=== PATIENT | male | born 1960 | race Caucasian/White ===

== ENCOUNTER 2017-09-11 19:46 | Observation (INO) | payer OTHER ==
[2017-09-11] MEDS ORDERED: GlucaGen 1 MG IV ONE (20:18)
[2017-09-11] MEDS ORDERED: Zofran 4 MG/2 ML VIAL IV ONE (20:18)
[2017-09-11] MEDS ORDERED: Zofran 4 MG/2 ML VIAL ONE (20:20)
[2017-09-11] MEDS: Sodium Chloride 0.9% 1000 ML 1,000 ML IV SCH (20:29)
--- NOTE | 2017-09-11 20:30 | ERPHSYRPT ---
- History of Present Illness Time Seen by Provider: 09/11/17 20:24 Source: patient Exam Limitations: no limitations Patient Subjective Stated Complaint: c/o pressure in epigastric for last few days, after trying to eat a piece of steak has been vomiting and feeling like has lump in upper chest Triage Nursing Assessment: lungs CTA bilat, having multiple episodes of phlegm and emesis blood tinged on assessment, c/o pain in upper chest Physician History: Pt has been c/o difficulty swallowing for 3 days, had stake at 18:00 PM tonight and unable to tolerate any liquids now, spitting up immediately, developed pain in the epigastric, lower retrosternal area. He denies large vomiting, fever, severe shortness of breath, but was spitting of blood streaks. Timing/Duration: hour(s) (2) Severity: moderate, severe Modifying Factors: Improves With: eating Associated Symptoms: chest pain Allergies/Adverse Reactions: No Known Drug Allergies Allergy (Unverified 11/08/15 11:06) Home Medications: Albuterol 2.5 mg/3 ml Neb [Proventil 2.5 mg/3 ml Neb] 1 neb IH QID PRN PRN 11/08/15 [History] Albuterol Sulfate [Ventolin Hfa] 2 puffs IH Q4HPRN PRN 11/08/15 [History] Fluticasone/Vilanterol [Breo Ellipta 100-25 Mcg INH] 1 puff IH DAILY 11/08/15 [ History] Hydrocodone/APAP 10/325 mg [[place] 10/325 MG Tablet] 1 tab PO .Q5HPRN 11/07 [History] Diclofenac Sodium [Voltaren] 100 gm TP QID 12/14/16 [History] Divalproex Sodium [Depakote ER] 500 mg PO BID 12/14/16 [History] Clonidine HCl 0.1 mg [Catapres 0.1 MG] 1 tab PO BID 09/11/17 [History] Hx Tetanus, Diphtheria Vaccination/Date Given: Yes Hx Influenza Vaccination/Date Given: No Hx Pneumococcal Vaccination/Date Given: No Immunizations Up to Date: Yes - Review of Systems Constitutional: No Symptoms Respiratory: Cough, Other (hemoptysis) Cardiac: Chest Pain Abdominal/Gastrointestinal: Abdominal Pain, Vomiting All Other Systems: Reviewed and Negative - Past Medical History Pertinent Past Medical History: Yes Neurological History: Migraines ENT History: No Pertinent History Cardiac History: Hypertension Respiratory History: COPD, Sleep Apnea Endocrine Medical History: Other Musculoskeletal History: Osteoarthritis GI Medical History: No Pertinent History History: No Pertinent History Psycho-Social History: Anxiety, Depression, Panic Disorder, Other Male Reproductive Disorders: No Pertinent History Other Medical History: degenerative OA, Pancreatitis, - Past Surgical History Past Surgical History: Yes Neuro Surgical History: No Pertinent History Cardiac: No Pertinent History Respiratory: No Pertinent History Gastrointestinal: No Pertinent History Genitourinary: No Pertinent History Musculoskeletal: Other Male Surgical History: No Pertinent History Other Surgical History: cyst to tailbone. rt shoulder 09/01/15 - Social History Smoking Status: Never smoker Exposure to second hand smoke: Yes Drug Use: marijuana Patient Lives Alone: Yes - Nursing Vital Signs Nursing Vital Signs: Initial Vital Signs Temperature 97.3 F 09/11/17 19:57 Pulse Rate 100 H 09/11/17 19:57 Respiratory Rate 20 09/11/17 19:57 Blood Pressure 152/96 09/11/17 19:57 O2 Sat by Pulse Oximetry 99 09/11/17 19:57 Pain Scale Pain Intensity 5 - Physical Exam General Appearance: no apparent distress Eye Exam: eyes nml inspection Ears, Nose, Throat Exam: normal ENT inspection, pharynx normal Neck Exam: normal inspection, non-tender, supple, No mass Respiratory Exam: normal breath sounds, lungs clear, airway intact, No chest tenderness Cardiovascular Exam: regular rate/rhythm, normal heart sounds, normal peripheral pulses, No murmur Gastrointestinal/Abdomen Exam: soft, normal bowel sounds, No tenderness, No distention Back Exam: normal inspection Extremity Exam: normal inspection, No calf tenderness Neurologic Exam: alert, oriented x 3 Skin Exam: normal color, warm, dry Lymphatic Exam: No adenopathy SpO2 Interpretation: normal SpO2: 99 Oxygen Delivery: Room Air - Course Nursing assessment & vital signs reviewed: Yes EKG Interpreted by Me: RATE, Sinus Rhythm, Right Fisher Deviation, NORMAL INTERVALS, Non-specific ST Changes - Radiology Exams Chest X-ray Interpretation: Interpreted by me, Negative Ordered Tests: Active Orders 24 hr Category Date Time Status Up Ad Christelle ROUTINE Activity 09/11/17 21:46 Ordered Admission/Status Order ROUTINE Care 09/11/17 21:45 Ordered Code Status Order ROUTINE Care 09/11/17 21:45 Ordered EKG-ER Only STAT Care 09/11/17 20:49 Active IV Care Q6H Care 09/11/17 21:45 Ordered IV Insertion STAT Care 09/11/17 20:31 Active Vital Signs Q6H Care 09/11/17 21:45 Ordered Consult Surgery ROUTINE Cons 09/11/17 21:45 Ordered NPO Diet 09/11/17 21:46 Ordered CHEST 2 VIEWS (PA AND LAT) Stat Exams 09/11/17 20:50 Taken CBC W DIFF Stat Lab 09/11/17 20:58 Completed CK-Creatinine Phosphokinase Stat Lab 09/11/17 20:58 Completed CMP Stat Lab 09/11/17 20:58 Completed LIPASE Stat Lab 09/11/17 20:58 Completed PROTIME WITH INR Stat Lab 09/11/17 20:49 Completed TROPONIN Q3H Lab 09/11/17 20:58 Completed TROPONIN Q3H Lab 09/12/17 00:00 Ordered TROPONIN Q3H Lab 09/12/17 03:00 Ordered TROPONIN Q3H Lab 09/12/17 06:00 Ordered TROPONIN Q3H Lab 09/12/17 09:00 Ordered Medication Summary Generic Name Dose Route Start Last Admin Trade Name Freq PRN Reason Stop Dose Admin Albuterol/Ipratropium 3 ml 09/11/17 21:45 Duoneb 0.5-3 Mg/3 Ml Neb IH 10/11/17 21:44 Q4HPRN PRN SHORTNESS OF BREATH/WHEEZING Famotidine 20 mg 09/12/17 10:00 09/11/17 21:35 Pepcid 20 Mg Vial IV 10/12/17 09:59 20 mg DAILY KASSIDY Administration Sodium Chloride 1,000 mls @ 100 mls/hr 09/11/17 20:30 09/11/17 20:29 Sodium Chloride 0.9% 1000 Ml IV 10/11/17 20:29 100 mls/hr .Q10H KASSIDY Administration Sodium Chloride 1,000 mls @ 100 mls/hr 09/11/17 21:45 Sodium Chloride 0.9% 1000 Ml IV 10/11/17 21:44 .Q10H KASSIDY Morphine Sulfate 2 mg 09/11/17 21:45 Morphine Sulfate 2 Mg Inj IV 09/16/17 21:44 Q4H PRN PRN PAIN Ondansetron HCl 4 mg 09/11/17 21:45 Zofran 4 Mg/2 Ml Vial IV 10/11/17 21:44 Q6H PRN PRN NAUSEA/VOMITING Discontinued Medications Generic Name Dose Route Start Last Admin Trade Name Freq PRN Reason Stop Dose Admin Al Hydrox/Mg Hydrox/Simethicone Confirm 09/11/17 21:31 Maalox Es 30 Ml Unit Dose Administered 09/11/17 21:32 Dose 30 ml .ROUTE .STK-MED ONE Famotidine Confirm 09/11/17 21:31 Pepcid 20 Mg Vial Administered 09/11/17 21:32 Dose 20 mg IV .STK-MED ONE Glucagon 1 mg 09/11/17 20:18 09/11/17 20:30 Glucagen 1 Mg IV 09/11/17 20:19 1 mg STAT ONE Administration Glucagon Confirm 09/11/17 20:31 Glucagen 1 Mg Administered 09/11/17 20:32 Dose 1 mg .ROUTE .STK-MED ONE Lidocaine HCl Confirm 09/11/17 21:31 Xylocaine Hcl Viscous * Administered 09/11/17 21:32 Dose 15 ml .ROUTE .STK-MED ONE Magnesium Hydroxide 45 ml 09/11/17 21:25 09/11/17 21:35 Gi Cocktail 45 Ml (Maalox/Lidocaine) PO 09/11/17 21:26 45 ml STAT ONE Administration Ondansetron HCl 4 mg 09/11/17 20:18 09/11/17 20:29 Zofran 4 Mg/2 Ml Vial IV 09/11/17 20:19 4 mg STAT ONE Administration Ondansetron HCl Confirm 09/11/17 20:20 Zofran 4 Mg/2 Ml Vial Administered 09/11/17 20:21 Dose 4 mg .ROUTE .STK-MED ONE Lab/Rad Data: Laboratory Result Diagrams 09/11/17 20:58 09/11/17 20:58 Laboratory Results 09/11/17 09/11/17 09/11/17 Range/Units 20:58 20:58 20:58 WBC 12.7 H (4.0-10.5) K/mm3 RBC 4.88 (4.1-5.6) M/mm3 Hgb 15.3 (12.5-18.0) gm/dl Hct 43.8 (42-50) % MCV 89.8 (78-100) fl MCH 31.4 (26-32) pg MCHC 34.9 (32-36) g/dl RDW 13.7 (11.5-14.0) % Plt Count 264 (150-450) K/mm3 MPV 10.2 H (6-9.5) fl Gran % 76.4 H (36.0-66.0) % Lymphocytes % 17.3 L (24.0-44.0) % Monocytes % 5.2 (0.0-12.0) % Eosinophils % 0.9 (0.00-5.0) % Basophils % 0.2 (0.0-0.4) % Basophils # 0.02 (0-0.4) INR (0.8-3.0) Sodium 140 (136-145) mEq/L Potassium 3.5 (3.5-5.1) mEq/L Chloride 101 (98-107) mEq/L Carbon Dioxide 27.6 (21-32) mEq/L Anion Gap 15.1 H (5-15) MEQ/L BUN 11 (9-20) mg/dL Creatinine 1.01 (0.55-1.30) mg/dl Estimated GFR > 60 ML/MIN Glucose 129 H (70-110) MG/DL Calcium 9.2 (8.5-10.1) mg/dL Total Bilirubin 0.40 (0.2-1.0) mg/dL AST 18 (15-37) U/L ALT 23 (12-78) U/L Alkaline Phosphatase 63 (46-116) U/L Creatine Kinase 71 (39-308) U/L Troponin I < 0.017 (0.000-0.056) ng/ml Serum Total Protein 8.5 H (6.4-8.2) gm/dL Albumin 4.5 (3.4-5.0) g/dL Lipase 92 (73-393) U/L 09/11/17 Range/Units 20:49 WBC (4.0-10.5) K/mm3 RBC (4.1-5.6) M/mm3 Hgb (12.5-18.0) gm/dl Hct (42-50) % MCV (78-100) fl MCH (26-32) pg MCHC (32-36) g/dl RDW (11.5-14.0) % Plt Count (150-450) K/mm3 MPV (6-9.5) fl Gran % (36.0-66.0) % Lymphocytes % (24.0-44.0) % Monocytes % (0.0-12.0) % Eosinophils % (0.00-5.0) % Basophils % (0.0-0.4) % Basophils # (0-0.4) INR 0.95 (0.8-3.0) Sodium (136-145) mEq/L Potassium (3.5-5.1) mEq/L Chloride (98-107) mEq/L Carbon Dioxide (21-32) mEq/L Anion Gap (5-15) MEQ/L BUN (9-20) mg/dL Creatinine (0.55-1.30) mg/dl Estimated GFR ML/MIN Glucose (70-110) MG/DL Calcium (8.5-10.1) mg/dL Total Bilirubin (0.2-1.0) mg/dL AST (15-37) U/L ALT (12-78) U/L Alkaline Phosphatase (46-116) U/L Creatine Kinase (39-308) U/L Troponin I (0.000-0.056) ng/ml Serum Total Protein (6.4-8.2) gm/dL Albumin (3.4-5.0) g/dL Lipase (73-393) U/L - Progress Progress: improved Progress Note: 09/11/17 21:48 Improved after 1 mg iv Glucagon, tolerates PO liquids, does not regurgitate, denies severe pain or SOB, no diaphoresis, or distress, stable. I called Dr Vimal Sarabia, discussed our findings and patient's current condition, he agreed to consult patient in the morning. I also called Dr Campbell, discussed this case in details, he agreed to admit patient for observation, pt and his family was informed, and they agreed. - Departure Time of Disposition: 21:50 Departure Disposition: Observation Clinical Impression: Epigastric pain Abdominal pain Qualifiers: Abdominal location: epigastric Qualified Code(s): R10.13 - Epigastric pain GERD (gastroesophageal reflux disease) Qualifiers: Esophagitis presence: esophagitis presence not specified Qualified Code(s): K21.9 - Gastro-esophageal reflux disease without esophagitis Condition: Stable Critical Care Time: No Referrals: GHAZAL CAMPBELL [Primary Care Provider] -
[2017-09-11] MEDS ORDERED: GlucaGen 1 MG ONE (20:31)
[2017-09-11 21:03] LABS: BASOPHIL % 0.2 % (0.0-0.4); Basophil (Absolute #) 0.02 (0-0.4); Eosinophil % 0.9 % (0.00-5.0); Eosinophil (Absolute #) 0.12 (0-0.5); Granulocyte Absolute (ANC) 9.69 (1.4-6.9); Granulocytes % 76.4 % (36.0-66.0); Hematocrit 43.8 % (42-50); Hemoglobin 15.3 gm/dl (12.5-18.0); Lymphocytes % 17.3 % (24.0-44.0); Mean Cell Volume 89.8 fl (78-100); Mean Corpuscular Hemoglobin 31.4 pg (26-32); Mean Corpuscular Hgb Concent. 34.9 g/dl (32-36); Mean Platelet Volume 10.2 fl (6-9.5); Monocyte (Absolute #) 0.66 (0.0-1.3); Monocytes % 5.2 % (0.0-12.0); Platelet Count 264 K/mm3 (150-450); Red Blood Count 4.88 M/mm3 (4.1-5.6); Red Cell Distribution Width 13.7 % (11.5-14.0); White Blood Count 12.7 K/mm3 (4.0-10.5)
[2017-09-11 21:24] LABS: INR 0.95 (0.8-3.0)
[2017-09-11] MEDS ORDERED: GI COCKTAIL 45 ML (Maalox/Lidocaine) PO ONE (21:25)
[2017-09-11] MEDS ORDERED: MAALOX ES 30 ML UNIT DOSE ONE (21:31)
[2017-09-11] MEDS ORDERED: XYLOCAINE HCl Viscous ONE (21:31)
[2017-09-11] MEDS ORDERED: Pepcid 20 MG VIAL IV ONE (21:31)
[2017-09-11 21:33] LABS: ALBUMIN 4.5 g/dL (3.4-5.0); ALKALINE PHOSPHATASE 63 U/L (46-116); ANION GAP 15.1 MEQ/L (5-15); BLOOD UREA NITROGEN 11 mg/dL (9-20); CHLORIDE 101 mEq/L (98-107); CK-Creatinine Phosphokinase 71 U/L (39-308); Calcium 9.2 mg/dL (8.5-10.1); Carbon Dioxide 27.6 mEq/L (21-32); Creatinine 1 1.01 mg/dl (0.55-1.30); EST GLOMERULAR FILTRATION RATE > 60 ML/MIN; Glucose 129 MG/DL (70-110); LIPASE 92 U/L (73-393); Potassium 3.5 mEq/L (3.5-5.1); SGOT/AST 18 U/L (15-37); SGPT/ALT 23 U/L (12-78); SODIUM 140 mEq/L (136-145); Total Protein 8.5 gm/dL (6.4-8.2)
[2017-09-11] MEDS: Pepcid 20 MG VIAL IV SCH (21:35)
[2017-09-11] MEDS ORDERED: MORPHINE SULFATE 2 MG INJ IV PRN (21:45)
[2017-09-11] MEDS ORDERED: Sodium Chloride 0.9% 1000 ML 1,000 ML IV SCH (21:45)
[2017-09-11] MEDS ORDERED: Zofran 4 MG/2 ML VIAL IV PRN (21:45)
[2017-09-11] MEDS ORDERED: DUONEB 0.5-3 MG/3 ml Neb IH PRN (21:45)
[2017-09-12] MEDS ORDERED: PROVENTIL COMMON CANISTER IH PRN (00:09)
[2017-09-12] MEDS: Sodium Chloride 0.9% 1000 ML 1,000 ML IV SCH (06:17)
[2017-09-12] MEDS ORDERED: Norco 10/325 MG Tablet PO PRN (07:00)
[2017-09-12] MEDS ORDERED: PROVENTIL 2.5 MG/3 ML NEB IH PRN (07:00)
[2017-09-12] MEDS ORDERED: Ventolin Hfa MDI IH PRN (07:00)
--- NOTE | 2017-09-12 08:04 | PCM.HP ---
History of Present Illness - Chief Complaint Chief Complaint: epigastric pain, GERD Date: 09/12/17 History of Present Illness: is a 56 year old male. started having increased heartburn and epigastric pain over the last few weeks and started getting a little trouble swallowing about 5 days ago and was vomiting after something got stuck but last night went out to eat and tried to eat a piece of steak and it felt like it got stuck had severe pain and was vomiting yellow foam and some blood tinged. He is still having some epigastric tenderness. The pain was relieved with glucagon and he did take his night time pill without difficulty. - Review of Systems Constitutional: No Fever, No Chills Eyes: No Symptoms Ears, Nose, & Throat: No Symptoms Respiratory: No Cough, No Short Of Breath Cardiac: No Chest Pain, No Edema, No Syncope Abdominal/Gastrointestinal: Abdominal Pain, Nausea, Vomiting, No Diarrhea Genitourinary Symptoms: No Dysuria Musculoskeletal: Back Pain, No Neck Pain Skin: No Rash Neurological: No Dizziness, No Focal Weakness, No Sensory Changes Psychological: No Symptoms Endocrine: No Symptoms Hematologic/Lymphatic: No Symptoms Immunological/Allergic: No Symptoms Medications & Allergies Home Medications: Home Medication List Albuterol 2.5 mg/3 ml Neb [Proventil 2.5 mg/3 ml Neb] 1 neb IH QID PRN PRN 11/08/15 [History Confirmed 09/11/17] Albuterol Sulfate [Ventolin Hfa] 2 puffs IH Q4HPRN PRN 11/08/15 [History Confirmed 09/11/17] Fluticasone/Vilanterol [Breo Ellipta 100-25 Mcg INH] 1 puff IH DAILY 11/08/15 [ History Confirmed 09/11/17] Hydrocodone/APAP 10/325 mg [[place] 10/325 MG Tablet] 1 tab PO .Q5HPRN 11/07 [History Confirmed 09/11/17] Amlodipine Besylate 5 mg [Norvasc 5 mg] 5 mg PO DAILY #0 tablet 11/11/15 [ Rx Confirmed 09/11/17] Diclofenac Sodium [Voltaren] 100 gm TP QID 12/14/16 [History Confirmed 09/11/17] Divalproex Sodium [Depakote ER] 500 mg PO DAILY 12/14/16 [History Confirmed ] Amitriptyline HCl 25 mg [Elavil 25 mg] 75 mg PO HS 09/11/17 [History Confirmed 09/11/17] Clonidine HCl 0.1 mg [Catapres 0.1 MG] 1 tab PO BID 09/11/17 [History Confirmed 09/11/17] Omeprazole 20 MG [Prilosec 20 mg] 20 mg PO DAILY 09/11/17 [History Confirmed ] Allergies/Adverse Reactions: Allergies Allergy/AdvReac Type Severity Reaction Status Date / Time No Known Drug Allergies Allergy Unverified 11/08/15 11:06 - Past Medical History Past Medical History: Yes Neurological History: Migraines ENT History: No Pertinent History Cardiac History: Hypertension Respiratory History: Asthma, COPD, Sleep Apnea Endocrine Medical History: Other Musculoskelatal History: Osteoarthritis GI Medical History: No Pertinent History History: No Pertinent History Pyscho-Social History: Anxiety, Depression, Panic Disorder, Other Male Reproductive Disorders: No Pertinent History Comment: degenerative OA, Pancreatitis - Past Surgical History Past Surgical History: Yes Neuro Surgical History: No Pertinent History Cardiac History: No Pertinent History Respiratory Surgery: No Pertinent History GI Surgical History: No Pertinent History Genitourinary Surgical Hx: No Pertinent History Musculskeletal Surgical Hx: Other Male Surgical History: No Pertinent History Other Surgical History: cyst to tailbone. rt shoulder 09/01/15 - Social History Smoking Status: Never smoker Exposure to second hand smoke: Yes Alcohol: Occasionally Drug Use: marijuana - Physical Exam Vital Signs: Vital Signs - 24 hr Temp Pulse Resp BP Pulse Ox 09/12/17 07:38 97.6 F 80 18 148/78 95 09/12/17 04:00 97.8 F 81 18 156/81 96 09/11/17 23:06 83 18 97 09/11/17 22:22 97.5 F 86 18 143/93 94 L 09/11/17 21:51 99 09/11/17 21:17 88 18 139/83 97 09/11/17 19:57 97.3 F 100 H 20 152/96 99 General Appearance: no apparent distress, alert, obese Neurologic Exam: alert, oriented x 3, cooperative, normal mood/affect, nml cerebellar function, nml station & gait, sensation nml, No motor deficits Eye Exam: PERRL/EOMI, eyes nml inspection Ears, Nose, Throat Exam: normal ENT inspection, TMs normal, pharynx normal, moist mucous membranes Neck Exam: normal inspection, non-tender, supple, full range of motion Respiratory Exam: normal breath sounds, lungs clear, No respiratory distress Cardiovascular Exam: regular rate/rhythm, normal heart sounds, normal peripheral pulses Gastrointestinal/Abdomen Exam: soft, normal bowel sounds, tenderness (epigastric ), other (Diastasis recti), No mass Back Exam: normal inspection, normal range of motion, No CVA tenderness, No vertebral tenderness Extremity Exam: normal inspection, normal range of motion, pelvis stable Skin Exam: normal color, warm, dry, No rash Lymphatic Exam: No adenopathy Results - Other Procedures and Tests Respiratory Therapy 09/12/17 00:09 Respiratory MDI PRN Respiratory Nebulizer PRN 09/12/17 00:12 Respiratory Therapy Consult ROUTINE 09/12/17 10:00 Respiratory MDI DAILY Assessment/Plan (1) Dysphagia Current Visit: Yes Status: Acute Assessment & Plan: likely food bolus improved with glucagon has EGD scheduled with Dr. Sarabia this afternoon discussed the procedure with the patient and he plans to proceed with this continue ppi iv in the meantime Code(s): R13.10 - DYSPHAGIA, UNSPECIFIED (2) Vomiting Current Visit: Yes Status: Acute Qualifiers: Vomiting type: unspecified Vomiting Intractability: non-intractable Nausea presence: with nausea Qualified Code(s): R11.2 - Nausea with vomiting, unspecified Code(s): R11.10 - VOMITING, UNSPECIFIED (3) GERD (gastroesophageal reflux disease) Current Visit: Yes Status: Chronic Qualifiers: Esophagitis presence: esophagitis presence not specified Qualified Code(s) : K21.9 - Gastro-esophageal reflux disease without esophagitis Code(s): K21.9 - GASTRO-ESOPHAGEAL REFLUX DISEASE WITHOUT ESOPHAGITIS (4) Essential hypertension Current Visit: Yes Status: Chronic Code(s): I10 - ESSENTIAL (PRIMARY) HYPERTENSION
--- NOTE | 2017-09-12 08:35 | XRAY ---
Indication: Choking sensation after eating steak. Pain and vomiting. Comparison: None PA/lateral chest demonstrates normal heart and lungs. Bony thorax intact. No radiopaque foreign body.
[2017-09-12] MEDS ORDERED: NON-FORMULARY ITEM (Omeprazole 20 Mg [Prilosec 20 Mg] 20 MG) PO SCH (10:00)
[2017-09-12] MEDS ORDERED: DIVALPROEX SODIUM 500 MG PO SCH (10:00)
[2017-09-12] MEDS ORDERED: Depakote EXTENDED RELEASE 250 MG PO SCH (10:00)
[2017-09-12] MEDS ORDERED: PROTONIX 40 MG IV IV SCH (10:00)
[2017-09-12] MEDS ORDERED: Catapres 0.1 MG PO SCH (10:00)
[2017-09-12] MEDS ORDERED: PATIENT OWN MEDICATION IH SCH (10:00)
[2017-09-12] MEDS ORDERED: NORVASC 5 MG PO SCH (10:00)
[2017-09-12] MEDS ORDERED: FLUCELVAX QUAD 2017-2018 SYR IM ONE (10:00)
[2017-09-12] MEDS ORDERED: Protonix 40MG Tablet PO SCH (10:00)
[2017-09-12] MEDS: Pepcid 20 MG VIAL IV SCH (10:47)
[2017-09-12 12:52] VITALS: O2SAT 96
[2017-09-12] MEDS ORDERED: Lactated Ringers 1,000 ML IV ONE (13:30)
[2017-09-12] MEDS ORDERED: Lactated Ringers 1,000 ML IV SCH (13:33)
[2017-09-12 16:12] VITALS: BP 158/80; PULSE 79
--- NOTE | 2017-09-12 18:18 | PCM.DCORD ---
- Discharge Discharge Date: 09/12/17 Disposition: Home, Self-Care Condition: Stable Prescriptions: New Pantoprazole Sodium [Protonix] 40 mg PO UD #42 tablet.dr Continue Hydrocodone/APAP 10/325 mg [[place] 10/325 MG Tablet] 1 tab PO .Q5HPRN Albuterol 2.5 mg/3 ml Neb [Proventil 2.5 mg/3 ml Neb] 1 neb IH QID PRN PRN PRN Reason: Shortness Of Breath/Wheezing Fluticasone/Vilanterol [Breo Ellipta 100-25 Mcg INH] 1 puff IH DAILY Amlodipine Besylate 5 mg [Norvasc 5 mg] 5 mg PO DAILY #0 tablet Divalproex Sodium [Depakote ER] 500 mg PO DAILY Clonidine HCl 0.1 mg [Catapres 0.1 MG] 1 tab PO BID Amitriptyline HCl 25 mg [Elavil 25 mg] 75 mg PO HS Albuterol Sulfate [Ventolin Hfa] 2 puffs IH Q4HPRN PRN #1 inh PRN Reason: Shortness Of Breath/Wheezing Discontinued Diclofenac Sodium [Voltaren] 100 gm TP QID Omeprazole 20 MG [Prilosec 20 mg] 20 mg PO DAILY Additional Instructions: take the protonix twice a day for 2 weeks then can decrease to daily It is ok to take Tylenol (acetaminophen) but no anti inflammatories like ibuprofen, aspirin or aleve Avoid tobacco, alcohol and caffeine. Follow up with: GHAZAL CAMPBELL [Primary Care Provider] - 09/19/17 1:45 pm
[2017-09-12] MEDS ORDERED: DIPRIVAN 200 MG/20 ML IV ONE (18:34)
[2017-09-12] MEDS ORDERED: Ketamine HCl 50 MG/ML IV ONE (18:34)
[2017-09-12] MEDS ORDERED: ELAVIL 25 MG PO SCH (22:00)
--- NOTE | 2017-09-13 09:12 | OP ---
SURGERY DATE/TIME: 09/12/2017 1455 PREOPERATIVE DIAGNOSIS: Dysphagia with possible foreign body. POSTOPERATIVE DIAGNOSIS: Grade III gastroesophageal reflux disease with a band of grade II irritation with three or four vertical streaks of grade III irritation into the esophagus, small hiatal hernia. There was no stricture. No active bleeding. PROCEDURE: EGD. SURGEON: iNk Sarabia M.D. ANESTHESIA: MAC. COMPLICATIONS: None. CONDITION: Stable. INDICATION: A patient requiring evaluation. DESCRIPTION OF PROCEDURE: Taken to the endoscopy suite. MAC sedation provided by anesthesia and was excellent. The scope was introduced. Pharyngoesophageal junction normal. Esophagus normal. Down to 6 cm below the gastroesophageal junction there were three or four streaks that were 4 cm long and then there was a band about 1 cm wide 360 but there was no stricture. The aperture was about size 54 - 56. There was a small hiatal hernia 1 inch. Fundus, body, antrum, pylorus, duodenal bulb, in the second portion of the duodenum there was superficial duodenal ulceration. Ampullary was normal. Scope withdrawn. The patient tolerated the procedure satisfactorily.
== END 2017-09-12 18:35 | disposition home or self-care (01) ==
LOC: ED 19:46 → MED SURG 22:10
PROVIDERS: ADMIT Family Medicine; ATTEND Family Medicine
PROC: 0DJ08ZZ Inspection of Upper Intestinal Tract, Via Natural or Artificial Opening Endoscopic (ICD-10-PCS; principal; 2017-09-12)
DX: K26.9 Duodenal ulcer, unspecified as acute or chronic, without hemorrhage or perforation (principal); K44.9 Diaphragmatic hernia without obstruction or gangrene; K21.9 Gastro-esophageal reflux disease without esophagitis; I10 Essential (primary) hypertension; J45.909 Unspecified asthma, uncomplicated; J44.9 Chronic obstructive pulmonary disease, unspecified; G47.30 Sleep apnea, unspecified; M19.90 Unspecified osteoarthritis, unspecified site; F41.8 Other specified anxiety disorders; F12.99 Cannabis use, unspecified with unspecified cannabis-induced disorder; R13.10 Dysphagia, unspecified
CPT/HCPCS: 00731; 36000; 36415; 71046; 80053; 82550; 83690; 84484; 85025; 85610; 93005; 94640; 94760; 96360; 96361; 96374; 96375; 99285; G0008; G0378; J1610; J2405; J2704; 90682; A9270-GY

== ENCOUNTER 2020-02-14 20:58 | Emergency (ER) | payer OTHER ==
[2020-02-14] MEDS ORDERED: XYLOCAINE HCl Viscous MM ONE (20:59)
[2020-02-14 21:04] VITALS: O2SAT 97
[2020-02-14] MEDS ORDERED: GI COCKTAIL 45 ML (Maalox/Lidocaine) PO ONE (21:09)
[2020-02-14] MEDS ORDERED: XYLOCAINE HCl Viscous ONE (21:20)
[2020-02-14] MEDS ORDERED: MAALOX ES 30 ML UNIT DOSE ONE (21:20)
[2020-02-14 21:27] LABS: Absolute Neutrophil Ct (ANC) 5.19 (1.4-6.9); BASOPHIL % 0.4 % (0.0-0.4); Basophil (Absolute #) 0.03 (0-0.4); Eosinophil % 2.1 % (0.00-5.0); Eosinophil (Absolute #) 0.18 (0-0.5); Hematocrit 41.7 % (42-50); Hemoglobin 14.2 gm/dl (12.5-18.0); Lymphocyte (Absolute #) 2.53 (1.0-4.6); Lymphocytes % 29.9 % (24.0-44.0); Mean Cell Volume 94.1 fl (78-100); Mean Corpuscular Hemoglobin 32.1 pg (26-32); Mean Corpuscular Hgb Concent. 34.1 g/dl (32-36); Mean Platelet Volume 9.4 fl (7.5-11.0); Monocyte (Absolute #) 0.52 (0.0-1.3); Monocytes % 6.2 % (0.0-12.0); Neutrophil % 61.4 % (36.0-66.0); Platelet Count 179 K/mm3 (150-450); Red Blood Count 4.43 M/mm3 (4.1-5.6); Red Cell Distribution Width 13.6 % (11.5-14.0); White Blood Count 8.5 K/mm3 (4.0-10.5)
[2020-02-14 21:40] LABS: ALBUMIN 4.4 g/dL (3.5-5.0); ALKALINE PHOSPHATASE 51 U/L (38-126); ANION GAP 15.3 MEQ/L (5-15); BLOOD UREA NITROGEN 11 mg/dL (9-20); CHLORIDE 98 mmol/L (98-107); CK-Creatinine Phosphokinase 45 U/L (55-170); Carbon Dioxide 27 mmol/L (22-30); Creatinine 1 0.82 mg/dL (0.66-1.25); Glucose 167 mg/dL (74-106); Potassium 4.2 mmol/L (3.5-5.1); SGOT/AST 45 U/L (17-59); SGPT/ALT 40 U/L (0-50); SODIUM 137 mmol/L (137-145); Total Protein 7.5 g/dL (6.3-8.2)
--- NOTE | 2020-02-14 22:17 | ERPHSYRPT ---
- History of Present Illness Time Seen by Provider: 02/14/20 21:00 Historian: patient Exam Limitations: no limitations Patient Subjective Stated Complaint: "I've had this chest pain indegestion stuff for the last two days. This isn't the first time its happened." Triage Nursing Assessment: Pt presented alert et oriented x3 answering questions appropriately. Pt reported chest pain described as a "burning like heartburn." Pt denied vomiting/diarrhea. Pt reported no alleviating/aggrevating factors. Pupils 4mm reactive. Physician History: tHIS Is a 59-year-old patient presenting to the ED with complaints of heartburn for the past 3 days Reports that he has hiatal hernia, has chronic heartburn, reports that he takes Prilosec, it is progressively become worse He denies chest pain/feevr/decreased oral intake/ urinary or bowel problems Patient's daughter is with him and states that patient is short of breath, tired and nauseous Patient denies any diaphoresis And rates his abdominal pain at 6-7/10, intermittent pain increases with swallowing, resolved with taking omeprazole, non-radiating Timing/Duration: day(s), week(s) (3) Activities at Onset: none Quality: burning Location: epigastric Chest Pain Radiation: no radiation Severity of Pain-Max: mild Modifying Factors: Improves With: antacids Associated Symptoms: nausea, abdominal pain, shortness of breath, No cough, No hurts to breathe, No diaphoresis, No chills, No fever Prior Chest Pain/Cardiac Workup: non-cardiac Nitro Today/Relief: no nitro taken today Aspirin Treatment Today: no aspirin today Allergies/Adverse Reactions: No Known Drug Allergies Allergy (Unverified 02/14/20 21:01) Home Medications: Albuterol 2.5 mg/3 ml Neb [Proventil 2.5 mg/3 ml Neb] 1 neb IH QID PRN PRN 11/08/15 [History] Divalproex Sodium [Depakote ER] 500 mg PO DAILY 12/14/16 [History] Amitriptyline HCl 25 mg [Elavil 25 mg] 75 mg PO HS 09/11/17 [History] Clonidine HCl 0.1 mg [Catapres 0.1 MG] 1 tab PO BID 09/11/17 [History] Alprazolam 0.5 mg [xanAX 0.5 MG] 1 tab PO TID 02/14/20 [History] Amlodipine Besylate 5 mg [Norvasc 5 mg] 10 mg PO DAILY 02/14/20 [History] Furosemide 20 mg [Lasix 20 mg] 1 tab PO DAILY 02/14/20 [History] Gabapentin 2 cap PO TID 02/14/20 [History] Metformin HCl 1 tab PO TID 02/14/20 [History] Potassium Chloride 10 Meq Tab* [Klor Con 10 MEQ] 1 tab PO DAILY 02/14/20 [History] Pravastatin Sodium 1 tab PO DAILY 02/14/20 [History] glipiZIDE [Glipizide] 1 tab PO DAILY 02/14/20 [History] Hx Tetanus, Diphtheria Vaccination/Date Given: No Hx Influenza Vaccination/Date Given: Yes Hx Pneumococcal Vaccination/Date Given: No Travel Risk - International Travel Have you traveled outside of the country in past 3 weeks: No (n) If Yes, where;: n - Coronavirus Screening Close contact with a COVID-19 positive Pt in past 14-21 Days: No - Review of Systems Constitutional: No Symptoms Eyes: No Symptoms Ears, Nose, & Throat: No Symptoms Respiratory: No Symptoms Cardiac: No Symptoms Abdominal/Gastrointestinal: Abdominal Pain, Nausea Genitourinary Symptoms: No Symptoms Musculoskeletal: No Symptoms Skin: No Symptoms Neurological: No Symptoms Psychological: No Symptoms Endocrine: No Symptoms All Other Systems: Reviewed and Negative - Past Medical History Pertinent Past Medical History: Yes Neurological History: Migraines ENT History: No Pertinent History Cardiac History: Hypertension Respiratory History: Asthma, COPD, Sleep Apnea Endocrine Medical History: Other Musculoskeletal History: Osteoarthritis GI Medical History: No Pertinent History History: No Pertinent History Psycho-Social History: Anxiety, Depression, Panic Disorder, Other Male Reproductive Disorders: No Pertinent History Other Medical History: degenerative OA, Pancreatitis - Past Surgical History Past Surgical History: Yes Neuro Surgical History: No Pertinent History Cardiac: No Pertinent History Respiratory: No Pertinent History Gastrointestinal: No Pertinent History Genitourinary: No Pertinent History Musculoskeletal: Other Male Surgical History: No Pertinent History Other Surgical History: cyst to tailbone. rt shoulder 09/01/15 - Social History Smoking Status: Never smoker Exposure to second hand smoke: Yes Drug Use: marijuana Patient Lives Alone: No - Nursing Vital Signs Nursing Vital Signs: Initial Vital Signs Temperature 97.9 F 02/14/20 20:59 Pulse Rate 85 02/14/20 20:59 Respiratory Rate 16 02/14/20 20:59 Blood Pressure 164/87 02/14/20 20:59 O2 Sat by Pulse Oximetry 97 02/14/20 20:59 Pain Scale Pain Intensity 6 - Physical Exam General Appearance: no apparent distress Eye Exam: PERRL/EOMI, eyes nml inspection Ears, Nose, Throat Exam: normal ENT inspection, TMs normal, pharynx normal Neck Exam: normal inspection, non-tender, supple, full range of motion Respiratory Exam: normal breath sounds, chest tenderness, lungs clear, No respiratory distress, No accessory muscle use Cardiovascular Exam: regular rate/rhythm, normal heart sounds, normal peripheral pulses Gastrointestinal/Abdomen Exam: soft, normal bowel sounds, tenderness (epigastric), No distention Back Exam: normal inspection, normal range of motion Extremity Exam: normal inspection, normal range of motion Neurologic Exam: alert, oriented x 3, cooperative, photographer portrait II-XII nml as tested Skin Exam: normal color Lymphatic Exam: No adenopathy SpO2 Interpretation: normal SpO2: 97 O2 Delivery: Room Air - Course EKG Interpreted by Me: Sinus Rhythm, NORMAL AXIS, NORMAL INTERVALS, NORMAL QRS, Non-specific ST Changes Rhythm Strip: Normal Sinus Rhythm Ordered Tests: Active Orders 24 hr Category Date Time Status EKG-ER Only STAT Care 02/14/20 21:08 Active ABDOMEN AND PELVIS W/0 CONTRAS [CT] Stat Exams 02/14/20 21:08 Taken CHEST 1 VIEW (PORTABLE) Stat Exams 02/14/20 21:07 Taken CBC W DIFF Stat Lab 02/14/20 21:15 Completed CK-Creatinine Phosphokinase Stat Lab 02/14/20 21:15 Completed CMP Stat Lab 02/14/20 21:15 Completed TROPONIN Q3H Lab 02/14/20 21:15 Completed TROPONIN Q3H Lab 02/15/20 00:15 Ordered TROPONIN Q3H Lab 02/15/20 03:15 Ordered TROPONIN Q3H Lab 02/15/20 06:15 Ordered TROPONIN Q3H Lab 02/15/20 09:15 Ordered Medication Summary Discontinued Medications Generic Name Dose Route Start Last Admin Trade Name Freq PRN Reason Stop Dose Admin Al Hydrox/Mg Hydrox/Simethicone Confirm 02/14/20 21:20 Maalox Es 30 Ml Unit Dose Administered 02/14/20 21:21 Dose 30 ml .ROUTE .STK-MED ONE Lidocaine HCl Confirm 02/14/20 21:20 Xylocaine Hcl Viscous * Administered 02/14/20 21:21 Dose 1 ml .ROUTE .STK-MED ONE Magnesium Hydroxide 45 ml 02/14/20 21:09 02/14/20 21:23 Gi Cocktail 45 Ml (Maalox/Lidocaine) PO 02/14/20 21:10 45 ml STAT ONE Administration Lab/Rad Data: Laboratory Result Diagrams 02/14/20 21:15 02/14/20 21:15 Laboratory Results 02/14/20 02/14/20 02/14/20 Range/Units 21:15 21:15 21:15 WBC 8.5 (4.0-10.5) K/mm3 RBC 4.43 (4.1-5.6) M/mm3 Hgb 14.2 (12.5-18.0) gm/dl Hct 41.7 L (42-50) % MCV 94.1 (78-100) fl MCH 32.1 H (26-32) pg MCHC 34.1 (32-36) g/dl RDW 13.6 (11.5-14.0) % Plt Count 179 (150-450) K/mm3 MPV 9.4 (7.5-11.0) fl Gran % 61.4 (36.0-66.0) % Eos # (Auto) 0.18 (0-0.5) Absolute Lymphs (auto) 2.53 (1.0-4.6) Absolute Monos (auto) 0.52 (0.0-1.3) Lymphocytes % 29.9 (24.0-44.0) % Monocytes % 6.2 (0.0-12.0) % Eosinophils % 2.1 (0.00-5.0) % Basophils % 0.4 (0.0-0.4) % Absolute Granulocytes 5.19 (1.4-6.9) Basophils # 0.03 (0-0.4) Sodium 137 (137-145) mmol/L Potassium 4.2 (3.5-5.1) mmol/L Chloride 98 (98-107) mmol/L Carbon Dioxide 27 (22-30) mmol/L Anion Gap 15.3 H (5-15) MEQ/L BUN 11 (9-20) mg/dL Creatinine 0.82 (0.66-1.25) mg/dL Estimated GFR > 60.0 ML/MIN Glucose 167 H (74-106) mg/dL Calcium 10.0 (8.4-10.2) mg/dL Total Bilirubin 0.30 (0.2-1.3) mg/dL AST 45 (17-59) U/L ALT 40 (0-50) U/L Alkaline Phosphatase 51 (38-126) U/L Creatine Kinase 45 L (55-170) U/L Troponin I < 0.012 (0.000-0.034) ng/mL Serum Total Protein 7.5 (6.3-8.2) g/dL Albumin 4.4 (3.5-5.0) g/dL - Progress Progress Note: 02/14/20 22:18 This is a 59-year-old patient presenting to the ED for evaluation of epigastric abdominal pain He was seen and evaluated in ED room 4 He was given a GI cocktail following which he felt much better EKG showed no m evidence of acute ischemia Workup Labs: CBC, CMP, troponins, CPK Results: all labs WNL. reviewed UA done 02/12/20- WNL Imaging CT abdomen pelvis witout contrast- no acute abnormality Medications given - GI cocktail 02/14/20 23:28 Pt. feels much better after GI cocktail discussed labs, advised F/u with pcp in am stable discharge - Departure Departure Disposition: Home (in stable condition) Clinical Impression: GERD (gastroesophageal reflux disease) Condition: Stable Critical Care Time: No Referrals: LRARY RESTREPO [Primary Care Provider] - Instructions: Acid Reflux and GERD in Adults (DC) Additional Instructions: Discharge/Care Plan JANE BRASWELL was seen on 02/14/20 in the Emergency Room. The patient was counseled regarding Diagnosis,Lab results, Imaging studies, need for follow up and when to return to the Emergency Room. Prescriptions given: Discharge Note I have spoken with the patient and/or caregivers. I have explained the patient's condition, diagnosis and treatment plan based on the information available to me at this time. I have answered the patient's and/or caregiver's questions and addressed any concerns. The patient and/or caregivers have as good understanding of the patient's diagnosis, condition and treatment plan as can be expected at this point. The vital signs have been stable. The patient's condition is stable and appropriate for discharge from the emergency department. The patient will pursue further outpatient evaluation with the primary care physician or other designated or consulting physician as outlined in the discharge instructions. The patient and/or caregivers are agreeable to this plan of care and follow-up instructions have been explained in detail. The patient and/or caregivers have received these instruction. The patient/and or caregivers are aware that any significant change in condition or worsening of symptoms should prompt an immediate return to this or the closest emergency department or call 911.
[2020-02-14 23:07] VITALS: BP 135/73; PULSE 77
--- NOTE | 2020-02-15 08:58 | XRAY ---
Indication: Epigastric pain. Comparison: September 11, 2017. Portable apical lordotic chest remains clear. Heart is not enlarged. Bony thorax intact with incidental small right humeral head bone cyst. No new/acute findings.
--- NOTE | 2020-02-15 08:58 | XRAY ---
Indication: Epigastric pain. Multiple contiguous axial images obtained through the abdomen and pelvis without contrast as ordered. Comparison: November 08, 2015. Lung bases again demonstrates mild bibasilar dependent atelectasis and stable tiny benign left lower lobe noncalcified nodule. No infiltrate or effusion. Heart is not enlarged. Stomach is distended with food/fluid with a few intraluminal medication/pills. Noncontrasted stomach and bowel loops appear nonobstructed. Stable small duodenal diverticulum. Normal appendix. There is now mild diffuse scattered colonic fecal debris throughout. No free fluid/air. Gallbladder partially contracted without gallstones or abnormal biliary distention. Remaining liver, pancreas, spleen, adrenal glands, kidneys, ureters, and bladder appear unremarkable for noncontrast exam. Minimal aortoiliac calcifications without AAA. Osseous structures intact with interval worsening mild/moderate degenerative changes throughout the thoracolumbar spine. No ventral hernias. Impression: 1. Mild fecal stasis without obstruction. 2. Stable small duodenal diverticulum and benign left lower lobe noncalcified micro-nodule. 3. Remaining CT abdomen/pelvis without contrast exam is negative. Comment: Preliminary interpretation was made by [facility]. No critical discrepancy.
== END 2020-02-14 23:45 | disposition home or self-care (01) ==
LOC: ED 20:58
DX: K21.9 Gastro-esophageal reflux disease without esophagitis (principal); R10.13 Epigastric pain; R11.0 Nausea; Z79.899 Other long term (current) drug therapy; I10 Essential (primary) hypertension
CPT/HCPCS: 36415; 71045; 74176; 80053; 82550; 84484; 85025; 93005; 99284; A9270-GY

== ENCOUNTER 2020-06-04 04:00 | Emergency (ER) | payer OTHER ==
[2020-06-04] MEDS ORDERED: MORPHINE SULFATE 4 MG INJ IV ONE (04:09)
[2020-06-04] MEDS ORDERED: Zofran 4 MG/2 ML VIAL IV ONE (04:09)
[2020-06-04] MEDS ORDERED: Nitrostat 0.4 MG (ED) SL ONE (04:09)
[2020-06-04] MEDS ORDERED: BABY ASPIRIN 81 MG CHEW PO ONE (04:09)
--- NOTE | 2020-06-04 04:09 | ERPHSYRPT ---
<MOSHE JSASO - Last Filed: 06/04/20 06:58> - History of Present Illness Time Seen by Provider: 06/04/20 04:00 Historian: patient, family Exam Limitations: no limitations Physician History: This is an obese 59-year-old white male with a history of diabetes, hypertension, hypercholesterolemia, anxiety issues, COPD and asthma who was layi ng down trying to go to sleep approximately 3 to 4 hours prior to this evaluation in the emergency department when he began having left anterior chest pain without radiation. The pain is sharp and stabbing. He has had no associated shortness of breath or cough with it. He has no abdominal pain. He has no nausea vomiting or diarrhea. Patient states he has no known history of myocardial infarction or coronary artery disease. Timing/Duration: today Activities at Onset: sleep Quality: sharpness, stabbing Location: other (Left anterior chest) Chest Pain Radiation: no radiation Severity of Pain-Max: moderate Severity of Pain-Current: moderate Modifying Factors: Improves With: nothing Prior Chest Pain/Cardiac Workup: no prior chest pain, no prior cardiac workup Nitro Today/Relief: no nitro taken today Aspirin Treatment Today: no aspirin today Allergies/Adverse Reactions: No Known Drug Allergies Allergy (Verified 06/04/20 04:02) Home Medications: Albuterol 2.5 mg/3 ml Neb [Proventil 2.5 mg/3 ml Neb] 1 neb IH QID PRN PRN 11/08/15 [History] Divalproex Sodium [Depakote ER] 500 mg PO DAILY 12/14/16 [History] Amitriptyline HCl 25 mg [Elavil 25 mg] 150 mg PO HS 09/11/17 [History] Clonidine HCl 0.1 mg [Catapres 0.1 MG] 1 tab PO BID 09/11/17 [History] Alprazolam 0.5 mg [xanAX 0.5 MG] 1 tab PO TID 02/14/20 [History] Amlodipine Besylate 5 mg [Norvasc 5 mg] 10 mg PO DAILY 02/14/20 [History] Furosemide 20 mg [Lasix 20 mg] 1 tab PO DAILY 02/14/20 [History] Gabapentin 2 cap PO TID 02/14/20 [History] Metformin HCl 1 tab PO TID 02/14/20 [History] Potassium Chloride 10 Meq Tab* [Klor Con 10 MEQ] 1 tab PO DAILY 02/14/20 [History] Pravastatin Sodium 1 tab PO DAILY 02/14/20 [History] Omeprazole 20 mg PO DAILY 06/04/20 [History] SUMAtriptan succinate [Imitrex 50 mg] 50 mg PO UD PRN 06/04/20 [History] Hx Tetanus, Diphtheria Vaccination/Date Given: No Hx Influenza Vaccination/Date Given: Yes Hx Pneumococcal Vaccination/Date Given: No Travel Risk - International Travel Have you traveled outside of the country in past 3 weeks: No - Coronavirus Screening Are you exhibiting any of the following symptoms?: No Close contact with a COVID-19 positive Pt in past 14-21 Days: No - Review of Systems Constitutional: No Symptoms Eyes: No Symptoms Ears, Nose, & Throat: No Symptoms Respiratory: No Symptoms Cardiac: Chest Pain Abdominal/Gastrointestinal: No Symptoms Genitourinary Symptoms: No Symptoms Musculoskeletal: No Symptoms Skin: No Symptoms Neurological: No Symptoms Psychological: No Symptoms Endocrine: No Symptoms Hematologic/Lymphatic: No Symptoms Immunological/Allergic: No Symptoms All Other Systems: Reviewed and Negative - Past Medical History Pertinent Past Medical History: Yes Neurological History: Migraines ENT History: No Pertinent History Cardiac History: Hypertension Respiratory History: Asthma, COPD, Sleep Apnea Endocrine Medical History: Other Musculoskeletal History: Osteoarthritis GI Medical History: No Pertinent History History: No Pertinent History Psycho-Social History: Anxiety, Depression, Panic Disorder, Other Male Reproductive Disorders: No Pertinent History Other Medical History: degenerative OA, Pancreatitis - Past Surgical History Past Surgical History: Yes Neuro Surgical History: No Pertinent History Cardiac: No Pertinent History Respiratory: No Pertinent History Gastrointestinal: No Pertinent History Genitourinary: No Pertinent History Musculoskeletal: Other Male Surgical History: No Pertinent History Other Surgical History: cyst to tailbone. rt shoulder 09/01/15 - Social History Smoking Status: Never smoker Exposure to second hand smoke: Yes Drug Use: marijuana Patient Lives Alone: No - Physical Exam General Appearance: mild distress, alert, anxiety, obese Eye Exam: PERRL/EOMI, eyes nml inspection Ears, Nose, Throat Exam: normal ENT inspection, moist mucous membranes Neck Exam: normal inspection, non-tender, supple, full range of motion Respiratory Exam: normal breath sounds, chest tenderness, lungs clear, airway intact, No respiratory distress Cardiovascular Exam: regular rate/rhythm, normal heart sounds, normal peripheral pulses Gastrointestinal/Abdomen Exam: soft, normal bowel sounds, No tenderness Rectal Exam: not done Back Exam: normal inspection, normal range of motion, No CVA tenderness, No vertebral tenderness Extremity Exam: normal inspection, normal range of motion, pelvis stable Neurologic Exam: alert, oriented x 3, cooperative, director of land II-XII nml as tested, normal mood/affect, nml cerebellar function, nml station & gait, sensation nml Skin Exam: normal color, warm, dry Lymphatic Exam: No adenopathy SpO2 Interpretation: normal O2 Delivery: Room Air - Course Nursing assessment & vital signs reviewed: Yes EKG Interpreted by Me: RATE (102), Sinus Tach, NORMAL AXIS, NORMAL INTERVALS, NORMAL QRS, Other (No change from comparison EKG dated 02/14/2020 other than there is slight sinus tachycardia today versus a normal sinus rhythm/rate on 02/14/2020 EKG) - Progress Progress: improved, re-examined Air Movement: good Progress Note: 06/04/20 06:42 Chest x-ray shows no acute cardiopulmonary process. Clinically, the patient is still having some chest pain with deep inspiration. We will proceed with the CAT scan of the chest with contrast. 06/04/20 06:[address] Hugo who is coming on at shift change. I reviewed the jey ent history, condition, EKG findings, x-ray results and laboratory results. He accepts the patient in transfer care at shift change. Blood Culture(s) Obtained: No Antibiotics given: No Counseled pt/family regarding: lab results, diagnosis, need for follow-up, rad results - Departure Departure Disposition: Home Clinical Impression: Chest pain Qualifiers: Chest pain type: unspecified Qualified Code(s): R07.9 - Chest pain, unspecified Condition: Stable Critical Care Time: No Referrals: LARRY RESTREPO [Primary Care Provider] - Follow Up with PCP/3 days ALEXANDR WILDER [ACTIVE STAFF] - (in 2 days for reevaluation) Instructions: Angina (DC), Chest Pain (DC) Additional Instructions: Follow-up with your primary care and cardiology for reevaluation of chest pain. Return to ER if again has chest pain, palpitations, shortness of breath etc. <MORRIS HUGO - Last Filed: 06/04/20 15:41> - Nursing Vital Signs Nursing Vital Signs: Initial Vital Signs Temperature 98.1 F 06/04/20 04:04 Pulse Rate 88 06/04/20 04:04 Respiratory Rate 18 06/04/20 04:04 Blood Pressure 161/95 06/04/20 04:04 O2 Sat by Pulse Oximetry 95 06/04/20 04:04 Pain Scale Pain Intensity 0 Ordered Tests: Active Orders 24 hr Category Date Time Status Assistant Project Manager STAT Care 06/04/20 04:10 Completed EKG-ER Only STAT Care 06/04/20 04:09 Completed IV Insertion STAT Care 06/04/20 04:09 Completed Pulse Oximetry (ED) STAT Care 06/04/20 04:09 Completed CHEST 1 VIEW (PORTABLE) Stat Exams 06/04/20 04:09 Taken CHEST WITH CONTRAST [CT] Stat Exams 06/04/20 06:41 Taken CBC W DIFF Stat Lab 06/04/20 04:20 Completed CMP Stat Lab 06/04/20 04:20 Completed D-DIMER QUANTITATIVE Stat Lab 06/04/20 04:20 Completed NT PRO BNP Stat Lab 06/04/20 04:20 Completed PROTIME WITH INR Stat Lab 06/04/20 04:20 Completed TROPONIN Q3H Lab 06/04/20 04:20 Completed TROPONIN Q3H Lab 06/04/20 07:43 Completed Medication Summary Discontinued Medications Generic Name Dose Route Start Last Admin Trade Name Freq PRN Reason Stop Dose Admin Aspirin 324 mg 06/04/20 04:09 06/04/20 04:17 Baby Aspirin 81 Mg Chew PO 06/04/20 04:10 324 mg STAT ONE Administration Sodium Chloride 500 mls @ 500 mls/hr 06/04/20 06:41 06/04/20 07:54 Sodium Chloride 0.9% 500 Ml IV 06/04/20 07:40 Infused .Q1H ONE Infusion Sodium Chloride Confirm 06/04/20 06:47 Sodium Chloride 0.9% 500 Ml Administered 06/04/20 06:48 Dose 500 mls @ ud IV .STK-MED ONE Morphine Sulfate 4 mg 06/04/20 04:09 06/04/20 04:24 Morphine Sulfate 4 Mg Inj IV 06/04/20 04:10 4 mg STAT ONE Administration Morphine Sulfate Confirm 06/04/20 04:21 Morphine Sulfate 4 Mg Inj Administered 06/04/20 04:22 Dose 4 mg .ROUTE .STK-MED ONE Nitroglycerin 0.4 mg 06/04/20 04:09 06/04/20 04:17 Nitrostat 0.4 Mg (Ed) SL 06/04/20 04:10 0.4 mg STAT ONE Administration Ondansetron HCl 4 mg 06/04/20 04:09 06/04/20 04:24 Zofran 4 Mg/2 Ml Vial IV 06/04/20 04:10 4 mg STAT ONE Administration Ondansetron HCl Confirm 06/04/20 04:21 Zofran 4 Mg/2 Ml Vial Administered 06/04/20 04:22 Dose 4 mg .ROUTE .STK-MED ONE Lab/Rad Data: Laboratory Result Diagrams 06/04/20 04:20 06/04/20 04:20 Laboratory Results 06/04/20 06/04/20 06/04/20 Range/Units 07:43 04:20 04:20 WBC (4.0-10.5) K/mm3 RBC (4.1-5.6) M/mm3 Hgb (12.5-18.0) gm/dl Hct (42-50) % MCV (78-100) fl MCH (26-32) pg MCHC (32-36) g/dl RDW (11.5-14.0) % Plt Count (150-450) K/mm3 MPV (7.5-11.0) fl Gran % (36.0-66.0) % Eos # (Auto) (0-0.5) Absolute Lymphs (auto) (1.0-4.6) Absolute Monos (auto) (0.0-1.3) Lymphocytes % (24.0-44.0) % Monocytes % (0.0-12.0) % Eosinophils % (0.00-5.0) % Basophils % (0.0-0.4) % Absolute Granulocytes (1.4-6.9) Basophils # (0-0.4) PT 10.7 (8.83-12.87) SECONDS INR 0.95 (0.8-3.0) D-Dimer 607 H* (215-500) ng/mL Sodium (137-145) mmol/L Potassium (3.5-5.1) mmol/L Chloride (98-107) mmol/L Carbon Dioxide (22-30) mmol/L Anion Gap (5-15) MEQ/L BUN (9-20) mg/dL Creatinine (0.66-1.25) mg/dL Estimated GFR ML/MIN Glucose (74-106) mg/dL Calcium (8.4-10.2) mg/dL Total Bilirubin (0.2-1.3) mg/dL AST (17-59) U/L ALT (0-50) U/L Alkaline Phosphatase (38-126) U/L Troponin I < 0.012 < 0.012 (0.000-0.034) ng/mL NT-Pro-B Natriuret Pep (0-900) pg/mL Serum Total Protein (6.3-8.2) g/dL Albumin (3.5-5.0) g/dL 06/04/20 06/04/20 Range/Units 04:20 04:20 WBC 7.4 (4.0-10.5) K/mm3 RBC 3.95 L (4.1-5.6) M/mm3 Hgb 12.4 L (12.5-18.0) gm/dl Hct 38.0 L (42-50) % MCV 96.2 (78-100) fl MCH 31.4 (26-32) pg MCHC 32.6 (32-36) g/dl RDW 14.9 H (11.5-14.0) % Plt Count 194 (150-450) K/mm3 MPV 9.5 (7.5-11.0) fl Gran % 58.1 (36.0-66.0) % Eos # (Auto) 0.12 (0-0.5) Absolute Lymphs (auto) 2.38 (1.0-4.6) Absolute Monos (auto) 0.57 (0.0-1.3) Lymphocytes % 32.3 (24.0-44.0) % Monocytes % 7.7 (0.0-12.0) % Eosinophils % 1.6 (0.00-5.0) % Basophils % 0.3 (0.0-0.4) % Absolute Granulocytes 4.28 (1.4-6.9) Basophils # 0.02 (0-0.4) PT (8.83-12.87) SECONDS INR (0.8-3.0) D-Dimer (215-500) ng/mL Sodium 136 L (137-145) mmol/L Potassium 3.9 (3.5-5.1) mmol/L Chloride 99 (98-107) mmol/L Carbon Dioxide 27 (22-30) mmol/L Anion Gap 13.7 (5-15) MEQ/L BUN 9 (9-20) mg/dL Creatinine 0.76 (0.66-1.25) mg/dL Estimated GFR > 60.0 ML/MIN Glucose 183 H (74-106) mg/dL Calcium 9.0 (8.4-10.2) mg/dL Total Bilirubin 0.50 (0.2-1.3) mg/dL AST 25 (17-59) U/L ALT 14 (0-50) U/L Alkaline Phosphatase 48 (38-126) U/L Troponin I (0.000-0.034) ng/mL NT-Pro-B Natriuret Pep 128 (0-900) pg/mL Serum Total Protein 7.0 (6.3-8.2) g/dL Albumin 4.1 (3.5-5.0) g/dL - Progress Progress Note: 06/04/20 08:42 Patient is checked out to me at shift change by Dr. Jasso with pending second troponin and CTA chest to rule out PE. Plan was to discharge patient if work-up is negative. Patient presented with left-sided chest pain which improved with symptomatic treatment in the ER. Unremarkable work-up grossly. Patient does have multiple risk factors for heart disease, although she has negative work-up but still have a risk and recommended observation admission and further testing but patient does not want to stay but states "I believe I pulled my muscle and would be fine". There has some element of reproducibility as well with lifting the head causing pain in the left chest. I would refer him outpatient with cardiology for reevaluation. Discussed signs symptoms of worsening needing return to ER which he seems understanding. Stable for discharge at this point. Counseled pt/family regarding: lab results, diagnosis, need for follow-up, rad results - Departure Departure Disposition: Home
[2020-06-04] MEDS ORDERED: MORPHINE SULFATE 4 MG INJ ONE (04:21)
[2020-06-04] MEDS ORDERED: Zofran 4 MG/2 ML VIAL ONE (04:21)
[2020-06-04 04:43] LABS: Absolute Neutrophil Ct (ANC) 4.28 (1.4-6.9); BASOPHIL % 0.3 % (0.0-0.4); Basophil (Absolute #) 0.02 (0-0.4); Eosinophil % 1.6 % (0.00-5.0); Eosinophil (Absolute #) 0.12 (0-0.5); Hemoglobin 12.4 gm/dl (12.5-18.0); Lymphocyte (Absolute #) 2.38 (1.0-4.6); Lymphocytes % 32.3 % (24.0-44.0); Mean Cell Volume 96.2 fl (78-100); Mean Corpuscular Hemoglobin 31.4 pg (26-32); Mean Corpuscular Hgb Concent. 32.6 g/dl (32-36); Mean Platelet Volume 9.5 fl (7.5-11.0); Monocyte (Absolute #) 0.57 (0.0-1.3); Monocytes % 7.7 % (0.0-12.0); Neutrophil % 58.1 % (36.0-66.0); Platelet Count 194 K/mm3 (150-450); Red Blood Count 3.95 M/mm3 (4.1-5.6); Red Cell Distribution Width 14.9 % (11.5-14.0); White Blood Count 7.4 K/mm3 (4.0-10.5)
[2020-06-04 05:01] LABS: INR 0.95 (0.8-3.0); PROTIME 10.7 SECONDS (8.83-12.87)
[2020-06-04 05:05] LABS: ALBUMIN 4.1 g/dL (3.5-5.0); ALKALINE PHOSPHATASE 48 U/L (38-126); ANION GAP 13.7 MEQ/L (5-15); BLOOD UREA NITROGEN 9 mg/dL (9-20); CHLORIDE 99 mmol/L (98-107); Carbon Dioxide 27 mmol/L (22-30); Creatinine 1 0.76 mg/dL (0.66-1.25); EST GLOMERULAR FILTRATION RATE > 60.0 ML/MIN; Glucose 183 mg/dL (74-106); NT PRO BNP 128 pg/mL (0-900); Potassium 3.9 mmol/L (3.5-5.1); SGOT/AST 25 U/L (17-59); SGPT/ALT 14 U/L (0-50); SODIUM 136 mmol/L (137-145)
[2020-06-04] MEDS ORDERED: Sodium Chloride 0.9% 500 ML 500 ML IV ONE ×2 (06:41→06:47)
[2020-06-04 07:07] VITALS: PULSE 81; O2SAT 95
[2020-06-04 08:24] VITALS: BP 127/73
--- NOTE | 2020-06-04 17:02 | XRAY ---
Indication: Chest pain. Comparison: February 14, 2020. Portable apical lordotic chest less inflated with new CT proven left base atelectasis and tiny effusion. Remaining heart and lungs unremarkable. Bony thorax intact.
--- NOTE | 2020-06-04 17:05 | XRAY ---
Indication: Chest pain. Elevated d-dimer. Multiple contiguous axial images obtained through the chest using 100 cc Isovue 370 contrast and PE protocol. Comparison: None There is good opacification of the pulmonary arteries including lobar and segmental branches. No pulmonary embolus. Heart is not enlarged. Prominent epicardiac fat. Aorta is normal in course and caliber. Tiny left hilar calcified node. No pathologic mediastinal/hilar lymphadenopathy. Lungs demonstrates bilateral dependent atelectasis with tiny left effusion. No suspicious pulmonary mass or infiltrate. Bony thorax intact with minimal degenerative changes throughout the spine. Limited upper abdomen demonstrate mild fatty liver. Impression: 1. Negative pulmonary embolus. 2. Bilateral dependent atelectasis, tiny nonspecific left effusion, and fatty liver. Comment: Preliminary interpretation was made by [facility]. No critical discrepancy.
== END 2020-06-04 08:58 | disposition home or self-care (01) ==
LOC: ED 04:00
DX: R07.89 Other chest pain (principal); E11.9 Type 2 diabetes mellitus without complications; I10 Essential (primary) hypertension; E78.00 Pure hypercholesterolemia, unspecified; F41.9 Anxiety disorder, unspecified; J44.9 Chronic obstructive pulmonary disease, unspecified; J45.909 Unspecified asthma, uncomplicated; Z79.899 Other long term (current) drug therapy
CPT/HCPCS: 36000; 36415; 71045; 71260; 80053; 83880; 84484; 85025; 85379; 85610; 93005; 93041; 94760; 96374; 96375; 99285; J2270; J2405; A9270-GY

== ENCOUNTER 2021-02-07 15:25 | Observation (INO) | payer OTHER ==
[2021-02-07] MEDS ORDERED: Sodium Chloride 0.9% 1000 ML 1,000 ML IV SCH ×2 (15:45→18:00)
[2021-02-07] MEDS ORDERED: Sodium Chloride 0.9% 1000 ML 1,000 ML ONE (15:51)
[2021-02-07 16:07] LABS: Absolute Neutrophil Ct (ANC) 5.98 (1.4-6.9); BASOPHIL % 0.3 % (0.0-0.4); Basophil (Absolute #) 0.03 (0-0.4); Eosinophil % 1.7 % (0.00-5.0); Eosinophil (Absolute #) 0.17 (0-0.5); Hematocrit 39.8 % (42-50); Hemoglobin 13.4 gm/dl (12.5-18.0); Lymphocytes % 32.3 % (24.0-44.0); Mean Cell Volume 92.3 fl (78-100); Mean Corpuscular Hemoglobin 31.1 pg (26-32); Mean Corpuscular Hgb Concent. 33.7 g/dl (32-36); Mean Platelet Volume 9.3 fl (7.5-11.0); Monocyte (Absolute #) 0.75 (0.0-1.3); Monocytes % 7.3 % (0.0-12.0); Neutrophil % 58.4 % (36.0-66.0); Platelet Count 205 K/mm3 (150-450); Red Blood Count 4.31 M/mm3 (4.1-5.6); Red Cell Distribution Width 13.2 % (11.5-14.0); White Blood Count 10.2 K/mm3 (4.0-10.5)
--- NOTE | 2021-02-07 16:12 | ERPHSYRPT ---
- History of Present Illness Time Seen by Provider: 02/07/21 15:30 Source: patient Exam Limitations: no limitations Patient Subjective Stated Complaint: Pt reports falling 7-8 times last night and neighbor states that he was confused, pt doesn't remember being confused, pt has lump to left eye brow, pain to right arm and pain to left hip Triage Nursing Assessment: Pt brought to the ER via EMS, vitals wnl, rates pain as 7/10 to his left arm and right hip, pt unsure why he fell so many times last night, lisbeth feet edema, pulses normal, skin n/w/d, very talkative and confusing but is answering questions correctly, A&O x3 Physician History: Patient is a 60-year-old male presents to our ED via EMS for evaluation of freq uent falls and confusion. EMS reports that neighbor told them patient was confused yesterday night. Patient states that he has poor memory. He feels like he is having difficulty remembering things. Patient is a poor historian. It is observed that patient has a contusion to his left eye. Patient complaining of pain to his left arm and right hip. No associated chest pain or shortness of breath. No nausea vomiting or diaphoresis. Symptoms are mild to moderate in intensity. No specific worsening improving factors. Timing/Duration: yesterday Severity: moderate Modifying Factors: Improves With: nothing Associated Symptoms: denies symptoms Allergies/Adverse Reactions: No Known Drug Allergies Allergy (Verified 06/04/20 04:02) Home Medications: Divalproex Sodium [Depakote ER] 500 mg PO BID 12/14/16 [History] Clonidine HCl 0.1 mg [Catapres 0.1 MG] 1 tab PO TID 09/11/17 [History] ALPRAZolam 0.5 MG [xanAX 0.5 MG] 2 tab PO BID 02/14/20 [History] Amlodipine Besylate 5 mg [Norvasc 5 mg] 10 mg PO DAILY 02/14/20 [History] Furosemide 20 mg [Lasix 20 mg] 1 tab PO DAILY 02/14/20 [History] Gabapentin 2 cap PO TID 02/14/20 [History] Metformin HCl 2 tab PO BID 02/14/20 [History] Potassium Chloride 10 Meq Tab* [Klor Con 10 MEQ] 1 tab PO DAILY 02/14/20 [History] Pravastatin Sodium 1 tab PO DAILY 02/14/20 [History] Omeprazole 20 mg PO DAILY 06/04/20 [History] SUMAtriptan succinate [Imitrex 50 mg] 50 mg PO UD PRN 06/04/20 [History] Aspirin EC 81 mg [Ecotrin 81 mg] 81 mg PO DAILY 02/07/21 [History] Famotidine 20 mg [Pepcid 20 MG] 20 mg PO DAILY 02/07/21 [History] Propranolol HCl [Propranolol HCl ER] 60 mg PO DAILY 02/07/21 [History] Sertraline HCl 50 mg [Zoloft 50 mg Tablet] 50 mg PO DAILY 02/07/21 [History] Hx Tetanus, Diphtheria Vaccination/Date Given: No Hx Influenza Vaccination/Date Given: Yes Hx Pneumococcal Vaccination/Date Given: No Travel Risk - International Travel Have you traveled outside of the country in past 3 weeks: No - Coronavirus Screening Are you exhibiting any of the following symptoms?: No Close contact with a COVID-19 positive Pt in past 14-21 Days: No - Vaccine Status Have you recieved a Covid-19 vaccination: Yes Product Technology Scientist: Moderna - Vaccination Dates Date of 2cond Vaccination (if applicable): December 24, 2020 - Review of Systems Constitutional: No Symptoms, No Fever, No Chills Eyes: No Symptoms Ears, Nose, & Throat: No Symptoms Respiratory: No Symptoms, No Cough, No Dyspnea Cardiac: No Symptoms, No Chest Pain, No Edema, No Syncope Abdominal/Gastrointestinal: No Symptoms, No Abdominal Pain, No Nausea, No Vomiting, No Diarrhea Genitourinary Symptoms: No Symptoms, No Dysuria Musculoskeletal: No Symptoms, No Back Pain, No Neck Pain Skin: No Symptoms, No Rash Neurological: No Symptoms, No Dizziness, No Focal Weakness, No Sensory Changes Psychological: No Symptoms Endocrine: No Symptoms Hematologic/Lymphatic: No Symptoms Immunological/Allergic: No Symptoms All Other Systems: Reviewed and Negative - Past Medical History Pertinent Past Medical History: Yes Neurological History: Migraines ENT History: No Pertinent History Cardiac History: Hypertension Respiratory History: Asthma, COPD, Sleep Apnea Endocrine Medical History: Other Musculoskeletal History: Osteoarthritis GI Medical History: No Pertinent History History: No Pertinent History Psycho-Social History: Anxiety, Depression, Panic Disorder, Other Male Reproductive Disorders: No Pertinent History Other Medical History: degenerative OA, Pancreatitis - Past Surgical History Past Surgical History: Yes Neuro Surgical History: No Pertinent History Cardiac: No Pertinent History Respiratory: No Pertinent History Gastrointestinal: No Pertinent History Genitourinary: No Pertinent History Musculoskeletal: Other Male Surgical History: No Pertinent History Other Surgical History: cyst to tailbone. rt shoulder 09/01/15 - Social History Smoking Status: Never smoker Exposure to second hand smoke: Yes Drug Use: marijuana Patient Lives Alone: Yes - Nursing Vital Signs Nursing Vital Signs: Initial Vital Signs Temperature 98.3 F 02/07/21 15:26 Pulse Rate 64 02/07/21 15:26 Blood Pressure 108/74 02/07/21 15:26 O2 Sat by Pulse Oximetry 96 02/07/21 15:26 Pain Scale Pain Intensity 0 - Physical Exam General Appearance: no apparent distress, alert Eye Exam: PERRL/EOMI, eyes nml inspection Ears, Nose, Throat Exam: normal ENT inspection, TMs normal, pharynx normal, moist mucous membranes Neck Exam: normal inspection, non-tender, supple, full range of motion Respiratory Exam: normal breath sounds, lungs clear, No respiratory distress Cardiovascular Exam: regular rate/rhythm, normal heart sounds, normal peripheral pulses Gastrointestinal/Abdomen Exam: soft, normal bowel sounds, No tenderness, No mass Back Exam: normal inspection, normal range of motion, No CVA tenderness, No vertebral tenderness Extremity Exam: normal inspection, normal range of motion, pelvis stable Neurologic Exam: alert, oriented x 3, cooperative, normal mood/affect, nml cerebellar function, nml station & gait, sensation nml, No motor deficits Skin Exam: normal color, warm, dry, No rash Lymphatic Exam: No adenopathy SpO2: 95 - Radiology Exams Chest X-ray Interpretation: Teleradiologist Report (Portable chest demonstrates normal heart and lungs. Bony thorax intact.No new acute findings.) Hip X-ray Interpretation: Teleradiologist Report (Right hip x-ray demonstrates mild lumbosacral junction degenerative facet hypertrophy. No other bony articular or soft tissue abnormalities.) Humerus X-ray Interpretation: Teleradiologist Report (2 view left humerus demonstrates mild AC degenerative arthropathy and IV catheter overlying elbow. No other bony articular or soft tissue abnormalities) - CT Exams Abdomen/Pelvis CT Interpretation: Tele-radiologist Report (Fecal debris. New tiny gallbladder sludge/gravel. Diffuse fecal stasis, small duodenal diverticulum, chronic bony spine changes. Otherwise negative CT abdomen pelvis with contrast) Head CT Interpretation: Tele-radiologist Report (Appearing brain parenchyma, ventricles, bony calvarium for patient's age. Visualized paranasal sinuses and mastoid air cells are clear. Normal CT head without contrast exam.) Ordered Tests: Active Orders 24 hr Category Date Time Status Calciner Operator Helper STAT Care 02/07/21 15:45 Active EKG-ER Only STAT Care 02/07/21 15:45 Active IV Insertion STAT Care 02/07/21 15:45 Active Pulse Oximetry (ED) STAT Care 02/07/21 15:45 Active ABDOMEN AND PELVIS W CONTRAST [CT] Stat Exams 02/07/21 15:47 Completed CHEST 1 VIEW (PORTABLE) Stat Exams 02/07/21 15:45 Completed HEAD WITHOUT CONTRAST [CT] Stat Exams 02/07/21 15:47 Completed HIP UNI (2V) INCL PEL IF DONE Stat Exams 02/07/21 15:49 Completed HUMERUS Stat Exams 02/07/21 15:48 Completed CBC W DIFF Stat Lab 02/07/21 16:02 Completed CMP Stat Lab 02/07/21 16:02 Completed CULTURE,URINE Stat Lab 02/07/21 17:21 Ordered Folate (Folic Acid) Stat Lab 02/07/21 Ordered MAGNESIUM Stat Lab 02/07/21 16:02 Completed TROPONIN Q3H Lab 02/07/21 16:02 Completed TROPONIN Q3H Lab 02/07/21 18:03 Completed TROPONIN Q3H Lab 02/07/21 21:45 Ordered TROPONIN Q3H Lab 02/08/21 00:45 Ordered TROPONIN Q3H Lab 02/08/21 03:45 Ordered TSH [TSH, 3RD Generation] Stat Lab 02/07/21 19:31 Ordered UA W/RFX UR CULTURE Stat Lab 02/07/21 17:21 Completed Urine Triage Profile Stat Lab 02/07/21 17:21 Completed Vitamin B12 Stat Lab 02/07/21 Ordered Transfer Order Routine Transfer 02/07/21 Ordered Medication Summary Generic Name Dose Route Start Last Admin Trade Name Freq PRN Reason Stop Dose Admin Sodium Chloride 1,000 mls @ 50 mls/hr 02/07/21 15:45 02/07/21 15:53 Sodium Chloride 0.9% 1000 Ml IV 03/09/21 15:44 50 mls/hr .Q20H KASSIDY Administration Sodium Chloride 1,000 mls @ 50 mls/hr 02/07/21 18:00 Sodium Chloride 0.9% 1000 Ml IV 03/09/21 17:59 .Q20H KASSIDY Discontinued Medications Generic Name Dose Route Start Last Admin Trade Name Raven PRN Reason Stop Dose Admin Aspirin 324 mg 02/07/21 17:53 02/07/21 17:59 Baby Aspirin 81 Mg Chew PO 02/07/21 17:54 324 mg STAT ONE Administration Lab/Rad Data: Laboratory Result Diagrams 02/07/21 16:02 02/07/21 16:02 Laboratory Results 02/07/21 02/07/21 02/07/21 Range/Units 18:07 18:03 17:21 WBC (4.0-10.5) K/mm3 RBC (4.1-5.6) M/mm3 Hgb (12.5-18.0) gm/dl Hct (42-50) % MCV (78-100) fl MCH (26-32) pg MCHC (32-36) g/dl RDW (11.5-14.0) % Plt Count (150-450) K/mm3 MPV (7.5-11.0) fl Gran % (36.0-66.0) % Eos # (Auto) (0-0.5) Absolute Lymphs (auto) (1.0-4.6) Absolute Monos (auto) (0.0-1.3) Lymphocytes % (24.0-44.0) % Monocytes % (0.0-12.0) % Eosinophils % (0.00-5.0) % Basophils % (0.0-0.4) % Absolute Granulocytes (1.4-6.9) Basophils # (0-0.4) Sodium (137-145) mmol/L Potassium (3.5-5.1) mmol/L Chloride (98-107) mmol/L Carbon Dioxide (22-30) mmol/L Anion Gap (5-15) MEQ/L BUN (9-20) mg/dL Creatinine (0.66-1.25) mg/dL Estimated GFR ML/MIN Glucose (74-106) mg/dL Calcium (8.4-10.2) mg/dL Magnesium (1.6-2.3) mg/dL Total Bilirubin (0.2-1.3) mg/dL AST (17-59) U/L ALT (0-50) U/L Alkaline Phosphatase (38-126) U/L Troponin I < 0.012 (0.000-0.034) ng/mL Serum Total Protein (6.3-8.2) g/dL Albumin (3.5-5.0) g/dL Urine Color (YELLOW) Urine Appearance (CLEAR) Urine pH (5-6) Ur Specific [place] (1.005-1.025) Urine Protein (Negative) Urine Ketones (NEGATIVE) Urine Blood (0-5) Dean/ul Urine Nitrite (NEGATIVE) Urine Bilirubin (NEGATIVE) Urine Urobilinogen (0-1) mg/dL Ur Leukocyte Esterase (NEGATIVE) Urine WBC (Auto) (0-5) /HPF U Hyaline Cast (Auto) (0-2) /LPF Urine Mucus (Auto) (NEGATIVE) /HPF Urine Culture Reflexed (NO) Urine Glucose (NEGATIVE) mg/dL Urine Opiates Level NEGATIVE (NEGATIVE) Ur Methadone NEGATIVE (NEGATIVE) Urine Barbiturates NEGATIVE (NEGATIVE) Valproic Acid (50-100) ug/mL Ur Phencyclidine (PCP) NEGATIVE (NEGATIVE) Urine Amphetamine NEGATIVE (NEGATIVE) U Benzodiazepine Level POSITIVE (NEGATIVE) Urine Cocaine NEGATIVE (NEGATIVE) Urine Marijuana (THC) POSITIVE (NEGATIVE) SARS-CoV-2 (PCR) NEGATIVE (NEGATIVE) 02/07/21 02/07/21 02/07/21 Range/Units 17:21 16:02 16:02 WBC (4.0-10.5) K/mm3 RBC (4.1-5.6) M/mm3 Hgb (12.5-18.0) gm/dl Hct (42-50) % MCV (78-100) fl MCH (26-32) pg MCHC (32-36) g/dl RDW (11.5-14.0) % Plt Count (150-450) K/mm3 MPV (7.5-11.0) fl Gran % (36.0-66.0) % Eos # (Auto) (0-0.5) Absolute Lymphs (auto) (1.0-4.6) Absolute Monos (auto) (0.0-1.3) Lymphocytes % (24.0-44.0) % Monocytes % (0.0-12.0) % Eosinophils % (0.00-5.0) % Basophils % (0.0-0.4) % Absolute Granulocytes (1.4-6.9) Basophils # (0-0.4) Sodium (137-145) mmol/L Potassium (3.5-5.1) mmol/L Chloride (98-107) mmol/L Carbon Dioxide (22-30) mmol/L Anion Gap (5-15) MEQ/L BUN (9-20) mg/dL Creatinine (0.66-1.25) mg/dL Estimated GFR ML/MIN Glucose (74-106) mg/dL Calcium (8.4-10.2) mg/dL Magnesium (1.6-2.3) mg/dL Total Bilirubin (0.2-1.3) mg/dL AST (17-59) U/L ALT (0-50) U/L Alkaline Phosphatase (38-126) U/L Troponin I < 0.012 (0.000-0.034) ng/mL Serum Total Protein (6.3-8.2) g/dL Albumin (3.5-5.0) g/dL Urine Color YELLOW (YELLOW) Urine Appearance CLEAR (CLEAR) Urine pH 6.0 (5-6) Ur Specific [place] 1.032 (1.005-1.025) Urine Protein NEGATIVE (Negative) Urine Ketones NEGATIVE (NEGATIVE) Urine Blood NEGATIVE (0-5) Dean/ul Urine Nitrite NEGATIVE (NEGATIVE) Urine Bilirubin NEGATIVE (NEGATIVE) Urine Urobilinogen NEGATIVE (0-1) mg/dL Ur Leukocyte Esterase NEGATIVE (NEGATIVE) Urine WBC (Auto) NONE (0-5) /HPF U Hyaline Cast (Auto) 6-10 (0-2) /LPF Urine Mucus (Auto) SLIGHT (NEGATIVE) /HPF Urine Culture Reflexed NO (NO) Urine Glucose NEGATIVE (NEGATIVE) mg/dL Urine Opiates Level (NEGATIVE) Ur Methadone (NEGATIVE) Urine Barbiturates (NEGATIVE) Valproic Acid 38.8 L (50-100) ug/mL Ur Phencyclidine (PCP) (NEGATIVE) Urine Amphetamine (NEGATIVE) U Benzodiazepine Level (NEGATIVE) Urine Cocaine (NEGATIVE) Urine Marijuana (THC) (NEGATIVE) SARS-CoV-2 (PCR) (NEGATIVE) 02/07/21 02/07/21 Range/Units 16:02 16:02 WBC 10.2 (4.0-10.5) K/mm3 RBC 4.31 (4.1-5.6) M/mm3 Hgb 13.4 (12.5-18.0) gm/dl Hct 39.8 L (42-50) % MCV 92.3 (78-100) fl MCH 31.1 (26-32) pg MCHC 33.7 (32-36) g/dl RDW 13.2 (11.5-14.0) % Plt Count 205 (150-450) K/mm3 MPV 9.3 (7.5-11.0) fl Gran % 58.4 (36.0-66.0) % Eos # (Auto) 0.17 (0-0.5) Absolute Lymphs (auto) 3.30 (1.0-4.6) Absolute Monos (auto) 0.75 (0.0-1.3) Lymphocytes % 32.3 (24.0-44.0) % Monocytes % 7.3 (0.0-12.0) % Eosinophils % 1.7 (0.00-5.0) % Basophils % 0.3 (0.0-0.4) % Absolute Granulocytes 5.98 (1.4-6.9) Basophils # 0.03 (0-0.4) Sodium 136 L (137-145) mmol/L Potassium 4.3 (3.5-5.1) mmol/L Chloride 100 (98-107) mmol/L Carbon Dioxide 25 (22-30) mmol/L Anion Gap 14.9 (5-15) MEQ/L BUN 15 (9-20) mg/dL Creatinine 1.02 (0.66-1.25) mg/dL Estimated GFR > 60.0 ML/MIN Glucose 107 H (74-106) mg/dL Calcium 8.9 (8.4-10.2) mg/dL Magnesium 2.2 (1.6-2.3) mg/dL Total Bilirubin 0.40 (0.2-1.3) mg/dL AST 22 (17-59) U/L ALT 18 (0-50) U/L Alkaline Phosphatase 52 (38-126) U/L Troponin I (0.000-0.034) ng/mL Serum Total Protein 7.0 (6.3-8.2) g/dL Albumin 4.2 (3.5-5.0) g/dL Urine Color (YELLOW) Urine Appearance (CLEAR) Urine pH (5-6) Ur Specific [place] (1.005-1.025) Urine Protein (Negative) Urine Ketones (NEGATIVE) Urine Blood (0-5) Dean/ul Urine Nitrite (NEGATIVE) Urine Bilirubin (NEGATIVE) Urine Urobilinogen (0-1) mg/dL Ur Leukocyte Esterase (NEGATIVE) Urine WBC (Auto) (0-5) /HPF U Hyaline Cast (Auto) (0-2) /LPF Urine Mucus (Auto) (NEGATIVE) /HPF Urine Culture Reflexed (NO) Urine Glucose (NEGATIVE) mg/dL Urine Opiates Level (NEGATIVE) Ur Methadone (NEGATIVE) Urine Barbiturates (NEGATIVE) Valproic Acid (50-100) ug/mL Ur Phencyclidine (PCP) (NEGATIVE) Urine Amphetamine (NEGATIVE) U Benzodiazepine Level (NEGATIVE) Urine Cocaine (NEGATIVE) Urine Marijuana (THC) (NEGATIVE) SARS-CoV-2 (PCR) (NEGATIVE) - Progress Progress: improved Progress Note: Patient reassessed. Repeat neuro exam within normal limits. Case discussed with Dr. Lopez. We will admit for further evaluation and treatment. Telemetry neuro consulted. She advised folate level B12 level B1 level TSH. Patient drinks 6-8 beers per day. We will order banana bag for the floor. Pat ient is Covid negative. Troponin negative x2. Plan of care discussed with patient. He agrees to admission at [facility] for further evaluation and treatment. 02/07/21 19:37 Discussed with : Rich Will see patient in: hospital (observation) Counseled pt/family regarding: lab results, diagnosis, rad results - Departure Departure Disposition: Observation Clinical Impression: Fall, Confusion, Generalized weakness Condition: Stable Critical Care Time: No Referrals: LARRY RESTREPO [Primary Care Provider] - Additional Instructions: Discharge/Care Plan JANE BRASWELL was seen on 02/07/21 in the Emergency Room. The patient was counseled regarding Diagnosis,Lab results, Imaging studies, need for follow up and when to return to the Emergency Room. Prescriptions given: Discharge Note I have spoken with the patient and/or caregivers. I have explained the patient's condition, diagnosis and treatment plan based on the information available to me at this time. I have answered the patient's and/or caregiver's questions and addressed any concerns. The patient and/or caregivers have as good understanding of the patient's diagnosis, condition and treatment plan as can be expected at this point. The vital signs have been stable. The patient's condition is stable and appropriate for discharge from the emergency department. The patient will pursue further outpatient evaluation with the primary care physician or other designated or consulting physician as outlined in the discharge instructions. The patient and/or caregivers are agreeable to this plan of care and follow-up instructions have been explained in detail. The patient and/or caregivers have received these instruction. The patient/and or caregivers are aware that any significant change in condition or worsening of symptoms should prompt an immediate return to this or the closest emergency department or call 911.
[2021-02-07 16:20] LABS: ALBUMIN 4.2 g/dL (3.5-5.0); ALKALINE PHOSPHATASE 52 U/L (38-126); ANION GAP 14.9 MEQ/L (5-15); BLOOD UREA NITROGEN 15 mg/dL (9-20); CHLORIDE 100 mmol/L (98-107); Calcium 8.9 mg/dL (8.4-10.2); Carbon Dioxide 25 mmol/L (22-30); Creatinine 1 1.02 mg/dL (0.66-1.25); EST GLOMERULAR FILTRATION RATE > 60.0 ML/MIN; Glucose 107 mg/dL (74-106); MAGNESIUM 2.2 mg/dL (1.6-2.3); Potassium 4.3 mmol/L (3.5-5.1); SGOT/AST 22 U/L (17-59); SGPT/ALT 18 U/L (0-50); SODIUM 136 mmol/L (137-145)
--- NOTE | 2021-02-07 16:42 | XRAY ---
Indication: Frontal head injury following fall. Multiple contiguous axial images obtained of the head without contrast. Comparison: None Normal appearing brain parenchyma, ventricles, and bony calvarium for patient's age. Visualized paranasal sinuses and mastoid air cells are clear. Impression: Normal CT head without contrast exam.
--- NOTE | 2021-02-07 16:44 | XRAY ---
Indication: Status post fall. Comparison: August 03, 2020. Portable chest again demonstrates normal heart and lungs. Bony thorax intact. No new/acute findings.
--- NOTE | 2021-02-07 16:44 | XRAY ---
Indication: Pain following fall. Comparison: None AP pelvis and 2 view right hip demonstrates mild lumbosacral junction degenerative facet hypertrophy. No other bony, articular, or soft tissue abnormalities.
--- NOTE | 2021-02-07 16:46 | XRAY ---
Indication: Pain following fall. Comparison: None 2 view left humerus demonstrate mild AC degenerative arthropathy and IV catheter overlying elbow. No other bony, articular, or soft tissue abnormalities.
--- NOTE | 2021-02-07 17:12 | XRAY ---
Indication: Periumbilical pain. Status post fall. Multiple contiguous axial images obtained through the abdomen and pelvis using 80 cc Isovue-370 370 contrast. Comparison: February 14, 2020. Lung bases again demonstrates dependent atelectasis without infiltrate or effusion. Stable tiny benign peripheral left lower lobe noncalcified nodule. Heart is not enlarged. Noncontrasted stomach and bowel loops are nonobstructed. Stable small descending duodenal diverticulum. Normal appendix. There is again mild diffuse scattered colonic fecal debris throughout. No free fluid/air. New tiny gallbladder sludge/gravel in the dependent portion. Remaining liver, gallbladder, pancreas, spleen, adrenal glands, kidneys, ureters, and bladder are unremarkable. Stable minimal aortoiliac calcifications. No AAA or pathological retroperitoneal lymphadenopathy. Osseous structures intact again with mild/moderate degenerative changes throughout the thoracolumbar spine. No ventral or inguinal hernias. Impression: 1. New tiny gallbladder sludge/gravel. 2. Again diffuse fecal stasis, small duodenal diverticulum, and chronic bony findings. 3. Remaining CT abdomen/pelvis with contrast exam is negative.
[2021-02-07 17:49] LABS: Appearance CLEAR (CLEAR); Bilirubin NEGATIVE (NEGATIVE); Blood NEGATIVE Ery/ul (0-5); Glucose NEGATIVE (NEGATIVE); Ketones NEGATIVE (NEGATIVE); Leukocyte Esterase NEGATIVE (NEGATIVE); Mucus SLIGHT /HPF (NEGATIVE); Nitrite NEGATIVE (NEGATIVE); Protein,Urine Dip NEGATIVE (Negative); Specific Gravity 1.032 (1.005-1.025); Urobilinogen NEGATIVE mg/dL (0-1)
[2021-02-07] MEDS ORDERED: BABY ASPIRIN 81 MG CHEW PO ONE (17:53)
[2021-02-07 18:03] LABS: Amphetamine,Urine NEGATIVE (NEGATIVE); Barbiturate,Urine NEGATIVE (NEGATIVE); Benzodiazepine,Urine POSITIVE (NEGATIVE); Cocaine,Urine NEGATIVE (NEGATIVE); Methadone,Urine NEGATIVE (NEGATIVE); Opiate,Urine NEGATIVE (NEGATIVE); PCP,Urine NEGATIVE (NEGATIVE); THC,Urine POSITIVE (NEGATIVE)
[2021-02-07] MEDS ORDERED: Zofran 4 MG/2 ML VIAL IV PRN (20:06)
[2021-02-07] MEDS ORDERED: HUMALOG SQ PRN (21:32)
[2021-02-07] MEDS ORDERED: XANAX 1 MG PO PRN (21:36)
[2021-02-07] MEDS: NEURONTIN 300 MG PO SCH (23:05)
[2021-02-07] MEDS: Catapres 0.1 MG PO SCH (23:05)
[2021-02-07] MEDS: HOLD METFORMIN PRODUCTS FOR 48 HOURS MC SCH (23:07)
[2021-02-07] MEDS: Depakote EXTENDED RELEASE 250 MG PO SCH (23:07)
[2021-02-07] MEDS ORDERED: Ventolin Hfa MDI IH PRN (23:10)
[2021-02-07] MEDS: TORAdol 30 mg Injection IV PRN (23:10)
[2021-02-08 04:03] LABS: Absolute Neutrophil Ct (ANC) 2.97 (1.4-6.9); BASOPHIL % 0.3 % (0.0-0.4); Basophil (Absolute #) 0.02 (0-0.4); Eosinophil % 2.7 % (0.00-5.0); Eosinophil (Absolute #) 0.19 (0-0.5); Hematocrit 39.8 % (42-50); Hemoglobin 13.1 gm/dl (12.5-18.0); Lymphocyte (Absolute #) 3.18 (1.0-4.6); Mean Cell Volume 92.8 fl (78-100); Mean Corpuscular Hemoglobin 30.5 pg (26-32); Mean Corpuscular Hgb Concent. 32.9 g/dl (32-36); Mean Platelet Volume 9.5 fl (7.5-11.0); Monocyte (Absolute #) 0.55 (0.0-1.3); Platelet Count 173 K/mm3 (150-450); Red Blood Count 4.29 M/mm3 (4.1-5.6); Red Cell Distribution Width 13.4 % (11.5-14.0); White Blood Count 6.9 K/mm3 (4.0-10.5)
[2021-02-08 05:03] LABS: ALKALINE PHOSPHATASE 52 U/L (38-126); ANION GAP 13.2 MEQ/L (5-15); BLOOD UREA NITROGEN 15 mg/dL (9-20); CHLORIDE 100 mmol/L (98-107); Calcium 8.8 mg/dL (8.4-10.2); Carbon Dioxide 26 mmol/L (22-30); Creatinine 1 0.84 mg/dL (0.66-1.25); EST GLOMERULAR FILTRATION RATE > 60.0 ML/MIN; Glucose 133 mg/dL (74-106); Potassium 3.7 mmol/L (3.5-5.1); SGOT/AST 26 U/L (17-59); SGPT/ALT 16 U/L (0-50); SODIUM 136 mmol/L (137-145); Total Protein 6.9 g/dL (6.3-8.2)
[2021-02-08] MEDS: HOLD METFORMIN PRODUCTS FOR 48 HOURS MC SCH (06:03)
[2021-02-08] MEDS: TORAdol 30 mg Injection IV PRN (08:20)
--- NOTE | 2021-02-08 08:32 | HP ---
CHIEF COMPLAINT: Falling several times. HISTORY OF PRESENT ILLNESS: The patient is a 60 year-old white male patient who is currently [facility] at [facility]. He reports the loss of his son and granddaughter and is coming up on an anniversary and he has been thinking about that a great deal. He also had issues of losing a close friend at the [facility] who was on dialysis and just at 0100 hours in the morning the day of his problems. The patient reports he was standing in the bathroom urinating and when he turned around he got to the point where he was so weak that he fell and hurt his arm. He reports that after that time trying to get up and get back to his bed and he fell another six or seven times. The patient previous to this time had no other issues. He felt good up to the point of time in which he was told about the loss of his friend. PAST MEDICAL/SURGICAL HISTORY: The patient does have a medical history of diabetes mellitus. He has a history of seizure disorder, hyperlipidemia, gastroesophageal reflux disease and depression. He reports he was in counseling for up to six years nine years ago but he has not been in any counseling recently. The patient otherwise lives alone. HOME MEDICATIONS: Depakote 500 mg b.i.d., clonidine 0.1 mg t.i.d. for blood pressure, Xanax 0.5 mg 2 tablets twice a day, amlodipine 5 mg two tablets in the morning, Lasix 20 mg one tablet a day, gabapentin 300 mg two capsules t.i.d., Metformin 500 mg two tablets twice a day, potassium 10 mEq daily, Pravastatin unknown dosage daily, omeprazole 20 mg a day. He takes Imitrex PRN for migraine headaches, aspirin 81 mg a day, famotidine 20 mg a day, propranolol 60 mg a day and sertraline 50 mg daily. ALLERGIES: NKDA. PHYSICAL EXAMINATION: The patient's vital signs on admission showed his temperature to be 98.3F, pulse 64 and blood pressure 108/74. O2 saturation was 96%. HEENT: Normocephalic, atraumatic. Pupils equal round reactive to light. Extraocular movements intact. Oropharynx is slightly dry. The patient did report that he hit his forehead but I see no bruising or swelling around that location. NECK: Supple without lymphadenopathy, thyromegaly or JVD. CHEST: Clear to auscultation. HEART: Regular rate and rhythm. No murmurs, rubs or gallops. ABDOMEN: Soft. No palpable masses. EXTREMITIES: Without cyanosis, clubbing or edema. NEUROLOGIC: The patient is alert and oriented x3. No focal deficits. He appears to be somewhat tearful at times when talking about his loss. LAB DATA AND TESTS: The patient's lab studies are negative for COVID. The valproic acid level was slight subtherapeutic at 38.8. His troponin was less than 0.012. His metabolic panel is essentially normal. Glucose is slightly high at 107. His sodium was slightly low at 136. UA showed specific gravity 1.032 and was otherwise normal in its appearance other than 6-10 hyaline cast. CBC was normal. His urine drug screen was positive for benzodiazepine and THC which he did not tell me about although that he does report that he drinks six to eight beers a day. His folate level was normal at 16.2. TSH was normal at 1.360. B12 was normal at 410. He had multiple x-rays performed. CT scan of the head was essentially negative. All the other x-rays were essentially negative as well including humerus, hip. There was noted some mild lumbosacral junction degenerative facet hypertrophy. Chest x-ray was normal. CT head scan was normal without contrast. CT scan abdomen and pelvis showed tiny gallbladder sludge or gravel, fecal stasis, small duodenal diverticulum otherwise negative. ASSESSMENT: A patient with grief reaction and depression presented to the emergency room for multiple falls and memory loss. The patient appeared to me during my examination to have good memory recall. He does report he has had some short term memory loss however. The patient is obviously depressed and grieving. We will get a [facility] consult. We will get occupational therapy to be sure he is safe to ambulate on his feet. He should be able to return home to follow up with his primary care provider for further medical treatments after his evaluation by OT and [facility].
[2021-02-08] MEDS ORDERED: NON-FORMULARY ITEM (Sumatriptan Succinate [Imitrex 50 Mg] 50 MG) PO PRN (09:52)
[2021-02-08] MEDS ORDERED: ECOTRIN 81 MG PO SCH (10:00)
[2021-02-08] MEDS ORDERED: NORVASC 5 MG PO SCH (10:00)
[2021-02-08] MEDS ORDERED: NON-FORMULARY ITEM (Amlodipine Besylate [Amlodipine Besylate] 10 MG) PO SCH (10:00)
[2021-02-08] MEDS ORDERED: NON-FORMULARY ITEM (Pravastatin Sodium [Pravastatin Sodium] 20 MG) PO SCH (10:00)
[2021-02-08] MEDS ORDERED: ZOLOFT 50 MG TABLET PO SCH (10:00)
[2021-02-08] MEDS ORDERED: NON-FORMULARY ITEM (Omeprazole [Omeprazole] 40 MG) PO SCH (10:00)
[2021-02-08] MEDS ORDERED: PROPRANOLOL HCL 60 MG PO SCH (10:00)
[2021-02-08] MEDS ORDERED: Klor Con 10 MEQ PO SCH (10:00)
[2021-02-08] MEDS ORDERED: NON-FORMULARY ITEM (Propranolol Hcl [Propranolol Hcl Er] 0 MG) PO SCH (10:00)
[2021-02-08] MEDS ORDERED: Pepcid 20 MG PO SCH (10:00)
[2021-02-08] MEDS ORDERED: Protonix 40MG Tablet PO SCH (10:00)
[2021-02-08] MEDS ORDERED: LASIX 20 MG PO SCH (10:00)
[2021-02-08] MEDS ORDERED: MEDICATION INTERVENTION MC SCH (11:00)
[2021-02-08] MEDS: Catapres 0.1 MG PO SCH ×2 (11:18→15:15)
[2021-02-08] MEDS: Depakote EXTENDED RELEASE 250 MG PO SCH (11:20)
[2021-02-08] MEDS: NEURONTIN 300 MG PO SCH ×2 (11:21→15:15)
[2021-02-08 16:06] VITALS: BP 108/61; PULSE 59; O2SAT 96
[2021-02-08] MEDS ORDERED: ZOCOR 20MG PO SCH (22:00)
[2021-02-10] MEDS ORDERED: Glucophage 500 MG PO SCH (08:00)
== END 2021-02-08 16:20 | disposition home or self-care (01) ==
LOC: ED 15:25 → UNDOADMOB 20:00 → MED SURG 20:00
PROVIDERS: ADMIT Family Medicine; ATTEND Family Medicine
DX: F43.21 Adjustment disorder with depressed mood (principal); Z20.828 Contact with and (suspected) exposure to other viral communicable diseases; R29.6 Repeated falls; M79.602 Pain in left arm; M25.551 Pain in right hip; S00.12XA Contusion of left eyelid and periocular area, initial encounter; W19.XXXA Unspecified fall, initial encounter; R41.3 Other amnesia; E11.9 Type 2 diabetes mellitus without complications; R41.0 Disorientation, unspecified; Z79.899 Other long term (current) drug therapy; I10 Essential (primary) hypertension; J44.9 Chronic obstructive pulmonary disease, unspecified; E78.5 Hyperlipidemia, unspecified
CPT/HCPCS: 36000; 36415; 70450; 71045; 73060; 73502; 74177; 80053; 80164; 80307; 81001; 82607; 82746; 82947; 83036; 83735; 84425; 84443; 84484; 85025; 87086; 90791; 93005; 93041; 94760; 96360; 96361; 97161; 99285; Q3014; U0003; J1817; J1885; A9270-GY

== ENCOUNTER 2021-03-01 19:15 | Observation (INO) | payer OTHER ==
[2021-03-01 20:46] LABS: Absolute Neutrophil Ct (ANC) 5.01 (1.4-6.9); BASOPHIL % 0.3 % (0.0-0.4); Basophil (Absolute #) 0.02 (0-0.4); Eosinophil % 1.3 % (0.00-5.0); Hematocrit 39.3 % (42-50); Hemoglobin 13.2 gm/dl (12.5-18.0); Lymphocytes % 22.6 % (24.0-44.0); Mean Cell Volume 93.1 fl (78-100); Mean Corpuscular Hemoglobin 31.3 pg (26-32); Mean Corpuscular Hgb Concent. 33.6 g/dl (32-36); Mean Platelet Volume 9.7 fl (7.5-11.0); Monocyte (Absolute #) 0.69 (0.0-1.3); Monocytes % 9.2 % (0.0-12.0); Neutrophil % 66.6 % (36.0-66.0); Platelet Count 218 K/mm3 (150-450); Red Blood Count 4.22 M/mm3 (4.1-5.6); Red Cell Distribution Width 13.9 % (11.5-14.0); White Blood Count 7.5 K/mm3 (4.0-10.5)
[2021-03-01 20:57] LABS: ALBUMIN 4.4 g/dL (3.5-5.0); ALKALINE PHOSPHATASE 63 U/L (38-126); ANION GAP 17.2 MEQ/L (5-15); BLOOD UREA NITROGEN 13 mg/dL (9-20); CHLORIDE 94 mmol/L (98-107); Calcium 9.3 mg/dL (8.4-10.2); Carbon Dioxide 29 mmol/L (22-30); Creatinine 1 0.82 mg/dL (0.66-1.25); EST GLOMERULAR FILTRATION RATE > 60.0 ML/MIN; ETHYL ALCOHOL < 10 mg/dL (0-10); Glucose 145 mg/dL (74-106); MAGNESIUM 2.2 mg/dL (1.6-2.3); Potassium 4.1 mmol/L (3.5-5.1); SGOT/AST 42 U/L (17-59); SGPT/ALT 26 U/L (0-50); SODIUM 136 mmol/L (137-145); Total Protein 7.5 g/dL (6.3-8.2)
--- NOTE | 2021-03-01 22:19 | ERPHSYRPT ---
- History of Present Illness Time Seen by Provider: 03/01/21 19:45 Source: patient Exam Limitations: no limitations Patient Subjective Stated Complaint: The patient states that he has been falling nearly every single day and losing consciousness. The family states that the patient's neighbors checked on patient and found him on the floor. The patient reportedly got out of the shower and was getting dressed when he slipped and fell. He possibly hit a door knob and now has a bruised right eye. An ambulance was called for the patient yesterday, which the patient apparently refused. The family states that the patient has memory issues that have been worsening. Triage Nursing Assessment: The patient is pleasant, alert and oriented to self, place and time. The patient has a bruised right orbital. Pupils equal and reactive, eyes follow. The patient follows commands, and has equal strength in both upper and lower extremities. The patient states the has a headache and both sides of ribcage are sore. Physician History: Patient is a 60-year-old male presents to our ED for evaluation of recurrent falls and loss of consciousness. Patient lives independently in his home. Family reports that patient has fallen many times. Patient was found on the floor by neighbors today. Patient states he was putting his close on and fell hitting his head on the floor and possibly the doorknob. Allergies/Adverse Reactions: No Known Drug Allergies Allergy (Verified 03/01/21 19:50) Home Medications: Divalproex Sodium [Depakote ER] 500 mg PO BID 12/14/16 [History] Clonidine HCl 0.1 mg [Catapres 0.1 MG] 1 tab PO TID 09/11/17 [History] Furosemide 20 mg [Lasix 20 mg] 20 mg PO DAILY 02/14/20 [History] Gabapentin 600 mg PO TID 02/14/20 [History] Metformin HCl 2 tab PO BID 02/14/20 [History] Potassium Chloride 10 Meq Tab* [Klor Con 10 MEQ] 1 tab PO DAILY 02/14/20 [History] Pravastatin Sodium 20 mg PO DAILY 02/14/20 [History] SUMAtriptan succinate [Imitrex 50 mg] 50 mg PO UD PRN 06/04/20 [History] ALPRAZolam 1 MG [Xanax 1 mg] 1 mg PO BID PRN PRN 02/07/21 [History] AMITRIPTYLINE HCL 50 mg Tab [AMITRIPTYLINE HCL 50 mg Tablet] 150 mg PO QHS 02/07/21 [History] Amlodipine Besylate 10 mg PO DAILY 02/07/21 [History] Aspirin EC 81 mg [Ecotrin 81 mg] 81 mg PO DAILY 02/07/21 [History] Famotidine 20 mg [Pepcid 20 MG] 20 mg PO DAILY 02/07/21 [History] Omeprazole 40 mg PO DAILY 02/07/21 [History] Propranolol HCl [Propranolol HCl ER] 60 mg PO DAILY 02/07/21 [History] Sertraline HCl 50 mg [Zoloft 50 mg Tablet] 50 mg PO DAILY 02/07/21 [History] Hx Tetanus, Diphtheria Vaccination/Date Given: No Hx Influenza Vaccination/Date Given: Yes Hx Pneumococcal Vaccination/Date Given: No Immunizations Up to Date: Yes Travel Risk - International Travel Have you traveled outside of the country in past 3 weeks: No - Coronavirus Screening Are you exhibiting any of the following symptoms?: No Close contact with a COVID-19 positive Pt in past 14-21 Days: No - Vaccine Status Have you recieved a Covid-19 vaccination: Yes 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 - Vaccination Dates Date of 2cond Vaccination (if applicable): 01/02/21 - Review of Systems Constitutional: No Symptoms, No Fever, No Chills Eyes: No Symptoms Ears, Nose, & Throat: No Symptoms Respiratory: No Symptoms, No Cough, No Dyspnea Cardiac: No Symptoms, No Chest Pain, No Edema, No Syncope Abdominal/Gastrointestinal: No Symptoms, No Abdominal Pain, No Nausea, No Vomiting, No Diarrhea Genitourinary Symptoms: No Symptoms, No Dysuria Musculoskeletal: No Symptoms, No Back Pain, No Neck Pain Skin: No Symptoms, No Rash Neurological: No Symptoms, No Dizziness, No Focal Weakness, No Sensory Changes Psychological: No Symptoms Endocrine: No Symptoms Hematologic/Lymphatic: No Symptoms Immunological/Allergic: No Symptoms All Other Systems: Reviewed and Negative - Past Medical History Pertinent Past Medical History: Yes Neurological History: Migraines ENT History: No Pertinent History Cardiac History: High Cholesterol, Hypertension Respiratory History: Asthma, COPD, Sleep Apnea Endocrine Medical History: Other Musculoskeletal History: Osteoarthritis GI Medical History: No Pertinent History History: No Pertinent History Psycho-Social History: Anxiety, Depression, Panic Disorder, Other Male Reproductive Disorders: No Pertinent History Other Medical History: degenerative OA, pancreatitis - Past Surgical History Past Surgical History: Yes Neuro Surgical History: No Pertinent History Cardiac: No Pertinent History Respiratory: No Pertinent History Gastrointestinal: No Pertinent History Genitourinary: No Pertinent History Musculoskeletal: Other Male Surgical History: No Pertinent History Other Surgical History: cyst to tailbone. rt shoulder 09/01/15 - Social History Smoking Status: Never smoker Exposure to second hand smoke: No Drug Use: marijuana Patient Lives Alone: Yes - Nursing Vital Signs Nursing Vital Signs: Initial Vital Signs Temperature 97.7 F 03/01/21 19:32 Pulse Rate 92 H 03/01/21 19:32 Respiratory Rate 16 03/01/21 19:32 Blood Pressure 152/97 03/01/21 19:32 O2 Sat by Pulse Oximetry 98 03/01/21 19:32 Pain Scale Pain Intensity 6 - Physical Exam General Appearance: no apparent distress, alert, other (Patient has contusion to his right forehead.) Eye Exam: PERRL/EOMI, eyes nml inspection Ears, Nose, Throat Exam: normal ENT inspection, TMs normal, pharynx normal, moist mucous membranes Neck Exam: normal inspection, non-tender, supple, full range of motion, other (No neck pain. Cervical spine cleared clinically.) Respiratory Exam: normal breath sounds, lungs clear, No respiratory distress Cardiovascular Exam: regular rate/rhythm, normal heart sounds, normal peripheral pulses Gastrointestinal/Abdomen Exam: soft, normal bowel sounds, No tenderness, No mass Back Exam: normal inspection, normal range of motion, No CVA tenderness, No vertebral tenderness Extremity Exam: normal inspection, normal range of motion, pelvis stable Neurologic Exam: alert, oriented x 3, cooperative, normal mood/affect, sensation nml, No motor deficits Skin Exam: normal color, warm, dry, No rash Lymphatic Exam: No adenopathy SpO2 Interpretation: normal SpO2: 98 O2 Delivery: Room Air - Course Nursing assessment & vital signs reviewed: Yes EKG Interpreted by Me: RATE (96), Sinus Rhythm, NORMAL AXIS, Non-specific ST Changes - Radiology Exams Chest X-ray Interpretation: Interpreted by me ('s are clear. No infiltrate. There is scarring observed at the bases. Possible fibrosis. Normal cardiac silhouette. Intact bony thorax.) - CT Exams Head CT Interpretation: Tele-radiologist Report (CT head New normal compared to 02/07/2021.) Ordered Tests: Active Orders 24 hr Category Date Time Status Credit Verifier STAT Care 03/01/21 20:34 Active EKG-ER Only STAT Care 03/01/21 20:33 Active IV Insertion STAT Care 03/01/21 20:33 Active Pulse Oximetry (ED) STAT Care 03/01/21 20:33 Active CHEST 1 VIEW (PORTABLE) Stat Exams 03/01/21 20:34 Taken HEAD WITHOUT CONTRAST [CT] Stat Exams 03/01/21 21:25 Taken BLOOD CULTURE Stat Lab 03/01/21 20:34 Ordered CBC W DIFF Stat Lab 03/01/21 20:33 Completed CMP Stat Lab 03/01/21 20:33 Completed ETHYL ALCOHOL Stat Lab 03/01/21 20:33 Completed MAGNESIUM Stat Lab 03/01/21 20:33 Completed POCT GLUCOSE Stat Lab 03/01/21 19:31 Completed TROPONIN Q3H Lab 03/01/21 20:33 Completed TROPONIN Q3H Lab 03/01/21 23:00 Completed TROPONIN Q3H Lab 03/02/21 02:45 Ordered TROPONIN Q3H Lab 03/02/21 05:45 Ordered TROPONIN Q3H Lab 03/02/21 08:45 Ordered UA W/RFX UR CULTURE Stat Lab 03/01/21 20:33 Ordered Transfer Order Routine Transfer 03/02/21 Ordered Lab/Rad Data: Laboratory Result Diagrams 03/01/21 20:33 03/01/21 20:33 Laboratory Results 03/01/21 03/01/21 03/01/21 Range/Units 23:00 23:00 20:33 WBC (4.0-10.5) K/mm3 RBC (4.1-5.6) M/mm3 Hgb (12.5-18.0) gm/dl Hct (42-50) % MCV (78-100) fl MCH (26-32) pg MCHC (32-36) g/dl RDW (11.5-14.0) % Plt Count (150-450) K/mm3 MPV (7.5-11.0) fl Gran % (36.0-66.0) % Eos # (Auto) (0-0.5) Absolute Lymphs (auto) (1.0-4.6) Absolute Monos (auto) (0.0-1.3) Lymphocytes % (24.0-44.0) % Monocytes % (0.0-12.0) % Eosinophils % (0.00-5.0) % Basophils % (0.0-0.4) % Absolute Granulocytes (1.4-6.9) Basophils # (0-0.4) Sodium (137-145) mmol/L Potassium (3.5-5.1) mmol/L Chloride (98-107) mmol/L Carbon Dioxide (22-30) mmol/L Anion Gap (5-15) MEQ/L BUN (9-20) mg/dL Creatinine (0.66-1.25) mg/dL Estimated GFR ML/MIN Glucose (74-106) mg/dL POC Glucometer (74 to 106) mg/dL Calcium (8.4-10.2) mg/dL Magnesium (1.6-2.3) mg/dL Total Bilirubin (0.2-1.3) mg/dL AST (17-59) U/L ALT (0-50) U/L Alkaline Phosphatase (38-126) U/L Troponin I < 0.012 < 0.012 (0.000-0.034) ng/mL Serum Total Protein (6.3-8.2) g/dL Albumin (3.5-5.0) g/dL Ethyl Alcohol (0-10) mg/dL SARS-CoV-2 (PCR) NEGATIVE (NEGATIVE) 03/01/21 03/01/21 03/01/21 Range/Units 20:33 20:33 19:31 WBC 7.5 (4.0-10.5) K/mm3 RBC 4.22 (4.1-5.6) M/mm3 Hgb 13.2 (12.5-18.0) gm/dl Hct 39.3 L (42-50) % MCV 93.1 (78-100) fl MCH 31.3 (26-32) pg MCHC 33.6 (32-36) g/dl RDW 13.9 (11.5-14.0) % Plt Count 218 (150-450) K/mm3 MPV 9.7 (7.5-11.0) fl Gran % 66.6 H (36.0-66.0) % Eos # (Auto) 0.10 (0-0.5) Absolute Lymphs (auto) 1.70 (1.0-4.6) Absolute Monos (auto) 0.69 (0.0-1.3) Lymphocytes % 22.6 L (24.0-44.0) % Monocytes % 9.2 (0.0-12.0) % Eosinophils % 1.3 (0.00-5.0) % Basophils % 0.3 (0.0-0.4) % Absolute Granulocytes 5.01 (1.4-6.9) Basophils # 0.02 (0-0.4) Sodium 136 L (137-145) mmol/L Potassium 4.1 (3.5-5.1) mmol/L Chloride 94 L (98-107) mmol/L Carbon Dioxide 29 (22-30) mmol/L Anion Gap 17.2 H (5-15) MEQ/L BUN 13 (9-20) mg/dL Creatinine 0.82 (0.66-1.25) mg/dL Estimated GFR > 60.0 ML/MIN Glucose 145 H (74-106) mg/dL POC Glucometer 149 H (74 to 106) mg/dL Calcium 9.3 (8.4-10.2) mg/dL Magnesium 2.2 (1.6-2.3) mg/dL Total Bilirubin 0.70 (0.2-1.3) mg/dL AST 42 (17-59) U/L ALT 26 (0-50) U/L Alkaline Phosphatase 63 (38-126) U/L Troponin I (0.000-0.034) ng/mL Serum Total Protein 7.5 (6.3-8.2) g/dL Albumin 4.4 (3.5-5.0) g/dL Ethyl Alcohol < 10 (0-10) mg/dL SARS-CoV-2 (PCR) (NEGATIVE) - Progress Progress: improved Progress Note: Patient reassessed. Repeat neuro exam essentially unchanged. CT head negative. Laboratory work-up does not explain patient symptomology. Patient lives alone and is a fall risk. We will admit patient for further work-up and evaluation. Case discussed with Dr. Kunz covering Dr. Lopez. Dr. Kunz accepts admission. Covid test pending. Plan of care discussed with patient. He agrees to admission to [facility] for further evaluation and treatment. 03/01/21 22:32 Discussed with : Jet Will see patient in: hospital (observation) Counseled pt/family regarding: lab results, diagnosis, rad results - Departure Departure Disposition: Observation Clinical Impression: Fall, Confusion, High anion gap metabolic acidosis Condition: Stable Critical Care Time: No Referrals: LARRY RESTREPO [Primary Care Provider] -
[2021-03-02] MEDS ORDERED: Zofran 4 MG/2 ML VIAL IV PRN (01:43)
[2021-03-02] MEDS ORDERED: Senokot-S Tablet PO PRN (01:43)
[2021-03-02] MEDS ORDERED: MAALOX ES 30 ML UNIT DOSE PO PRN (01:43)
[2021-03-02] MEDS ORDERED: MILK OF MAGNESIA 30 ML PO PRN (01:43)
[2021-03-02] MEDS: TYLENOL 325 MG PO PRN ×4 (02:29→22:23)
[2021-03-02 03:58] LABS: Appearance SLIGHTLY CLOUDY (CLEAR); Bilirubin SMALL (NEGATIVE); Blood NEGATIVE Ery/ul (0-5); Glucose NEGATIVE (NEGATIVE); Ketones MODERATE (NEGATIVE); Leukocyte Esterase NEGATIVE (NEGATIVE); Mucus SLIGHT /HPF (NEGATIVE); Nitrite NEGATIVE (NEGATIVE); Protein,Urine Dip 30 (Negative); Specific Gravity 1.025 (1.005-1.025); Urobilinogen 2 mg/dL (0-1)
--- NOTE | 2021-03-02 08:48 | XRAY ---
Indication: Confusion and headache following fall. Hemorrhage. Multiple contiguous images obtained through the head without contrast. Comparison: February 07, 2021. Normal appearing brain parenchyma, ventricles, and bony calvarium for patient's age. Visualized paranasal sinuses and mastoid air cells clear. Impression: Continued normal CT head without contrast exam.
--- NOTE | 2021-03-02 08:50 | XRAY ---
Indication: Pneumonia. Comparison: February 07, 2021. Portable chest clear of infiltrate and effusion. Heart and mediastinal structures within normal limits. Bony thorax intact. No new/acute findings. Impression: Continued nonacute chest.
[2021-03-02] MEDS ORDERED: NON-FORMULARY ITEM (Sumatriptan Succinate [Imitrex 50 Mg] 50 MG) PO PRN (09:47)
[2021-03-02] MEDS ORDERED: XANAX 1 MG PO PRN (09:47)
[2021-03-02] MEDS ORDERED: NON-FORMULARY ITEM (Amlodipine Besylate [Amlodipine Besylate] 10 MG) PO SCH (10:00)
[2021-03-02] MEDS ORDERED: BUDESONIDE IH SCH (10:00)
[2021-03-02] MEDS ORDERED: PROPRANOLOL HCL 60 MG PO SCH (10:00)
[2021-03-02] MEDS ORDERED: [UNRECOGNIZED DRUG - OTHER] IH SCH (10:00)
[2021-03-02] MEDS ORDERED: NON-FORMULARY ITEM (Pravastatin Sodium [Pravastatin Sodium] 20 MG) PO SCH (10:00)
[2021-03-02] MEDS ORDERED: FORMOTEROL FUMARATE IH SCH (10:00)
[2021-03-02] MEDS ORDERED: NON-FORMULARY ITEM (Omeprazole [Omeprazole] 40 MG) PO SCH (10:00)
[2021-03-02] MEDS ORDERED: DIVALPROEX SODIUM 500 MG PO SCH (10:00)
[2021-03-02] MEDS ORDERED: MEDICATION INTERVENTION MC SCH (10:15)
[2021-03-02] MEDS ORDERED: MEDICATION INTERVENTION PO SCH (10:30)
[2021-03-02] MEDS: ECOTRIN 81 MG PO SCH (10:38)
[2021-03-02] MEDS: Pepcid 20 MG PO SCH (10:38)
[2021-03-02] MEDS: NEURONTIN 300 MG PO SCH ×3 (10:38→21:04)
[2021-03-02] MEDS: Protonix 40MG Tablet PO SCH (10:40)
[2021-03-02] MEDS: ZOLOFT 50 MG TABLET PO SCH (10:40)
[2021-03-02] MEDS: Catapres 0.1 MG PO SCH ×3 (10:40→21:04)
[2021-03-02] MEDS: LASIX 20 MG PO SCH (10:40)
[2021-03-02] MEDS: ZOCOR 20MG PO SCH (10:40)
[2021-03-02] MEDS: Klor Con 10 MEQ PO SCH (10:40)
[2021-03-02] MEDS: Glucophage 500 MG PO SCH ×2 (10:40→17:51)
[2021-03-02] MEDS: NON-FORMULARY ITEM PO SCH (10:41)
[2021-03-02] MEDS: NORVASC 5 MG PO SCH (10:41)
[2021-03-02] MEDS: Depakote EXTENDED RELEASE 250 MG PO SCH ×2 (10:42→21:05)
--- NOTE | 2021-03-02 11:54 | XRAY ---
Indication: Syncopal episodes. Weakness. Falls. Sagittal, coronal, and axial MRI brain performed using pre and post T1, T2, FLAIR, diffusion, and ADC sequences. 20 cc Dotarem contrast used. Comparison: December 30, 2019. Ventriculosulcal pattern symmetric. No acute intracranial hemorrhage, abnormal extra-axial fluid collection, or mass effect. Diffusion images are negative for restricted signal. Following gadolinium, there is no abnormal enhancing intra or extra-axial mass. Fourth ventricle is midline without hydrocephalus. 7/8 cranial nerve complex bilaterally symmetric. Normal flow void signal within the major intracerebral circulation. Normal appearing craniocervical junction and sella turcica. There is again minimal fluid signal in both mastoid air cells less than before. Paranasal sinuses are clear. Impression: 1. Again fluid signal in both mastoid air cells possibly inflammatory. 2. Remaining MRI brain with contrast exam is again negative.
--- NOTE | 2021-03-02 15:31 | XRAY ---
Indication: Evaluate urinary bladder postvoid residual. Limited urinary bladder sonogram following voiding demonstrates bladder volume 50 cc. No focal bladder mass. Ureteral jets not seen within the allotted exam time.
[2021-03-03 05:02] VITALS: O2SAT 94
[2021-03-03] MEDS: NEURONTIN 300 MG PO SCH (08:08)
[2021-03-03] MEDS: ZOCOR 20MG PO SCH (08:09)
[2021-03-03] MEDS: ECOTRIN 81 MG PO SCH (08:09)
[2021-03-03] MEDS: ZOLOFT 50 MG TABLET PO SCH (08:09)
[2021-03-03] MEDS: Pepcid 20 MG PO SCH (08:09)
[2021-03-03] MEDS: LASIX 20 MG PO SCH (08:09)
[2021-03-03] MEDS: Catapres 0.1 MG PO SCH (08:09)
[2021-03-03] MEDS: Klor Con 10 MEQ PO SCH (08:10)
[2021-03-03] MEDS: NORVASC 5 MG PO SCH (08:10)
[2021-03-03] MEDS: Protonix 40MG Tablet PO SCH (08:10)
[2021-03-03] MEDS: Glucophage 500 MG PO SCH (08:14)
--- NOTE | 2021-03-03 09:32 | HP ---
CHIEF COMPLAINT: Multiple falls, possible loss of consciousness. HISTORY OF PRESENT ILLNESS: The patient is a 60 year-old white male patient who apparently has been having problems with falling recently. The most recent fall he had fallen and bruised his right eye and has a bruise on his left forearm. The patient reports he is getting worse over time. He does have an appointment to see a neurologist in [place] but due to the acuteness of his problem we thought the patient should be admitted to the hospital for further evaluation and management of the patient. PAST MEDICAL/SURGICAL HISTORY: He is usually taken care of by Maggi Dye NP at our office. He has history of migraine headaches, high cholesterol, hypertension, asthma, chronic obstructive pulmonary disease, sleep apnea, osteoarthritis, anxiety, depression, panic disorder, degenerative osteoarthritis, history of pancreatitis as well. HOME MEDICATIONS: Depakote 500 mg b.i.d., Catapres 0.1 mg t.i.d., Lasix 20 mg daily, gabapentin 600 mg t.i.d., Metformin 500 mg two tablets twice a day, potassium 10 mEq a day, Pravastatin 20 mg a day, Imitrex 50 mg used PRN for migraine headaches, Xanax 1 mg b.i.d. PRN, amitriptyline 50 mg during the day and 150 mg at night, amlodipine 10 mg a day, aspirin 81 mg a day, famotidine 20 mg a day, omeprazole 40 mg a day, propranolol extended release 60 mg a day, Zoloft 50 mg daily. ALLERGIES: NKDA. PHYSICAL EXAMINATION: The patient was seen in the emergency room where it was noted that his vital signs were temperature 97.7F, pulse 92, respiratory rate 16, blood pressure 152/97. O2 saturation 98%. HEENT: Normocephalic, atraumatic. Pupils equal round reactive to light. Extraocular movements intact. Oropharynx is pink and moist. NECK: Supple without lymphadenopathy, thyromegaly or JVD. CHEST: Clear to auscultation. HEART: Regular rate and rhythm. ABDOMEN: Soft. No palpable masses. EXTREMITIES: Without cyanosis, clubbing or edema. SKIN: There is a bruise over his right eye and left forearm. LAB DATA AND TESTS: The patient's laboratory studies showed him to be negative for COVID. His UA showed 3-5 white blood cells per high power field. Troponin was less than 0.012. His LDL cholesterol was 92 and HDL 38, triglycerides 360. CBC was essentially normal. Metabolic panel showed his glucose to be 145. BUN 13 and creatinine 0.82. Sodium slightly low at 136. Potassium normal. Liver enzymes were normal. ETOH was less than 10. He had asked that a urine catheter be placed due to his concern about not being able to urinate. We did do a post-void residual after the catheter was removed that showed 50 cc. The patient's MRI of the head showed fluid signal in both mastoid air cells and MRI of the brain with contrast was negative. His head CT was also likewise negative. His chest x-ray was nonacute. The patient's neurologic status he was able to give the day and date, place and president without any difficulties. ASSESSMENT: A patient with multiple falls. Tele-neurology evaluation and physical therapy evaluation for his debility with ambulation and for his needs in the home in regards to fall management issues.
[2021-03-03] MEDS: Depakote EXTENDED RELEASE 250 MG PO SCH (10:23)
[2021-03-03] MEDS: NON-FORMULARY ITEM PO SCH (10:23)
[2021-03-03 12:24] VITALS: BP 118/67; PULSE 70
== END 2021-03-03 13:15 | disposition home health service (06) ==
LOC: ED 19:15 → MED SURG 03-02 01:42
PROVIDERS: ADMIT Family Medicine; ATTEND Family Medicine
DX: R41.82 Altered mental status, unspecified (principal); R53.1 Weakness; R29.6 Repeated falls; S50.12XA Contusion of left forearm, initial encounter; E11.9 Type 2 diabetes mellitus without complications; S00.11XA Contusion of right eyelid and periocular area, initial encounter; W01.198A Fall on same level from slipping, tripping and stumbling with subsequent striking against other object, initial encounter; Y93.E1 Activity, personal bathing and showering; Y92.002 Bathroom of unspecified non-institutional (private) residence as the place of occurrence of the external cause; Z20.828 Contact with and (suspected) exposure to other viral communicable diseases; Z79.899 Other long term (current) drug therapy; J44.9 Chronic obstructive pulmonary disease, unspecified; I10 Essential (primary) hypertension; E78.00 Pure hypercholesterolemia, unspecified; G47.30 Sleep apnea, unspecified
CPT/HCPCS: 36000; 36415; 70450; 70552; 71045; 76705; 80053; 80061; 80307; 81001; 82947; 83721; 83735; 84484; 85025; 93005; 93041; 93268; 94760; 97161; 99284; G0378; Q3014; U0003; A9270-GY; G0480

== ENCOUNTER 2021-04-19 21:36 | Emergency (ER) | payer OTHER ==
[2021-04-19 21:51] VITALS: BP 136/80; PULSE 98; O2SAT 97
[2021-04-19] MEDS ORDERED: Sodium Chloride 0.9% 1000 ML 1,000 ML IV STA (21:54)
[2021-04-19] MEDS ORDERED: Adacel Vial IM ONE (21:55)
[2021-04-19 22:36] LABS: Absolute Neutrophil Ct (ANC) 6.98 (1.4-6.9); BASOPHIL % 0.2 % (0.0-0.4); Basophil (Absolute #) 0.02 (0-0.4); Eosinophil % 0.6 % (0.00-5.0); Eosinophil (Absolute #) 0.05 (0-0.5); Hemoglobin 12.8 gm/dl (12.5-18.0); Lymphocyte (Absolute #) 1.36 (1.0-4.6); Mean Cell Volume 94.8 fl (78-100); Mean Corpuscular Hemoglobin 31.9 pg (26-32); Mean Corpuscular Hgb Concent. 33.7 g/dl (32-36); Mean Platelet Volume 9.1 fl (7.5-11.0); Monocyte (Absolute #) 0.66 (0.0-1.3); Monocytes % 7.3 % (0.0-12.0); Neutrophil % 76.9 % (36.0-66.0); Platelet Count 210 K/mm3 (150-450); Red Blood Count 4.01 M/mm3 (4.1-5.6); Red Cell Distribution Width 14.1 % (11.5-14.0); White Blood Count 9.1 K/mm3 (4.0-10.5)
[2021-04-19 23:45] LABS: ALBUMIN 4.7 g/dL (3.5-5.0); ALKALINE PHOSPHATASE 59 U/L (38-126); ANION GAP 16.9 MEQ/L (5-15); BLOOD UREA NITROGEN 12 mg/dL (9-20); CHLORIDE 98 mmol/L (98-107); CK-Creatinine Phosphokinase 168 U/L (55-170); Calcium 9.5 mg/dL (8.4-10.2); Carbon Dioxide 25 mmol/L (22-30); Creatinine 1 0.85 mg/dL (0.66-1.25); EST GLOMERULAR FILTRATION RATE > 60.0 ML/MIN; ETHYL ALCOHOL < 10 mg/dL (0-10); Glucose 144 mg/dL (74-106); Potassium 4.4 mmol/L (3.5-5.1); SGOT/AST 30 U/L (17-59); SGPT/ALT 23 U/L (0-50); SODIUM 135 mmol/L (137-145); Total Protein 7.7 g/dL (6.3-8.2)
--- NOTE | 2021-04-19 23:55 | ERPHSYRPT ---
- History of Present Illness Time Seen by Provider: 04/19/21 21:40 Source: patient, EMS Exam Limitations: no limitations Patient Subjective Stated Complaint: pt has fallen at home 2 times today Triage Nursing Assessment: pt brought in by ambulance. Pt had 2 falls today at his apartment. Pt states, "I hit the back of my head the last time I fell on the concrete wall in the hallway." Pt denies any loc. Pt c/o being a little dizzy prior to falling. Pt denies any pain or injuries. Pt Alert and oriented x2, to person and place. Pt states that the month is May. Physician History: 60 years old male with history of hypertension, hyperlipidemia, diabetes mellitus, mood disorder/anxiety/depression was brought in the ER with chief complaint of fall and head injury prior to arrival. Patient report he was walki ng in the hallway and apartment complex, turned rapidly, became dizzy and hit his head against the wall. Did not have any loss of consciousness. Denies any focal numbness tingling weakness. No nausea or vomiting. Denies any visual symptoms or difficulty speech. Patient reports he fell earlier today as well. Denies any chest pain palpitations or shortness of breath before or after the fall. He denies any dizziness currently. Patient reports he did not want to come to ER but a neighbor insisted and he was forced to come. Occurred: just prior to arrival Reason for Fall: lightheaded, became dizzy Injuries/Pain Location: head Loss of Consciousness: no loss of consciousness Quality: aching Severity of Pain-Max: mild Severity of Pain-Current: mild Modifying Factors: Improves With: nothing Associated Symptoms (Fall): extremity injury (Abrasion left forearm), No a bdominal pain, No confusion, No chest pain, No lightheadedness, No muscle spasms, No nausea, No neck pain, No ringing in ears, No seizures, No shortness of breath, No slurred speech, No trouble walking, No vomiting, No vision changes Allergies/Adverse Reactions: No Known Drug Allergies Allergy (Verified 04/19/21 21:58) Home Medications: Divalproex Sodium [Depakote ER] 500 mg PO BID 12/14/16 [History] Clonidine HCl 0.1 mg [Catapres 0.1 MG] 1 tab PO TID 09/11/17 [History] Furosemide 20 mg [Lasix 20 mg] 20 mg PO DAILY 02/14/20 [History] Gabapentin 600 mg PO TID 02/14/20 [History] Metformin HCl 1,000 mg PO BID 02/14/20 [History] Potassium Chloride 10 Meq Tab* [Klor Con 10 MEQ] 1 tab PO DAILY 02/14/20 [History] Pravastatin Sodium 20 mg PO DAILY 02/14/20 [History] SUMAtriptan succinate [Imitrex 50 mg] 50 mg PO UD PRN 06/04/20 [History] ALPRAZolam 1 MG [Xanax 1 mg] 1 mg PO BID PRN PRN 02/07/21 [History] AMITRIPTYLINE HCL 50 mg Tab [AMITRIPTYLINE HCL 50 mg Tablet] 150 mg PO QHS 02/07/21 [History] Amlodipine Besylate 10 mg PO DAILY 02/07/21 [History] Aspirin EC 81 mg [Ecotrin 81 mg] 81 mg PO DAILY 02/07/21 [History] Famotidine 20 mg [Pepcid 20 MG] 20 mg PO DAILY 02/07/21 [History] Omeprazole 40 mg PO DAILY 02/07/21 [History] Propranolol HCl [Propranolol HCl ER] 60 mg PO DAILY 02/07/21 [History] Sertraline HCl 50 mg [Zoloft 50 mg Tablet] 50 mg PO DAILY 02/07/21 [History] Budesonide/Formoterol Fumarate [Budesonide-Formoterol 160-4.5] 2 puff IH BID 03/02/21 [History] Hx Tetanus, Diphtheria Vaccination/Date Given: Yes Hx Influenza Vaccination/Date Given: No Hx Pneumococcal Vaccination/Date Given: No Immunizations Up to Date: Yes Travel Risk - International Travel Have you traveled outside of the country in past 3 weeks: No - Coronavirus Screening Are you exhibiting any of the following symptoms?: No Close contact with a COVID-19 positive Pt in past 14-21 Days: No - Vaccine Status Have you recieved a Covid-19 vaccination: Yes 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 - Vaccination Dates Date of 2cond Vaccination (if applicable): 01/2021 - Review of Systems Constitutional: No Symptoms Eyes: No Symptoms Ears, Nose, & Throat: No Symptoms Respiratory: No Symptoms Cardiac: No Symptoms Abdominal/Gastrointestinal: No Symptoms Genitourinary Symptoms: No Symptoms Musculoskeletal: No Symptoms Skin: Skin Lesions Neurological: Dizziness Psychological: Anxiety, Depression Endocrine: No Symptoms Immunological/Allergic: No Symptoms - Past Medical History Pertinent Past Medical History: Yes Neurological History: Migraines ENT History: No Pertinent History Cardiac History: High Cholesterol, Hypertension Respiratory History: Asthma, COPD, Sleep Apnea Endocrine Medical History: Diabetes Type II, Other Musculoskeletal History: Osteoarthritis GI Medical History: No Pertinent History History: No Pertinent History Psycho-Social History: Anxiety, Depression, Panic Disorder, Other Male Reproductive Disorders: No Pertinent History Other Medical History: degenerative OA, pancreatitis - Past Surgical History Past Surgical History: Yes Neuro Surgical History: No Pertinent History Cardiac: No Pertinent History Respiratory: No Pertinent History Gastrointestinal: No Pertinent History Genitourinary: No Pertinent History Musculoskeletal: Other Male Surgical History: No Pertinent History Other Surgical History: cyst to tailbone. rt shoulder 09/01. hernia repair 2020 - Social History Smoking Status: Current every day smoker Exposure to second hand smoke: Yes Drug Use: marijuana Patient Lives Alone: Yes - Nursing Vital Signs Nursing Vital Signs: Initial Vital Signs Temperature 98.3 F 04/19/21 21:39 Pulse Rate 98 H 04/19/21 21:39 Respiratory Rate 20 04/19/21 21:39 Blood Pressure 136/80 04/19/21 21:39 O2 Sat by Pulse Oximetry 97 04/19/21 21:39 Pain Scale Pain Intensity 0 - Kelsey Coma Score Best Eye Response ([place]): (4) open spontaneously Best Verbal Response (Kelsey): (5) oriented Best Motor Response ([place]): (6) obeys commands [place] Total: 15 - Physical Exam General Appearance: no apparent distress Head Injury: contusions, swelling, tenderness (Mild right occipital), No active bleeding, No Reich's Sign, No raccoon eyes Eye Exam: PERRL/EOMI, eyes nml inspection ENT Exam: airway nml, evidence of ENT injury Neck Exam: supple, trachea midline, full range of motion, normal alignment Respiratory/Chest Exam: chest tenderness, normal breath sounds, No respiratory distress Cardiovascular Exam: normal heart sounds, regular rate/rhythm Gastrointestinal Exam: soft, normal bowel sounds Back Exam: normal inspection, normal range of motion, No CVA tenderness, No vertebral tenderness Extremity Exam: normal inspection, normal range of motion, capillary refill <3 sec, pelvis stable Neurologic Exam: alert, oriented x 3, cooperative, apple sorter II-XII nml as tested, sensation nml, No normal mood/affect (Anxious), No motor deficits Skin Exam: normal color SpO2 Interpretation: normal SpO2: 97 O2 Delivery: Room Air - Course EKG Interpreted by Me: RATE (97), Sinus Rhythm, NORMAL AXIS, NORMAL INTERVALS, Other (ST depression in lateral leads. Nonspecific T wave changes.) Ordered Tests: Active Orders 24 hr Category Date Time Status EKG-ER Only STAT Care 04/19/21 21:54 Active NPO (ED) STAT Care 04/19/21 21:54 Active CERVICAL SPINE WO CONTRAST [CT] Stat Exams 04/19/21 21:54 Taken HEAD WITHOUT CONTRAST [CT] Stat Exams 04/19/21 21:54 Taken CBC W DIFF Stat Lab 04/19/21 22:32 Completed CK-Creatinine Phosphokinase Stat Lab 04/19/21 22:32 Completed CMP Stat Lab 04/19/21 22:32 Completed ETHYL ALCOHOL Stat Lab 04/19/21 22:32 Completed Lactic Acid Stat Lab 04/19/21 23:33 Completed TROPONIN Q3H Lab 04/19/21 22:32 Completed TROPONIN Q3H Lab 04/20/21 01:00 Ordered TROPONIN Q3H Lab 04/20/21 04:00 Ordered TROPONIN Q3H Lab 04/20/21 07:00 Ordered TROPONIN Q3H Lab 04/20/21 10:00 Ordered UA W/RFX UR CULTURE Stat Lab 04/19/21 21:54 Ordered Urine Triage Profile Stat Lab 04/19/21 21:54 Ordered Medication Summary Discontinued Medications Generic Name Dose Route Start Last Admin Trade Name Freq PRN Reason Stop Dose Admin Diphtheria/Tetanus/Acell Pertussis 0.5 ml 04/19/21 21:55 Adacel Vial IM 04/19/21 21:56 .ONCE ONE Sodium Chloride 1,000 mls @ 999 mls/hr 04/19/21 21:54 Sodium Chloride 0.9% 1000 Ml IV 04/19/21 22:54 .Q1H1M STA Lab/Rad Data: Laboratory Result Diagrams 04/19/21 22:32 04/19/21 22:32 Laboratory Results 04/19/21 04/19/21 04/19/21 Range/Units 23:33 22:32 22:32 WBC (4.0-10.5) K/mm3 RBC (4.1-5.6) M/mm3 Hgb (12.5-18.0) gm/dl Hct (42-50) % MCV (78-100) fl MCH (26-32) pg MCHC (32-36) g/dl RDW (11.5-14.0) % Plt Count (150-450) K/mm3 MPV (7.5-11.0) fl Gran % (36.0-66.0) % Eos # (Auto) (0-0.5) Absolute Lymphs (auto) (1.0-4.6) Absolute Monos (auto) (0.0-1.3) Lymphocytes % (24.0-44.0) % Monocytes % (0.0-12.0) % Eosinophils % (0.00-5.0) % Basophils % (0.0-0.4) % Absolute Granulocytes (1.4-6.9) Basophils # (0-0.4) Sodium 135 L (137-145) mmol/L Potassium 4.4 (3.5-5.1) mmol/L Chloride 98 (98-107) mmol/L Carbon Dioxide 25 (22-30) mmol/L Anion Gap 16.9 H (5-15) MEQ/L BUN 12 (9-20) mg/dL Creatinine 0.85 (0.66-1.25) mg/dL Estimated GFR > 60.0 ML/MIN Glucose 144 H (74-106) mg/dL Lactic Acid 1.2 (0.4-2.0) Calcium 9.5 (8.4-10.2) mg/dL Total Bilirubin 0.60 (0.2-1.3) mg/dL AST 30 (17-59) U/L ALT 23 (0-50) U/L Alkaline Phosphatase 59 (38-126) U/L Creatine Kinase 168 (55-170) U/L Troponin I < 0.012 (0.000-0.034) ng/mL Serum Total Protein 7.7 (6.3-8.2) g/dL Albumin 4.7 (3.5-5.0) g/dL Ethyl Alcohol < 10 (0-10) mg/dL 04/19/21 Range/Units 22:32 WBC 9.1 (4.0-10.5) K/mm3 RBC 4.01 L (4.1-5.6) M/mm3 Hgb 12.8 (12.5-18.0) gm/dl Hct 38.0 L (42-50) % MCV 94.8 (78-100) fl MCH 31.9 (26-32) pg MCHC 33.7 (32-36) g/dl RDW 14.1 H (11.5-14.0) % Plt Count 210 (150-450) K/mm3 MPV 9.1 (7.5-11.0) fl Gran % 76.9 H (36.0-66.0) % Eos # (Auto) 0.05 (0-0.5) Absolute Lymphs (auto) 1.36 (1.0-4.6) Absolute Monos (auto) 0.66 (0.0-1.3) Lymphocytes % 15.0 L (24.0-44.0) % Monocytes % 7.3 (0.0-12.0) % Eosinophils % 0.6 (0.00-5.0) % Basophils % 0.2 (0.0-0.4) % Absolute Granulocytes 6.98 H (1.4-6.9) Basophils # 0.02 (0-0.4) Sodium (137-145) mmol/L Potassium (3.5-5.1) mmol/L Chloride (98-107) mmol/L Carbon Dioxide (22-30) mmol/L Anion Gap (5-15) MEQ/L BUN (9-20) mg/dL Creatinine (0.66-1.25) mg/dL Estimated GFR ML/MIN Glucose (74-106) mg/dL Lactic Acid (0.4-2.0) Calcium (8.4-10.2) mg/dL Total Bilirubin (0.2-1.3) mg/dL AST (17-59) U/L ALT (0-50) U/L Alkaline Phosphatase (38-126) U/L Creatine Kinase (55-170) U/L Troponin I (0.000-0.034) ng/mL Serum Total Protein (6.3-8.2) g/dL Albumin (3.5-5.0) g/dL Ethyl Alcohol (0-10) mg/dL - Progress Progress: improved Progress Note: 04/20/21 00:16 Patient has nonfocal neuro exam throughout stay in the ER. I have recommended CT and other work-up. Patient does not want anything to be done and wants to leave as he reports "I am fine and I came in here only because a neighbor wanted it". I have convinced him to stay until CT head is back and it is negative. Patient baseline work-up is grossly unremarkable, as EKG showed some T wave inversions, do not know exactly why he is falling and getting dizzy, recommended observation admission for further evaluation but he does not want to stay in the hospital at all. Patient would follow-up with his primary care. Counseled pt/family regarding: lab results, diagnosis, need for follow-up, rad results - Departure Departure Disposition: Home Clinical Impression: Recurrent falls Scalp contusion Qualifiers: Encounter type: initial encounter Qualified Code(s): S00.03XA - Contusion of scalp, initial encounter Condition: Stable Critical Care Time: No Referrals: LARRY RESTREPO [Primary Care Provider] - (Tomorrow for reevaluation) Instructions: Contusion (DC), Preventing Falls Additional Instructions: Use cane/walker for ambulation. Follow-up with your primary care for r eevaluation. Do not drink alcohol. Return to ER for worsening difficulty ambulation or if having increasing dizziness/lightheadedness.
[2021-04-20] MEDS ORDERED: Adacel Vial IM ONE (00:26)
--- NOTE | 2021-04-20 08:58 | XRAY ---
Indication: Posterior head injury following fall. Multiple contiguous axial images obtained through the head. Comparison: March 01, 2021. Normal appearing brain parenchyma, ventricles, and bony calvarium for patient's age. Visualized paranasal sinuses and mastoid air cells are clear. Impression: Continued normal CT head without contrast exam. Comment: Preliminary interpretation made by [facility]. No critical discrepancy.
--- NOTE | 2021-04-20 09:03 | XRAY ---
Indication: Posterior head injury following fall. Multiple contiguous axial images obtained through the cervical spine. Sagittal and coronal reformatted images obtained. Comparison: None. Anatomic variant for nonunited posterior arch C1. Axial images negative for acute fracture, suspicious bony lesions, or spinal canal stenosis. Minimal/mild C5-T1 degenerative endplate spurring and mild multilevel bilateral degenerative facet hypertrophy left greater than right. Sagittal and coronal reformatted images demonstrates lordotic straightening, positional versus paraspinal spasm. Minimal C6-T1 degenerative disc space narrowing. No acute compression fracture, subluxation, or jumped facet. Normal appearing craniocervical junction. Visualized noncontrasted soft tissues including lung apices are unremarkable Impression: 1. Cervical lordotic straightening, positional versus paraspinal spasm. Negative acute fracture/subluxation. 2. Multilevel degenerative changes. Comment: Preliminary interpretation made by C. No critical discrepancy.
== END 2021-04-20 00:58 | disposition home or self-care (01) ==
LOC: ED 21:36
DX: S00.03XA Contusion of scalp, initial encounter (principal); Z79.899 Other long term (current) drug therapy; J44.9 Chronic obstructive pulmonary disease, unspecified; G47.30 Sleep apnea, unspecified; F51.9 Sleep disorder not due to a substance or known physiological condition, unspecified; E11.9 Type 2 diabetes mellitus without complications; E78.00 Pure hypercholesterolemia, unspecified; W18.30XA Fall on same level, unspecified, initial encounter; Y93.01 Activity, walking, marching and hiking; Y92.9 Unspecified place or not applicable; Y99.8 Other external cause status; R29.6 Repeated falls; R42 Dizziness and giddiness; E78.5 Hyperlipidemia, unspecified
CPT/HCPCS: 36415; 70450; 72125; 80053; 80307; 82550; 83605; 84484; 85025; 90471; 90715; 93005; 99284; G0480

== ENCOUNTER 2021-05-29 10:30 | Emergency (ER) | payer OTHER ==
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
--- NOTE | 2021-05-29 11:28 | XRAY ---
Indication: Pain following fall 2 days ago. Comparison: None 3 view right ankle demonstrates mild soft tissue swelling. No other bony, articular, or soft tissue abnormalities.
--- NOTE | 2021-05-29 11:32 | XRAY ---
Indication: Left-sided pain following fall 2 days ago. Multiple contiguous axial images obtained through the head without contrast. Comparison: April 19, 2021. Normal appearing brain parenchyma, ventricles, and bony calvarium. Visualized paranasal sinuses and mastoid air cells are clear. Impression: Continued normal CT head without contrast exam.
--- NOTE | 2021-05-29 11:32 | XRAY ---
Indication: Pain following fall 2 days ago. Comparison: None 3 nonweightbearing views right foot demonstrates tiny cuboid accessory ossicles. No other bony, articular, or soft tissue abnormalities.
[2021-05-29] MEDS ORDERED: TORAdol 30 mg Injection IM ONE (11:45)
[2021-05-29] MEDS ORDERED: TORAdol 30 mg Injection ONE (11:47)
[2021-05-29 11:56] VITALS: BP 149/86; PULSE 82
[2021-05-29 11:59] VITALS: O2SAT 95
== END 2021-05-29 12:06 | disposition home or self-care (01) ==
LOC: ED 10:30
DX: S93.401A Sprain of unspecified ligament of right ankle, initial encounter (principal); S09.90XA Unspecified injury of head, initial encounter; W01.0XXA Fall on same level from slipping, tripping and stumbling without subsequent striking against object, initial encounter; Y93.01 Activity, walking, marching and hiking; Y92.9 Unspecified place or not applicable; S90.31XA Contusion of right foot, initial encounter; Z79.899 Other long term (current) drug therapy
CPT/HCPCS: 70450; 73610; 73630; 96372; 99284; J1885

== ENCOUNTER 2021-06-04 17:17 | Emergency (ER) | payer OTHER ==
[2021-06-04] MEDS ORDERED: MORPHINE SULFATE 4 MG INJ IV ONE (17:36)
[2021-06-04] MEDS ORDERED: Zofran 4 MG/2 ML VIAL IV ONE (17:36)
[2021-06-04] MEDS ORDERED: Zofran 4 MG/2 ML VIAL ONE (17:43)
[2021-06-04] MEDS ORDERED: MORPHINE SULFATE 4 MG INJ ONE (17:44)
[2021-06-04 18:05] LABS: Absolute Neutrophil Ct (ANC) 11.38 (1.4-6.9); BASOPHIL % 0.2 % (0.0-0.4); Basophil (Absolute #) 0.02 (0-0.4); Eosinophil % 0.2 % (0.00-5.0); Eosinophil (Absolute #) 0.02 (0-0.5); Hematocrit 40.8 % (42-50); Hemoglobin 13.5 gm/dl (12.5-18.0); Mean Cell Volume 92.9 fl (78-100); Mean Corpuscular Hemoglobin 30.8 pg (26-32); Mean Corpuscular Hgb Concent. 33.1 g/dl (32-36); Monocyte (Absolute #) 0.71 (0.0-1.3); Monocytes % 5.3 % (0.0-12.0); Neutrophil % 85.3 % (36.0-66.0); Platelet Count 254 K/mm3 (150-450); Red Blood Count 4.39 M/mm3 (4.1-5.6); Red Cell Distribution Width 13.7 % (11.5-14.0); White Blood Count 13.3 K/mm3 (4.0-10.5)
[2021-06-04 18:17] LABS: ALBUMIN 4.5 g/dL (3.5-5.0); ALKALINE PHOSPHATASE 90 U/L (38-126); ANION GAP 22.6 MEQ/L (5-15); BLOOD UREA NITROGEN 6 mg/dL (9-20); CHLORIDE 98 mmol/L (98-107); Calcium 9.4 mg/dL (8.4-10.2); Carbon Dioxide 20 mmol/L (22-30); Creatinine 1 1.04 mg/dL (0.66-1.25); EST GLOMERULAR FILTRATION RATE > 60.0 ML/MIN; Glucose 161 mg/dL (74-106); LIPASE 34 U/L (23-300); Potassium 4.5 mmol/L (3.5-5.1); SGOT/AST 39 U/L (17-59); SGPT/ALT 24 U/L (0-50); SODIUM 136 mmol/L (137-145); Total Protein 7.8 g/dL (6.3-8.2)
[2021-06-04] MEDS ORDERED: Sodium Chloride 0.9% 1000 ML 1,000 ML IV STA (18:34)
[2021-06-04] MEDS ORDERED: Sodium Chloride 0.9% 1000 ML 1,000 ML ONE (18:35)
--- NOTE | 2021-06-04 19:15 | ERPHSYRPT ---
- History of Present Illness Time Seen by Provider: 06/04/21 17:28 Patient Subjective Stated Complaint: Rib pain Triage Nursing Assessment: Patient brought back to ED via w/c and transferred to bed per self. Patient A+O x3. Patient's skin pink, warm and dry. Patient complains of right rib pain after trippng and falling into a plastic tote. Patient complains of 10/10 right sided rib pain. Lungs clear a/p lisbeth. Physician History: 60 years old male with multiple medical problems including hypertension, diabetes mellitus, frequent falls, tripped and fell on a plastic tote hitting his right lower anterior chest and abdominal wall. Did not hit his head or loss of consciousness. Complaining of sharp shooting moderate to severe pain with deep breathing, palpation and movements. Partial relief with being still and applying binder which she had at home. Denies any difficulty breathing. No nausea or vomiting. No injury anywhere else. Timing/Duration: today, constant, worse Severity: moderate, severe Modifying Factors: Worsens With: movement Associated Symptoms: abdominal pain, No shortness of breath Allergies/Adverse Reactions: No Known Drug Allergies Allergy (Verified 06/04/21 17:31) Home Medications: Divalproex Sodium [Depakote ER] 500 mg PO BID 12/14/16 [History] Clonidine HCl 0.1 mg [Catapres 0.1 MG] 1 tab PO TID 09/11/17 [History] Furosemide 20 mg [Lasix 20 mg] 20 mg PO DAILY 02/14/20 [History] Gabapentin 600 mg PO TID 02/14/20 [History] Metformin HCl 1,000 mg PO BID 02/14/20 [History] Potassium Chloride 10 Meq Tab* [Klor Con 10 MEQ] 1 tab PO DAILY 02/14/20 [History] Pravastatin Sodium 20 mg PO DAILY 02/14/20 [History] SUMAtriptan succinate [Imitrex 50 mg] 50 mg PO UD PRN 06/04/20 [History] ALPRAZolam 1 MG [Xanax 1 mg] 1 mg PO BID PRN PRN 02/07/21 [History] AMITRIPTYLINE HCL 50 mg Tab [AMITRIPTYLINE HCL 50 mg Tablet] 150 mg PO QHS 02/07/21 [History] Amlodipine Besylate 10 mg PO DAILY 02/07/21 [History] Aspirin EC 81 mg [Ecotrin 81 mg] 81 mg PO DAILY 02/07/21 [History] Famotidine 20 mg [Pepcid 20 MG] 20 mg PO DAILY 02/07/21 [History] Omeprazole 40 mg PO DAILY 02/07/21 [History] Propranolol HCl [Propranolol HCl ER] 60 mg PO DAILY 02/07/21 [History] Sertraline HCl 50 mg [Zoloft 50 mg Tablet] 50 mg PO DAILY 02/07/21 [History] Budesonide/Formoterol Fumarate [Budesonide-Formoterol 160-4.5] 2 puff IH BID 03/02/21 [History] Hx Tetanus, Diphtheria Vaccination/Date Given: Yes Hx Influenza Vaccination/Date Given: No Hx Pneumococcal Vaccination/Date Given: No Immunizations Up to Date: Yes Travel Risk - International Travel Have you traveled outside of the country in past 3 weeks: No - Coronavirus Screening Are you exhibiting any of the following symptoms?: No Close contact with a COVID-19 positive Pt in past 14-21 Days: No - Vaccine Status Have you recieved a Covid-19 vaccination: Yes Manufacturing Cost Estimator: Moderna - Vaccination Dates Date of 2cond Vaccination (if applicable): 01/2021 - Review of Systems Constitutional: No Symptoms Eyes: No Symptoms Ears, Nose, & Throat: No Symptoms Respiratory: No Symptoms Cardiac: Chest Pain Abdominal/Gastrointestinal: Abdominal Pain Genitourinary Symptoms: No Symptoms Musculoskeletal: Myalgias Skin: No Symptoms Neurological: No Symptoms Psychological: No Symptoms Endocrine: No Symptoms Hematologic/Lymphatic: No Symptoms Immunological/Allergic: No Symptoms - Past Medical History Pertinent Past Medical History: Yes Neurological History: Migraines ENT History: No Pertinent History Cardiac History: High Cholesterol, Hypertension Respiratory History: Asthma, COPD, Sleep Apnea Endocrine Medical History: Diabetes Type II, Other Musculoskeletal History: Osteoarthritis GI Medical History: No Pertinent History History: No Pertinent History Psycho-Social History: Anxiety, Depression, Panic Disorder, Other Male Reproductive Disorders: No Pertinent History Other Medical History: degenerative OA, pancreatitis - Past Surgical History Past Surgical History: Yes Neuro Surgical History: No Pertinent History Cardiac: No Pertinent History Respiratory: No Pertinent History Gastrointestinal: No Pertinent History Genitourinary: No Pertinent History Musculoskeletal: Other Male Surgical History: No Pertinent History Other Surgical History: cyst to tailbone. rt shoulder 09/01. hernia repair 2020 - Social History Smoking Status: Current every day smoker Exposure to second hand smoke: No Drug Use: marijuana Patient Lives Alone: Yes Significant Family History: no pertinent family hx - Nursing Vital Signs Nursing Vital Signs: Initial Vital Signs Temperature 97.9 F 06/04/21 17:32 Pulse Rate 103 H 06/04/21 17:32 Respiratory Rate 20 06/04/21 17:32 Blood Pressure 145/84 06/04/21 17:32 O2 Sat by Pulse Oximetry 97 06/04/21 17:32 Pain Scale Pain Intensity 8 - Physical Exam General Appearance: no apparent distress, alert, anxiety Eye Exam: PERRL/EOMI, eyes nml inspection Ears, Nose, Throat Exam: normal ENT inspection, TMs normal, pharynx normal Neck Exam: normal inspection, supple, full range of motion Respiratory Exam: normal breath sounds, chest tenderness (Right lower anterior chest wall and right upper quadrant) Cardiovascular Exam: regular rate/rhythm, normal heart sounds Gastrointestinal/Abdomen Exam: soft, normal bowel sounds, tenderness (Right upper quadrant guarding without rebound tenderness. No external signs of injury) Back Exam: normal inspection, normal range of motion Extremity Exam: normal inspection, normal range of motion, pelvis stable Neurologic Exam: alert, oriented x 3, cooperative Skin Exam: normal color SpO2 Interpretation: normal SpO2: 95 O2 Delivery: Room Air Ordered Tests: Active Orders 24 hr Category Date Time Status IV Insertion STAT Care 06/04/21 17:36 Active ABDOMEN AND PELVIS W CONTRAST [CT] Stat Exams 06/04/21 17:36 Taken CHEST WITH CONTRAST [CT] Stat Exams 06/04/21 17:37 Taken CBC W DIFF Stat Lab 06/04/21 18:02 Completed CMP Stat Lab 06/04/21 18:02 Completed LIPASE Stat Lab 06/04/21 18:02 Completed UA W/RFX UR CULTURE Stat Lab 06/04/21 17:36 Ordered Medication Summary Discontinued Medications Generic Name Dose Route Start Last Admin Trade Name Freq PRN Reason Stop Dose Admin Hydrocodone Bitart/Acetaminophen 2 tab 06/04/21 21:33 06/04/21 21:36 [place] 5/325 Mg PO 06/04/21 21:34 2 tab SENT HOME W/ PATIENT ONE Administration Hydrocodone Bitart/Acetaminophen Confirm 06/04/21 21:34 [place] 5/325 Mg Administered 06/04/21 21:35 Dose 2 tab .ROUTE .STK-MED ONE Sodium Chloride 1,000 mls @ 999 mls/hr 06/04/21 18:34 06/04/21 19:38 Sodium Chloride 0.9% 1000 Ml IV 06/04/21 19:34 Infused .Q1H1M STA Infusion Sodium Chloride Confirm 06/04/21 18:35 Sodium Chloride 0.9% 1000 Ml Administered 06/04/21 18:36 Dose 1,000 mls @ ud .ROUTE .STK-MED ONE Morphine Sulfate 4 mg 06/04/21 17:36 06/04/21 17:46 Morphine Sulfate 4 Mg Inj IV 06/04/21 17:37 4 mg STAT ONE Administration Morphine Sulfate Confirm 06/04/21 17:44 Morphine Sulfate 4 Mg Inj Administered 06/04/21 17:45 Dose 4 mg .ROUTE .STK-MED ONE Ondansetron HCl 4 mg 06/04/21 17:36 06/04/21 17:46 Zofran 4 Mg/2 Ml Vial IV 06/04/21 17:37 4 mg STAT ONE Administration Ondansetron HCl Confirm 06/04/21 17:43 Zofran 4 Mg/2 Ml Vial Administered 06/04/21 17:44 Dose 4 mg .ROUTE .STK-MED ONE Oxycodone/Acetaminophen 1 tab 06/04/21 21:32 06/04/21 21:36 Percocet Tablet 5/325mg PO 06/04/21 21:33 1 tab STAT ONE Administration Oxycodone/Acetaminophen Confirm 06/04/21 21:34 Percocet Tablet 5/325mg Administered 06/04/21 21:35 Dose 1 tab .ROUTE .STK-MED ONE Lab/Rad Data: Laboratory Result Diagrams 06/04/21 18:02 06/04/21 18:02 Laboratory Results 06/04/21 06/04/21 Range/Units 18:02 18:02 WBC 13.3 H (4.0-10.5) K/mm3 RBC 4.39 (4.1-5.6) M/mm3 Hgb 13.5 (12.5-18.0) gm/dl Hct 40.8 L (42-50) % MCV 92.9 (78-100) fl MCH 30.8 (26-32) pg MCHC 33.1 (32-36) g/dl RDW 13.7 (11.5-14.0) % Plt Count 254 (150-450) K/mm3 MPV 9.0 (7.5-11.0) fl Gran % 85.3 H (36.0-66.0) % Eos # (Auto) 0.02 (0-0.5) Absolute Lymphs (auto) 1.20 (1.0-4.6) Absolute Monos (auto) 0.71 (0.0-1.3) Lymphocytes % 9.0 L (24.0-44.0) % Monocytes % 5.3 (0.0-12.0) % Eosinophils % 0.2 (0.00-5.0) % Basophils % 0.2 (0.0-0.4) % Absolute Granulocytes 11.38 H (1.4-6.9) Basophils # 0.02 (0-0.4) Sodium 136 L (137-145) mmol/L Potassium 4.5 (3.5-5.1) mmol/L Chloride 98 (98-107) mmol/L Carbon Dioxide 20 L (22-30) mmol/L Anion Gap 22.6 H (5-15) MEQ/L BUN 6 L (9-20) mg/dL Creatinine 1.04 (0.66-1.25) mg/dL Estimated GFR > 60.0 ML/MIN Glucose 161 H (74-106) mg/dL Calcium 9.4 (8.4-10.2) mg/dL Total Bilirubin 0.80 (0.2-1.3) mg/dL AST 39 (17-59) U/L ALT 24 (0-50) U/L Alkaline Phosphatase 90 (38-126) U/L Serum Total Protein 7.8 (6.3-8.2) g/dL Albumin 4.5 (3.5-5.0) g/dL Lipase 34 (23-300) U/L - Progress Progress: improved, pain not gone completely, re-examined Progress Note: 06/04/21 21:33 He is given morphine for symptomatic relief. Work-up showed white count of 13, gap of 22 with mildly low bicarb and a blood sugar in 160s. I believe is secondary to dehydration and given fluids. I have obtained CT chest and abdomen/pelvis with contrast which showed multiple ribs fracture on the right from - but no acute intra-abdominal findings. No pneumo or hemothorax. With so many rib fracture I have offered him admission for pain control but patient does not want to stay in the hospital at all. I would give him [place]'s to go home and recommended outpatient follow-up and breathing exercises. I have advised him to use cane/walker for ambulation to avoid any fall. Discussed signs symptoms of worsening needing return to ER which he seems understanding. Counseled pt/family regarding: lab results, diagnosis, need for follow-up, rad results - Departure Departure Disposition: Home Clinical Impression: Fall Ribs, multiple fractures Qualifiers: Encounter type: initial encounter Fracture type: closed Laterality: right Qualified Code(s): S22.41XA - Multiple fractures of ribs, right side, initial encounter for closed fracture Condition: Stable Critical Care Time: No Referrals: LARRY RESTREPO NP [Primary Care Provider] - (Call tomorrow for reevaluation) Instructions: Rib Fracture (DC) Additional Instructions: Take pain medications only as needed. Follow-up with your primary care for reevaluation. Do deep breathing exercises. Return to ER for worsening pain or difficulty breathing etc. use cane/walker for ambulation to avoid another fall. Prescriptions: Hydrocodone/APAP 5/325 [[place] 5/325 mg] 1 each PO Q6H PRN PRN 3 Days #12 tablet MDD 4 PRN Reason: Pain
[2021-06-04] MEDS ORDERED: PERCOCET TABLET 5/325MG PO ONE (21:32)
[2021-06-04] MEDS ORDERED: NORCO 5/325 MG PO ONE (21:33)
[2021-06-04] MEDS ORDERED: NORCO 5/325 MG ONE (21:34)
[2021-06-04] MEDS ORDERED: PERCOCET TABLET 5/325MG ONE (21:34)
[2021-06-04 22:08] VITALS: BP 143/66; PULSE 84; O2SAT 96
--- NOTE | 2021-06-05 08:40 | XRAY ---
Indication: Right-sided pain following fall. Multiple contiguous axial images obtained through the chest using 100 cc Isovue 370 contrast. Comparison: June 04, 2020. Lungs again demonstrates bilateral dependent atelectasis right greater than left. No suspicious pulmonary mass, infiltrate, effusion, or pneumothorax. Heart is not enlarged. Aorta is normal in course and caliber. No pathologic mediastinal/hilar lymphadenopathy. Bony thorax demonstrates new nondisplaced anterior lateral right 5-10 rib fractures. Stable degenerative changes throughout the spine. CT abdomen/pelvis reported separately. Impression: New right 5-10 rib fractures without hemothorax/pneumothorax. Comment: Preliminary interpretation made by [facility]. No critical discrepancy.
--- NOTE | 2021-06-05 08:44 | XRAY ---
Indication: Right-sided pain following fall. Multiple contiguous axial images obtained through the abdomen and pelvis using 100 cc Isovue 370 contrast. Comparison: February 07, 2021. CT chest reported separately. Noncontrasted stomach and bowel loops nonobstructed. Stable small descending duodenal diverticulum. No free fluid/air. Again tiny gallbladder sludge/gravel in the dependent portion. Remaining liver, gallbladder, pancreas, spleen, adrenal glands, kidneys, ureters, and bladder are unremarkable. Stable minimal aortoiliac calcifications. No AAA or pathologic retroperitoneal lymphadenopathy. Osseous structures again demonstrates degenerative changes throughout the spine. New finding healing right 12 rib fracture. Impression: 1. Stable tiny gallbladder sludge/gravel and duodenal diverticulum. 2. New finding old right 12 rib fracture. 3[address] Remaining CT abdomen/pelvis with contrast exam is negative. Comment: Preliminary interpretation made by [facility]. No critical discrepancy.
== END 2021-06-04 22:00 | disposition home or self-care (01) ==
LOC: ED 17:17
DX: S22.41XA Multiple fractures of ribs, right side, initial encounter for closed fracture (principal); I10 Essential (primary) hypertension; E11.9 Type 2 diabetes mellitus without complications; W01.198A Fall on same level from slipping, tripping and stumbling with subsequent striking against other object, initial encounter; R10.9 Unspecified abdominal pain; Z79.899 Other long term (current) drug therapy; E78.00 Pure hypercholesterolemia, unspecified
CPT/HCPCS: 36000; 36415; 71260; 74177; 80053; 83690; 85025; 96374; 96375; 99284; J2270; J2405; A9270-GY

== ENCOUNTER 2021-06-08 16:24 | Observation (INO) | payer OTHER ==
--- NOTE | 2021-06-08 17:18 | XRAY ---
Indication: Status post fall. Multiple contiguous axial images obtained through the head without contrast. Comparison: May 29, 2021. Again age-appropriate global atrophy. No acute intracranial hemorrhage, abnormal extra-axial fluid collection, or mass effect. Fourth ventricle is midline without hydrocephalus. Duran-white matter differentiation preserved. Bony calvarium intact. Paranasal sinuses and mastoid air cells are clear. Impression: Continued negative CT head without contrast exam.
[2021-06-08] MEDS: Sodium Chloride 0.9% 1000 ML 1,000 ML IV SCH (17:43)
[2021-06-08 17:54] LABS: BASOPHIL % 0.2 % (0.0-0.4); Basophil (Absolute #) 0.02 (0-0.4); Eosinophil % 0.3 % (0.00-5.0); Eosinophil (Absolute #) 0.04 (0-0.5); Hematocrit 34.5 % (42-50); Hemoglobin 11.4 gm/dl (12.5-18.0); Lymphocyte (Absolute #) 1.18 (1.0-4.6); Lymphocytes % 10.3 % (24.0-44.0); Mean Cell Volume 94.3 fl (78-100); Mean Corpuscular Hemoglobin 31.1 pg (26-32); Mean Platelet Volume 8.5 fl (7.5-11.0); Monocyte (Absolute #) 0.92 (0.0-1.3); Neutrophil % 81.2 % (36.0-66.0); Platelet Count 239 K/mm3 (150-450); Red Blood Count 3.66 M/mm3 (4.1-5.6); Red Cell Distribution Width 14.1 % (11.5-14.0); White Blood Count 11.5 K/mm3 (4.0-10.5)
[2021-06-08 18:05] LABS: ALBUMIN 3.8 g/dL (3.5-5.0); ALKALINE PHOSPHATASE 79 U/L (38-126); ANION GAP 14.5 MEQ/L (5-15); BLOOD UREA NITROGEN 10 mg/dL (9-20); CHLORIDE 94 mmol/L (98-107); Calcium 9.3 mg/dL (8.4-10.2); Carbon Dioxide 30 mmol/L (22-30); Creatinine 1 0.98 mg/dL (0.66-1.25); EST GLOMERULAR FILTRATION RATE > 60.0 ML/MIN; Glucose 175 mg/dL (74-106); MAGNESIUM 1.4 mg/dL (1.6-2.3); Potassium 3.9 mmol/L (3.5-5.1); SGOT/AST 28 U/L (17-59); SGPT/ALT 22 U/L (0-50); SODIUM 134 mmol/L (137-145); Total Protein 6.9 g/dL (6.3-8.2)
--- NOTE | 2021-06-08 18:39 | ERPHSYRPT ---
- History of Present Illness Time Seen by Provider: 06/08/21 16:30 Source: patient Exam Limitations: no limitations Patient Subjective Stated Complaint: frequent recurring falls Triage Nursing Assessment: pt to ED c/o recurrent falls. reports he was in ED recently and dx with broken ribs on the R side. only c/o pain today is residual in the R side ribs from last fall. rates 8/10 now. also reports his daughter gave him 3 of his pain pills prior to calling EMS but is unsure what medication it was. A&Ox3. + blood thinners, no LOC but did hit head and c collar was placed by EMS. Physician History: Patient is a 60-year-old male presents to our ED via EMS collared nonboarded for evaluation of recurrent falls. Patient states he was in our ED recently for the same. At that time patient had fractured ribs on the right side. Patient currently complains of pain at his right ribs which is the same as the pain that he has been experiencing since his fracture. Patient was walking near his home when his legs gave out. No syncope. No LOC. Patient states his legs have been giving out more frequently as of late. Patient took a [place] pill prior to his arrival to our ED. There are reports of patient on blood thinners however there are no blood thinners on his medication list. Patient denies neck pain. Cervical spine cleared clinically. Patient voices no other complaints or concerns at this time. Timing/Duration: today Severity: moderate Modifying Factors: Improves With: nothing Associated Symptoms: denies symptoms Allergies/Adverse Reactions: No Known Drug Allergies Allergy (Verified 06/08/21 16:38) Home Medications: Divalproex Sodium [Depakote ER] 500 mg PO BID 12/14/16 [History] Clonidine HCl 0.1 mg [Catapres 0.1 MG] 1 tab PO TID 09/11/17 [History] Furosemide 20 mg [Lasix 20 mg] 20 mg PO DAILY 02/14/20 [History] Gabapentin 600 mg PO TID 02/14/20 [History] Metformin HCl 1,000 mg PO BID 02/14/20 [History] Potassium Chloride 10 Meq Tab* [Klor Con 10 MEQ] 1 tab PO DAILY 02/14/20 [History] Pravastatin Sodium 20 mg PO DAILY 02/14/20 [History] SUMAtriptan succinate [Imitrex 50 mg] 50 mg PO UD PRN 06/04/20 [History] ALPRAZolam 1 MG [Xanax 1 mg] 1 mg PO BID PRN PRN 02/07/21 [History] AMITRIPTYLINE HCL 50 mg Tab [AMITRIPTYLINE HCL 50 mg Tablet] 150 mg PO QHS 02/07/21 [History] Amlodipine Besylate 10 mg PO DAILY 02/07/21 [History] Aspirin EC 81 mg [Ecotrin 81 mg] 81 mg PO DAILY 02/07/21 [History] Famotidine 20 mg [Pepcid 20 MG] 20 mg PO DAILY 02/07/21 [History] Omeprazole 40 mg PO DAILY 02/07/21 [History] Propranolol HCl [Propranolol HCl ER] 60 mg PO DAILY 02/07/21 [History] Sertraline HCl 50 mg [Zoloft 50 mg Tablet] 50 mg PO DAILY 02/07/21 [History] Budesonide/Formoterol Fumarate [Budesonide-Formoterol 160-4.5] 2 puff IH BID 03/02/21 [History] Hx Tetanus, Diphtheria Vaccination/Date Given: Yes Hx Influenza Vaccination/Date Given: Yes Hx Pneumococcal Vaccination/Date Given: No Immunizations Up to Date: Yes Travel Risk - International Travel Have you traveled outside of the country in past 3 weeks: No - Coronavirus Screening Are you exhibiting any of the following symptoms?: No Close contact with a COVID-19 positive Pt in past 14-21 Days: No - Vaccine Status Have you recieved a Covid-19 vaccination: Yes Test 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: Moderna - Vaccination Dates Date of 2cond Vaccination (if applicable): January - Review of Systems Constitutional: No Symptoms, No Fever, No Chills Eyes: No Symptoms Ears, Nose, & Throat: No Symptoms Respiratory: No Symptoms, No Cough, No Dyspnea Cardiac: No Symptoms, No Chest Pain, No Edema, No Syncope Abdominal/Gastrointestinal: No Symptoms, No Abdominal Pain, No Nausea, No Vomiting, No Diarrhea Genitourinary Symptoms: No Symptoms, No Dysuria Musculoskeletal: No Symptoms, No Back Pain, No Neck Pain Skin: No Symptoms, No Rash Neurological: No Symptoms, No Dizziness, No Focal Weakness, No Sensory Changes Psychological: No Symptoms Endocrine: No Symptoms Hematologic/Lymphatic: No Symptoms Immunological/Allergic: No Symptoms All Other Systems: Reviewed and Negative - Past Medical History Pertinent Past Medical History: Yes Neurological History: Migraines ENT History: No Pertinent History Cardiac History: High Cholesterol, Hypertension Respiratory History: Asthma, COPD, Sleep Apnea Endocrine Medical History: Diabetes Type II, Other Musculoskeletal History: Osteoarthritis GI Medical History: No Pertinent History History: No Pertinent History Psycho-Social History: Anxiety, Depression, Panic Disorder, Other Male Reproductive Disorders: No Pertinent History Other Medical History: degenerative OA, pancreatitis - Past Surgical History Past Surgical History: Yes Neuro Surgical History: No Pertinent History Cardiac: No Pertinent History Respiratory: No Pertinent History Gastrointestinal: No Pertinent History Genitourinary: No Pertinent History Musculoskeletal: Other Male Surgical History: No Pertinent History Other Surgical History: cyst to tailbone. rt shoulder 09/01. hernia repair 2020 - Social History Smoking Status: Never smoker Exposure to second hand smoke: No Drug Use: none Patient Lives Alone: Yes Significant Family History: no pertinent family hx - Nursing Vital Signs Nursing Vital Signs: Initial Vital Signs Temperature 98.1 F 06/08/21 16:27 Pulse Rate 98 H 06/08/21 16:27 Respiratory Rate 22 06/08/21 16:27 Blood Pressure 137/78 06/08/21 16:27 O2 Sat by Pulse Oximetry 93 L 06/08/21 16:27 Pain Scale Pain Intensity 5 - Physical Exam General Appearance: no apparent distress, alert, other (Patient lying in bed. Cervical collar intact. No acute distress.) Eye Exam: PERRL/EOMI, eyes nml inspection Ears, Nose, Throat Exam: normal ENT inspection, TMs normal, pharynx normal, moist mucous membranes Neck Exam: normal inspection, non-tender, supple (Range of motion not assessed. Cervical collar intact.) Respiratory Exam: normal breath sounds, lungs clear, airway intact, No respiratory distress Cardiovascular Exam: regular rate/rhythm, normal heart sounds, normal peripheral pulses Gastrointestinal/Abdomen Exam: soft, normal bowel sounds, No tenderness, No mass Back Exam: normal inspection, normal range of motion, No CVA tenderness, No vertebral tenderness Extremity Exam: normal inspection, normal range of motion, pelvis stable Neurologic Exam: alert, oriented x 3, cooperative, normal mood/affect, sensation nml, No motor deficits Skin Exam: normal color, warm, dry, No rash Lymphatic Exam: No adenopathy SpO2 Interpretation: normal SpO2: 96 O2 Delivery: Room Air - Course Nursing assessment & vital signs reviewed: Yes EKG Interpreted by Me: RATE (88), Sinus Rhythm, NORMAL AXIS, NORMAL INTERVALS - CT Exams Head CT Interpretation: Tele-radiologist Report (Continued negative CT head without contrast exam. Age-appropriate global atrophy. No acute intracranial hemorrhage abnormal extra-axial fluid collection or mass-effect. Fourth ventricle is midline without hydrocephalus. Duarn-white matter differentiation preserved. Bony calvarium intact.) Ordered Tests: Active Orders 24 hr Category Date Time Status Engineering And Development Director STAT Care 06/08/21 16:45 Active EKG-ER Only STAT Care 06/08/21 16:44 Active IV Insertion STAT Care 06/08/21 16:44 Active Pulse Oximetry (ED) STAT Care 06/08/21 16:44 Active HEAD WITHOUT CONTRAST [CT] Stat Exams 06/08/21 16:46 Completed CBC W DIFF Stat Lab 06/08/21 17:41 Completed CMP Stat Lab 06/08/21 17:41 Completed ETHYL ALCOHOL Stat Lab 06/08/21 19:03 Completed MAGNESIUM Stat Lab 06/08/21 17:41 Completed TROPONIN Q3H Lab 06/08/21 17:41 Completed TROPONIN Q3H Lab 06/08/21 20:25 Completed TROPONIN Q3H Lab 06/08/21 23:00 Ordered TROPONIN Q3H Lab 06/09/21 02:00 Ordered TROPONIN Q3H Lab 06/09/21 05:00 Ordered UA W/RFX UR CULTURE Stat Lab 06/08/21 19:38 Completed Transfer Order Routine Transfer 06/08/21 Ordered Medication Summary Generic Name Dose Route Start Last Admin Trade Name Edwardq PRN Reason Stop Dose Admin Folic Acid 1 mg 06/09/21 10:00 Folic Acid 1 Mg Tablet PO 07/09/21 09:59 DAILY KASSIDY Sodium Chloride 1,000 mls @ 100 mls/hr 06/08/21 16:45 06/08/21 17:43 Sodium Chloride 0.9% 1000 Ml IV 07/08/21 16:44 100 mls/hr .Q10H KASSIDY Administration Magnesium Sulfate/Dextrose 100 mls @ 100 mls/hr 06/08/21 18:45 Magnesium 1 Gm / 100 Ml D5w IV 06/08/21 20:44 Q1H KASSIDY Thiamine HCl 100 mg/ 1,000 mls @ 100 mls/hr 06/08/21 19:15 Multivitamins/Minerals 10 ml/ IV 07/08/21 19:14 Folic Acid 1 mg/ Sodium .Q10H [facility] Chloride Multivitamins Therapeutic 1 tab 06/09/21 10:00 Multivitamins,Therapeutic 1 Tab Tab PO 07/09/21 09:59 QAM [facility] Thiamine HCl 100 mg 06/09/21 10:00 Thiamine Hcl 100 Mg Tablet PO 07/09/21 09:59 DAILY [facility] Lab/Rad Data: Laboratory Result Diagrams 06/08/21 17:41 06/08/21 17:41 Laboratory Results 06/08/21 06/08/21 06/08/21 Range/Units 20:32 20:25 20:25 WBC (4.0-10.5) K/mm3 RBC (4.1-5.6) M/mm3 Hgb (12.5-18.0) gm/dl Hct (42-50) % MCV (78-100) fl MCH (26-32) pg MCHC (32-36) g/dl RDW (11.5-14.0) % Plt Count (150-450) K/mm3 MPV (7.5-11.0) fl Gran % (36.0-66.0) % Eos # (Auto) (0-0.5) Absolute Lymphs (auto) (1.0-4.6) Absolute Monos (auto) (0.0-1.3) Lymphocytes % (24.0-44.0) % Monocytes % (0.0-12.0) % Eosinophils % (0.00-5.0) % Basophils % (0.0-0.4) % Absolute Granulocytes (1.4-6.9) Basophils # (0-0.4) Sodium (137-145) mmol/L Potassium (3.5-5.1) mmol/L Chloride (98-107) mmol/L Carbon Dioxide (22-30) mmol/L Anion Gap (5-15) MEQ/L BUN (9-20) mg/dL Creatinine (0.66-1.25) mg/dL Estimated GFR ML/MIN Glucose (74-106) mg/dL Calcium (8.4-10.2) mg/dL Magnesium (1.6-2.3) mg/dL Total Bilirubin (0.2-1.3) mg/dL AST (17-59) U/L ALT (0-50) U/L Alkaline Phosphatase (38-126) U/L Troponin I < 0.012 (0.000-0.034) ng/mL Serum Total Protein (6.3-8.2) g/dL Albumin (3.5-5.0) g/dL Urine Color (YELLOW) Urine Appearance (CLEAR) Urine pH (5-6) Ur Specific [place] (1.005-1.025) Urine Protein (Negative) Urine Ketones (NEGATIVE) Urine Blood (0-5) Dean/ul Urine Nitrite (NEGATIVE) Urine Bilirubin (NEGATIVE) Urine Urobilinogen (0-1) mg/dL Ur Leukocyte Esterase (NEGATIVE) Urine WBC (Auto) (0-5) /HPF Urine RBC (Auto) (0-2) /HPF U Hyaline Cast (Auto) (0-2) /LPF U Epithel Cells (Auto) (FEW) /HPF Urine Bacteria (Auto) (NEGATIVE) /HPF Urine Mucus (Auto) (NEGATIVE) /HPF Urine Culture Reflexed (NO) Urine Glucose (NEGATIVE) mg/dL Valproic Acid 50.7 (50-100) ug/mL Ethyl Alcohol (0-10) mg/dL SARS-CoV-2 (PCR) NEGATIVE (NEGATIVE) 06/08/21 06/08/21 06/08/21 Range/Units 19:38 19:03 17:41 WBC (4.0-10.5) K/mm3 RBC (4.1-5.6) M/mm3 Hgb (12.5-18.0) gm/dl Hct (42-50) % MCV (78-100) fl MCH (26-32) pg MCHC (32-36) g/dl RDW (11.5-14.0) % Plt Count (150-450) K/mm3 MPV (7.5-11.0) fl Gran % (36.0-66.0) % Eos # (Auto) (0-0.5) Absolute Lymphs (auto) (1.0-4.6) Absolute Monos (auto) (0.0-1.3) Lymphocytes % (24.0-44.0) % Monocytes % (0.0-12.0) % Eosinophils % (0.00-5.0) % Basophils % (0.0-0.4) % Absolute Granulocytes (1.4-6.9) Basophils # (0-0.4) Sodium (137-145) mmol/L Potassium (3.5-5.1) mmol/L Chloride (98-107) mmol/L Carbon Dioxide (22-30) mmol/L Anion Gap (5-15) MEQ/L BUN (9-20) mg/dL Creatinine (0.66-1.25) mg/dL Estimated GFR ML/MIN Glucose (74-106) mg/dL Calcium (8.4-10.2) mg/dL Magnesium (1.6-2.3) mg/dL Total Bilirubin (0.2-1.3) mg/dL AST (17-59) U/L ALT (0-50) U/L Alkaline Phosphatase (38-126) U/L Troponin I < 0.012 (0.000-0.034) ng/mL Serum Total Protein (6.3-8.2) g/dL Albumin (3.5-5.0) g/dL Urine Color YELLOW (YELLOW) Urine Appearance SLIGHTLY CLOUDY (CLEAR) Urine pH 5.0 (5-6) Ur Specific [place] 1.015 (1.005-1.025) Urine Protein NEGATIVE (Negative) Urine Ketones NEGATIVE (NEGATIVE) Urine Blood NEGATIVE (0-5) Dean/ul Urine Nitrite NEGATIVE (NEGATIVE) Urine Bilirubin NEGATIVE (NEGATIVE) Urine Urobilinogen NEGATIVE (0-1) mg/dL Ur Leukocyte Esterase NEGATIVE (NEGATIVE) Urine WBC (Auto) 3-5 (0-5) /HPF Urine RBC (Auto) 0-2 (0-2) /HPF U Hyaline Cast (Auto) 26-50 (0-2) /LPF U Epithel Cells (Auto) NONE (FEW) /HPF Urine Bacteria (Auto) RARE (NEGATIVE) /HPF Urine Mucus (Auto) SLIGHT (NEGATIVE) /HPF Urine Culture Reflexed NO (NO) Urine Glucose NEGATIVE (NEGATIVE) mg/dL Valproic Acid (50-100) ug/mL Ethyl Alcohol < 10 (0-10) mg/dL SARS-CoV-2 (PCR) (NEGATIVE) 06/08/21 06/08/21 Range/Units 17:41 17:41 WBC 11.5 H (4.0-10.5) K/mm3 RBC 3.66 L (4.1-5.6) M/mm3 Hgb 11.4 L (12.5-18.0) gm/dl Hct 34.5 L (42-50) % MCV 94.3 (78-100) fl MCH 31.1 (26-32) pg MCHC 33.0 (32-36) g/dl RDW 14.1 H (11.5-14.0) % Plt Count 239 (150-450) K/mm3 MPV 8.5 (7.5-11.0) fl Gran % 81.2 H (36.0-66.0) % Eos # (Auto) 0.04 (0-0.5) Absolute Lymphs (auto) 1.18 (1.0-4.6) Absolute Monos (auto) 0.92 (0.0-1.3) Lymphocytes % 10.3 L (24.0-44.0) % Monocytes % 8.0 (0.0-12.0) % Eosinophils % 0.3 (0.00-5.0) % Basophils % 0.2 (0.0-0.4) % Absolute Granulocytes 9.30 H (1.4-6.9) Basophils # 0.02 (0-0.4) Sodium 134 L (137-145) mmol/L Potassium 3.9 (3.5-5.1) mmol/L Chloride 94 L (98-107) mmol/L Carbon Dioxide 30 (22-30) mmol/L Anion Gap 14.5 (5-15) MEQ/L BUN 10 (9-20) mg/dL Creatinine 0.98 (0.66-1.25) mg/dL Estimated GFR > 60.0 ML/MIN Glucose 175 H (74-106) mg/dL Calcium 9.3 (8.4-10.2) mg/dL Magnesium 1.4 L (1.6-2.3) mg/dL Total Bilirubin 0.60 (0.2-1.3) mg/dL AST 28 (17-59) U/L ALT 22 (0-50) U/L Alkaline Phosphatase 79 (38-126) U/L Troponin I (0.000-0.034) ng/mL Serum Total Protein 6.9 (6.3-8.2) g/dL Albumin 3.8 (3.5-5.0) g/dL Urine Color (YELLOW) Urine Appearance (CLEAR) Urine pH (5-6) Ur Specific [place] (1.005-1.025) Urine Protein (Negative) Urine Ketones (NEGATIVE) Urine Blood (0-5) Dean/ul Urine Nitrite (NEGATIVE) Urine Bilirubin (NEGATIVE) Urine Urobilinogen (0-1) mg/dL Ur Leukocyte Esterase (NEGATIVE) Urine WBC (Auto) (0-5) /HPF Urine RBC (Auto) (0-2) /HPF U Hyaline Cast (Auto) (0-2) /LPF U Epithel Cells (Auto) (FEW) /HPF Urine Bacteria (Auto) (NEGATIVE) /HPF Urine Mucus (Auto) (NEGATIVE) /HPF Urine Culture Reflexed (NO) Urine Glucose (NEGATIVE) mg/dL Valproic Acid (50-100) ug/mL Ethyl Alcohol (0-10) mg/dL SARS-CoV-2 (PCR) (NEGATIVE) - Progress Progress: improved Progress Note: Case discussed with Dr. Voss. Dr. Voss requesting alcohol level thiamine level and teleneuro consult. We will order a banana bag for our patient. Covid test pending. 06/08/21 19:06 Case discussed with teleneuro. He advises decreasing gabapentin by half and stopping it altogether. He feels gabapentin may be contributing to patient's symptomology. He also wants to obtain a valproic acid level. Valproic acid level ordered. 06/08/21 19:42 Discussed with : Patrick Counseled pt/family regarding: lab results, diagnosis, rad results - Departure Departure Disposition: Observation Clinical Impression: Falls, Hypomagnesemia, Asterixis, Myoclonus Condition: Stable Critical Care Time: No Referrals: LARRY RESTREPO NP [Primary Care Provider] -
[2021-06-08 20:50] LABS: Appearance SLIGHTLY CLOUDY (CLEAR); Bacteria RARE /HPF (NEGATIVE); Bilirubin NEGATIVE (NEGATIVE); Blood NEGATIVE Ery/ul (0-5); Glucose NEGATIVE (NEGATIVE); Hyaline Casts 26-50 /LPF (0-2); Ketones NEGATIVE (NEGATIVE); Leukocyte Esterase NEGATIVE (NEGATIVE); Mucus SLIGHT /HPF (NEGATIVE); Nitrite NEGATIVE (NEGATIVE); Protein,Urine Dip NEGATIVE (Negative); RBC 0-2 /HPF (0-2); Specific Gravity 1.015 (1.005-1.025); Urobilinogen NEGATIVE mg/dL (0-1)
[2021-06-08] MEDS ORDERED: Sodium Chloride 0.9% 1000 ML 1,000 ML IV SCH (22:10)
[2021-06-08] MEDS ORDERED: Zofran 4 MG/2 ML VIAL IV PRN (22:10)
[2021-06-08] MEDS: Magnesium 1 Gm / 100 Ml D5W*** 100 ML IV SCH (23:32)
[2021-06-09] MEDS: Magnesium 1 Gm / 100 Ml D5W*** 100 ML IV SCH (00:05)
[2021-06-09] MEDS: THIAMINE 200 MG/2 ML*** 100 MG, Vitamins For Infusion 10 ML INJECTION*** 10 ML, FOLNATE... IV SCH ×8 (00:11→08:34)
[2021-06-09] MEDS: Sodium Chloride 0.9% 1000 ML 1,000 ML IV SCH (02:29)
[2021-06-09] MEDS: MORPHINE SULFATE 4 MG INJ IV PRN ×4 (04:38→22:57)
[2021-06-09 05:10] LABS: Absolute Neutrophil Ct (ANC) 7.28 (1.4-6.9); BASOPHIL % 0.1 % (0.0-0.4); Basophil (Absolute #) 0.01 (0-0.4); Eosinophil % 1.3 % (0.00-5.0); Eosinophil (Absolute #) 0.13 (0-0.5); Hematocrit 33.2 % (42-50); Hemoglobin 10.5 gm/dl (12.5-18.0); Lymphocyte (Absolute #) 1.51 (1.0-4.6); Lymphocytes % 15.6 % (24.0-44.0); Mean Cell Volume 95.7 fl (78-100); Mean Corpuscular Hemoglobin 30.3 pg (26-32); Mean Corpuscular Hgb Concent. 31.6 g/dl (32-36); Mean Platelet Volume 8.4 fl (7.5-11.0); Monocyte (Absolute #) 0.78 (0.0-1.3); Platelet Count 227 K/mm3 (150-450); Red Blood Count 3.47 M/mm3 (4.1-5.6); Red Cell Distribution Width 14.1 % (11.5-14.0); White Blood Count 9.7 K/mm3 (4.0-10.5)
[2021-06-09 05:38] LABS: ALKALINE PHOSPHATASE 66 U/L (38-126); ANION GAP 13.3 MEQ/L (5-15); BLOOD UREA NITROGEN 11 mg/dL (9-20); CHLORIDE 97 mmol/L (98-107); Calcium 8.7 mg/dL (8.4-10.2); Carbon Dioxide 29 mmol/L (22-30); Creatinine 1 0.69 mg/dL (0.66-1.25); EST GLOMERULAR FILTRATION RATE > 60.0 ML/MIN; Glucose 184 mg/dL (74-106); MAGNESIUM 2.3 mg/dL (1.6-2.3); Potassium 3.8 mmol/L (3.5-5.1); SGOT/AST 22 U/L (17-59); SGPT/ALT 17 U/L (0-50); SODIUM 135 mmol/L (137-145); Total Protein 5.7 g/dL (6.3-8.2)
[2021-06-09] MEDS ORDERED: PROVENTIL 2.5 MG/3 ML NEB IH SCH (07:00)
[2021-06-09] MEDS ORDERED: NON-FORMULARY ITEM (Sumatriptan Succinate [Imitrex 50 Mg] 50 MG Tablet) PO PRN (09:19)
[2021-06-09] MEDS ORDERED: XANAX 1 MG PO PRN (09:19)
[2021-06-09] MEDS ORDERED: MEDICATION INTERVENTION MC SCH (09:45)
[2021-06-09] MEDS ORDERED: NON-FORMULARY ITEM (Fluticasone/Vilanterol [Breo Ellipta 100-25 Mcg Inh] 1 EACH Blst.W.Dev IH SCH (10:00)
[2021-06-09] MEDS ORDERED: NEURONTIN 300 MG PO SCH (10:00)
[2021-06-09] MEDS ORDERED: NON-FORMULARY ITEM (Omeprazole [Omeprazole] 40 MG Capsule.Dr) PO SCH (10:00)
[2021-06-09] MEDS ORDERED: [UNRECOGNIZED DRUG - OTHER] IH SCH (10:00)
[2021-06-09] MEDS ORDERED: Advair Hfa 230/21 Mcg COMMON CANISTER IH SCH (10:00)
[2021-06-09] MEDS ORDERED: BUDESONIDE IH SCH (10:00)
[2021-06-09] MEDS ORDERED: FORMOTEROL FUMARATE IH SCH (10:00)
[2021-06-09] MEDS ORDERED: NON-FORMULARY ITEM (Propranolol Hcl [Propranolol Hcl Er] 60 MG Cap.Sa.24h) PO SCH (10:00)
[2021-06-09] MEDS ORDERED: NON-FORMULARY ITEM (Amlodipine Besylate [Amlodipine Besylate] 10 MG Tablet) PO SCH (10:00)
[2021-06-09] MEDS ORDERED: VALPROIC ACID 250 MG PO SCH (10:00)
[2021-06-09] MEDS: MAALOX ES 30 ML UNIT DOSE PO SCH ×3 (10:21→23:21)
[2021-06-09] MEDS: Glucophage 500 MG PO SCH ×2 (10:22→23:21)
[2021-06-09] MEDS: Klor Con 10 MEQ PO SCH (10:22)
[2021-06-09] MEDS: ZOLOFT 50 MG TABLET PO SCH (10:23)
[2021-06-09] MEDS: NORVASC 5 MG PO SCH (10:23)
[2021-06-09] MEDS: Pepcid 20 MG PO SCH (10:23)
[2021-06-09] MEDS: Inderal 20 MG PO SCH (10:23)
[2021-06-09] MEDS: LASIX 20 MG PO SCH (10:24)
[2021-06-09] MEDS: Glucotrol 5 MG PO SCH (10:24)
[2021-06-09] MEDS: Protonix 40MG Tablet PO SCH (10:24)
[2021-06-09] MEDS: ECOTRIN 81 MG PO SCH (10:24)
[2021-06-09] MEDS: Catapres 0.1 MG PO SCH ×3 (10:24→23:20)
[2021-06-09] MEDS: VITAMIN B-1 100 MG PO SCH (10:25)
[2021-06-09] MEDS: NEURONTIN 300 MG PO SCH ×3 (10:25→23:21)
[2021-06-09] MEDS: FOLATE 1 MG PO SCH (10:25)
[2021-06-09] MEDS: THERAGRAN MULTIVITAMIN PO SCH (10:25)
[2021-06-09] MEDS: Depakene 250 MG/5 ML Syrup PO SCH ×2 (10:45→23:20)
--- NOTE | 2021-06-09 15:25 | XRAY ---
Indication: Multiple falls. Comparison: CT cervical spine April 19, 2021. AP, open-mouth odontoid, lateral, and swimmer's view demonstrates stable lordotic straightening, C5-T1 degenerative endplate spurring, C6-T1 degenerative disc space narrowing, and mild multilevel degenerative facet hypertrophy again left greater than right. No new/acute abnormalities.
--- NOTE | 2021-06-09 15:25 | XRAY ---
Indication: Acute mental status change. Multiple falls. Sagittal, coronal, and axial MRI brain performed using pre and post T1, T2, FLAIR, diffusion, and ADC sequences. 20 cc Dotarem contrast used. Comparison: March 02, 2021. Ventriculosulcal pattern appears symmetric. Again no acute intracranial hemorrhage, abnormal extra-axial fluid collection, or mass effect. Diffusion images remain negative for restricted signal. Postcontrast images are negative for abnormal enhancing intra-or extra-axial mass. Fourth ventricle is midline without hydrocephalus. 7/8 cranial nerve complex bilaterally symmetric. Normal flow-void signal within the major intracerebral circulation. Normal-appearing craniocervical junction and sella turcica. Again minimal fluid signal in both mastoid air cells. Paranasal sinuses are clear. Impression: 1. Again fluid signal in both mastoid air cells possibly inflammatory. 2. MRI brain with contrast exam remains negative.
--- NOTE | 2021-06-09 15:31 | XRAY ---
Indication: Weight loss. Multiple contiguous axial images obtained through the abdomen and pelvis without contrast. Comparison: June 04, 2021. Lung bases demonstrates new small bibasilar effusions and bibasilar subsegmental atelectasis right greater than left. Heart not enlarged. Several images are again degraded by respiration artifact. Noncontrasted stomach and bowel loops remain nonobstructed with stable small descending duodenal diverticulum. Stable tiny gallbladder sludge/gravel. No free fluid/air. There is minimal residual contrast in the system. Remaining liver, gallbladder, pancreas, spleen, adrenal glands, kidneys, ureters, and bladder are unremarkable. Stable minimal aortoiliac calcifications without AAA. Osseous structures intact again with mild degenerative changes throughout the spine. There are nondisplaced right 5-12 rib fractures not previously reported. Impression: 1. Right 5-12 rib fractures with new small hemothorax and right base subsegmental atelectasis. No pneumothorax. 2. Again incidental tiny gallbladder sludge/gravel and duodenal diverticulum.
[2021-06-09 17:11] LABS: Appearance CLOUDY (CLEAR); Bilirubin NEGATIVE (NEGATIVE); Blood NEGATIVE Ery/ul (0-5); Glucose 150 mg/dL (NEGATIVE); Hyaline Casts 0-2 /LPF (0-2); Ketones NEGATIVE (NEGATIVE); Leukocyte Esterase NEGATIVE (NEGATIVE); Mucus MANY /HPF (NEGATIVE); Nitrite NEGATIVE (NEGATIVE); Protein,Urine Dip 30 (Negative); RBC 0-2 /HPF (0-2); Specific Gravity 1.029 (1.005-1.025); Urobilinogen 4 mg/dL (0-1)
[2021-06-09 17:12] LABS: Bacteria NONE SEEN /HPF (NEGATIVE)
[2021-06-09] MEDS: PROVENTIL 2.5 MG/3 ML NEB IH SCH (19:26)
[2021-06-09] MEDS: Ativan 2 MG/1 ML VIAL IV PRN ×2 (21:04→22:58)
[2021-06-09] MEDS ORDERED: NON-FORMULARY ITEM (Pravastatin Sodium [Pravastatin Sodium] 20 MG Tablet) PO SCH (22:00)
--- NOTE | 2021-06-09 23:10 | XRAY ---
Indication: Low back pain. Acute mental status change. Axial, coronal, and sagittal reformatted images of the lumbar spine obtained using the raw data from CT abdomen/pelvis of the same day. Comparison: CT abdomen/pelvis June 04, 2021. Axial images of the lumbar spine negative for acute fracture, suspicious bony lesions, or spinal canal stenosis. There is stable mild multilevel broad-based disc bulge without obvious disc herniation. Facets are symmetric again with mild bilateral L5-S1 degenerative facet arthropathy. Sagittal and coronal reformatted images again demonstrate normal lumbar alignment with minimal L4-L5 disc space narrowing. No acute compression fracture or subluxation. Impression: Stable multilevel degenerative spondylosis. No new/acute abnormalities.
[2021-06-09] MEDS: ZOCOR 20MG PO SCH (23:22)
[2021-06-10] MEDS: Ativan 2 MG/1 ML VIAL IV PRN ×3 (05:55→23:23)
[2021-06-10] MEDS: PROVENTIL 2.5 MG/3 ML NEB IH SCH ×2 (07:07→19:51)
[2021-06-10] MEDS: Sodium Chloride 0.9% 1000 ML 1,000 ML IV SCH ×2 (07:48→19:46)
[2021-06-10] MEDS: ECOTRIN 81 MG PO SCH (09:02)
[2021-06-10] MEDS: NORVASC 5 MG PO SCH (09:02)
[2021-06-10] MEDS: Glucophage 500 MG PO SCH ×2 (09:03→21:04)
[2021-06-10] MEDS: Pepcid 20 MG PO SCH (09:03)
[2021-06-10] MEDS: ZOLOFT 50 MG TABLET PO SCH (09:04)
[2021-06-10] MEDS: Glucotrol 5 MG PO SCH (09:04)
[2021-06-10] MEDS: Protonix 40MG Tablet PO SCH (09:04)
[2021-06-10] MEDS: NEURONTIN 300 MG PO SCH ×3 (09:04→21:02)
[2021-06-10] MEDS: Klor Con 10 MEQ PO SCH (09:04)
[2021-06-10] MEDS: Inderal 20 MG PO SCH (09:04)
[2021-06-10] MEDS: LASIX 20 MG PO SCH (09:05)
[2021-06-10] MEDS: FOLATE 1 MG PO SCH (09:05)
[2021-06-10] MEDS: Catapres 0.1 MG PO SCH ×3 (09:05→21:03)
[2021-06-10] MEDS: VITAMIN B-1 100 MG PO SCH (09:06)
[2021-06-10] MEDS: THERAGRAN MULTIVITAMIN PO SCH (09:06)
[2021-06-10] MEDS: MAALOX ES 30 ML UNIT DOSE PO SCH ×3 (09:10→21:03)
[2021-06-10] MEDS: Depakene 250 MG/5 ML Syrup PO SCH ×2 (09:11→21:03)
[2021-06-10] MEDS: THIAMINE 200 MG/2 ML*** 100 MG, Vitamins For Infusion 10 ML INJECTION*** 10 ML, FOLNATE... IV SCH ×4 (09:31)
--- NOTE | 2021-06-10 09:57 | PCM.NOTE ---
Date and Time: 06/10/21955 Subjective Assessment: doing ok, Patient appears very depressed. Will try TELE mental health - Review of Systems Constitutional: No Fever, No Chills Eyes: No Symptoms Ears, Nose, & Throat: No Symptoms Respiratory: No Cough, No Short Of Breath Cardiac: No Chest Pain, No Edema, No Syncope Abdominal/Gastrointestinal: No Abdominal Pain, No Nausea, No Vomiting, No Charissa rrhea Genitourinary Symptoms: No Dysuria Musculoskeletal: No Back Pain, No Neck Pain Skin: No Rash Neurological: No Dizziness, No Focal Weakness, No Sensory Changes Psychological: Emotional Lability, Mood Changes Endocrine: No Symptoms Hematologic/Lymphatic: No Symptoms Immunological/Allergic: No Symptoms Objective Exam General Appearance: no apparent distress, mild distress, lethargy Neurologic Exam: alert, oriented x 3, cooperative, normal mood/affect, nml cerebellar function, sensation nml, No motor deficits Skin Exam: normal color, warm, dry Eye Exam: PERRL, EOMI, eyes nml inspection Ears, Nose, Throat Exam: normal ENT inspection, pharynx normal, moist mucous membranes Neck Exam: normal inspection, non-tender, supple, full range of motion Respiratory Exam: normal breath sounds, lungs clear, No respiratory distress Cardiovascular Exam: regular rate/rhythm, normal heart sounds Gastrointestinal/Abdomen Exam: soft, No tenderness, No mass Extremity Exam: normal inspection, normal range of motion Back Exam: normal inspection, normal range of motion, No CVA tenderness, No vertebral tenderness Male Genitalia Exam: deferred Rectal Exam: deferred OBJECTIVE DATA Vital Signs: Vital Signs - 24 hr Temp Pulse Resp BP BP Pulse Ox 06/10/21 07:45 65 18 108/64 06/10/21 07:12 67 24 92 L 06/10/21 05:55 71 22 144/56 06/10/21 04:05 97.1 F 63 20 108/59 97 06/10/21 02:12 97.1 F 65 16 103/55 95 06/10/21 00:00 97.3 F 73 18 129/67 97 06/09/21 22:58 11 L 26 H 150/60 06/09/21 21:04 77 18 130/57 06/09/21 20:00 97.9 F 77 22 130/57 96 06/09/21 19:26 87 20 95 06/09/21 16:00 97.8 F 75 23 129/82 90 L 06/09/21 12:00 97.3 F 72 20 95/55 91 L Pain Assessment - Last Documented Pain Intensity 0 Pain Scale Used 0-10 Pain Scale Intake and Output: Intake & Output 06/07/21 06/08/21 06/09/21 06/10/21 11:59 11:59 11:59 11:59 Intake Total 1301 2330 Output Total 200 1050 Balance 1101 1280 Weight 104.7 kg Lab Results: Lab Results-Last 24 Hours 06/09/21 06/09/21 06/09/21 Range/Units 04:00 11:26 16:21 POC Glucometer 217 H 115 H (74 to 106) mg/dL Hemoglobin A1c 6.20 H (4.5-6.0) % Urine Color (YELLOW) Urine Appearance (CLEAR) Urine pH (5-6) Ur Specific [place] (1.005-1.025) Urine Protein (Negative) Urine Ketones (NEGATIVE) Urine Blood (0-5) Dean/ul Urine Nitrite (NEGATIVE) Urine Bilirubin (NEGATIVE) Urine Urobilinogen (0-1) mg/dL Ur Leukocyte Esterase (NEGATIVE) Urine WBC (Auto) (0-5) /HPF Urine RBC (Auto) (0-2) /HPF U Hyaline Cast (Auto) (0-2) /LPF U Epithel Cells (Auto) (FEW) /HPF Urine Bacteria (Auto) (NEGATIVE) /HPF Urine Mucus (Auto) (NEGATIVE) /HPF Urine Culture Reflexed (NO) Urine Glucose (NEGATIVE) mg/dL 06/09/21 06/09/21 06/10/21 Range/Units 16:55 20:30 07:24 POC Glucometer 198 H 120 H (74 to 106) mg/dL Hemoglobin A1c (4.5-6.0) % Urine Color GARY (YELLOW) Urine Appearance CLOUDY (CLEAR) Urine pH 5.0 (5-6) Ur Specific [place] 1.029 (1.005-1.025) Urine Protein 30 (Negative) Urine Ketones NEGATIVE (NEGATIVE) Urine Blood NEGATIVE (0-5) Dean/ul Urine Nitrite NEGATIVE (NEGATIVE) Urine Bilirubin NEGATIVE (NEGATIVE) Urine Urobilinogen 4 (0-1) mg/dL Ur Leukocyte Esterase NEGATIVE (NEGATIVE) Urine WBC (Auto) 3-5 (0-5) /HPF Urine RBC (Auto) 0-2 (0-2) /HPF U Hyaline Cast (Auto) 0-2 (0-2) /LPF U Epithel Cells (Auto) NONE (FEW) /HPF Urine Bacteria (Auto) NONE SEEN (NEGATIVE) /HPF Urine Mucus (Auto) MANY (NEGATIVE) /HPF Urine Culture Reflexed ORDERED SEPARATELY (NO) Urine Glucose 150 (NEGATIVE) mg/dL Radiology Exams: Radiology Procedures Category Date Time Status ABDOMEN AND PELVIS W/0 CONTRAS [CT] Routine Exams 06/09/21 14:09 Completed CERVICAL SPINE (2 OR 3 VIEW) Routine Exams 06/09/21 15:13 Completed HEAD WITHOUT CONTRAST [CT] Stat Exams 06/08/21 16:46 Completed MRI BRAIN W & W/O CONTRAST [MRI] Routine Exams 06/09/21 13:31 Completed RECONSTRUCTION [CT] Routine Exams 06/09/21 17:24 Completed Assessment/Plan (1) Myoclonus Current Visit: Yes Status: Acute Code(s): G25.3 - MYOCLONUS (2) Hypomagnesemia Current Visit: Yes Status: Acute Code(s): E83.42 - HYPOMAGNESEMIA (3) Confusion Current Visit: Yes Status: Acute Code(s): R41.0 - DISORIENTATION, UNSPECIFIED (4) Essential hypertension Current Visit: No Status: Chronic Code(s): I10 - ESSENTIAL (PRIMARY) HYPERTENSION - Nursing Vital Signs Nursing Vital Signs: Initial Vital Signs Temperature 98.1 F 06/08/21 16:27 Pulse Rate 98 H 06/08/21 16:27 Respiratory Rate 22 06/08/21 16:27 Blood Pressure 137/78 06/08/21 16:27 O2 Sat by Pulse Oximetry 93 L 06/08/21 16:27 Pain Scale Pain Intensity 0 - Physical Exam Appearance: impaired insight Behavior/Eye Contact/Speech: avoids eye contact, decreased rate of speech Thoughts/Hallucinations: incoherent Skin Exam: normal color SpO2 Interpretation: normal SpO2: 97 O2 Delivery: Room Air
--- NOTE | 2021-06-10 11:56 | PCM.HP ---
History of Present Illness - Chief Complaint Chief Complaint: falls, myoclonus, asterixis Date: 06/09/21 History of Present Illness: is a 60 year old male who present to the ER for the 2nd time with c/o bliateral LE weakness ,tremors and falling/legs give way.Last week he fell and fractured ribs. Per patient's daughterSommer, he has seen [address] Norbert Underwood .He is alert and oriented but has trouble with memory for details and word finding.Magnesium is low =1.2.Teleneurolgy in ER,testing pending for labs,MRI brain and C-spine.He is admitted to [facility] for further work up and PT. PMHx DM2,HTN,HLD,migraines,anxiety/depression. - Review of Systems Constitutional: Weight Loss Eyes: No Symptoms Ears, Nose, & Throat: No Symptoms Respiratory: No Symptoms Cardiac: No Symptoms Abdominal/Gastrointestinal: No Symptoms Musculoskeletal: Fall, Other (weakness in legs started several months ago and getting worse) Neurological: Gait Changes, Tremors, Other (neuropathy) Psychological: Anxiety, Depression Medications & Allergies Home Medications: Home Medication List Clonidine HCl 0.1 mg [Catapres 0.1 MG] 0.1 mg PO TID 09/11/17 [History Confirmed 06/09/21] Furosemide 20 mg [Lasix 20 mg] 20 mg PO DAILY 02/14/20 [History Confirmed 06/08/21] Gabapentin 600 mg PO TID 02/14/20 [History Confirmed 06/08/21] Metformin HCl 1,000 mg PO BID 02/14/20 [History Confirmed 06/08/21] Potassium Chloride 10 Meq Tab* [Klor Con 10 MEQ] 10 meq PO DAILY 02/14/20 [History Confirmed 06/09/21] Pravastatin Sodium 20 mg PO HS 02/14/20 [History Confirmed 06/09/21] SUMAtriptan succinate [Imitrex 50 mg] 50 mg PO UD PRN 06/04/20 [History Confirmed 06/08/21] ALPRAZolam 1 MG [Xanax 1 mg] 1 mg PO BID PRN PRN 02/07/21 [History Confirmed 06/08/21] AMITRIPTYLINE HCL 50 mg Tab [AMITRIPTYLINE HCL 50 mg Tablet] 150 mg PO DAILY 02/07/21 [History Confirmed 06/09/21] Amlodipine Besylate 10 mg PO DAILY 02/07/21 [History Confirmed 06/08/21] Aspirin EC 81 mg [Ecotrin 81 mg] 81 mg PO DAILY 02/07/21 [History Confirmed 06/08/21] Famotidine 20 mg [Pepcid 20 MG] 20 mg PO DAILY 02/07/21 [History Confirmed 06/08/21] Omeprazole 40 mg PO DAILY 02/07/21 [History Confirmed 06/08/21] Propranolol HCl [Propranolol HCl ER] 60 mg PO DAILY 02/07/21 [History Confirmed 06/08/21] Sertraline HCl 50 mg [Zoloft 50 mg Tablet] 50 mg PO DAILY 02/07/21 [History Confirmed 06/08/21] Budesonide/Formoterol Fumarate [Budesonide-Formoterol 160-4.5] 2 puff IH BID 03/02/21 [History Confirmed 06/08/21] Fluticasone/Vilanterol [Breo Ellipta 100-25 Mcg INH] 1 puff IH DAILY 06/09/21 [History Confirmed 06/09/21] Glipizide 5 mg [Glucotrol 5 MG] 5 mg PO DAILY 06/09/21 [History Confirmed 06/09/21] Mag Hydrox/Aluminum Hyd/Simeth [Mylanta Maximum Strength Pkt] 10 ml PO TID 06/09/21 [History Confirmed 06/09/21] Valproic Acid 500 mg PO BID 06/09/21 [History Confirmed 06/09/21] Allergies/Adverse Reactions: Allergies Allergy/AdvReac Type Severity Reaction Status Date / Time Penicillins Allergy Verified 06/09/21 02:01 - Past Medical History Past Medical History: Yes Neurological History: Migraines ENT History: No Pertinent History Cardiac History: Hypertension Respiratory History: Asthma, Sleep Apnea Endocrine Medical History: Diabetes Type II, Other Musculoskelatal History: Osteoarthritis GI Medical History: No Pertinent History History: No Pertinent History Pyscho-Social History: Anxiety, Depression, Panic Disorder, Other Male Reproductive Disorders: No Pertinent History Comment: degenerative OA, pancreatitis - Past Surgical History Past Surgical History: Yes Neuro Surgical History: No Pertinent History Cardiac History: No Pertinent History Respiratory Surgery: No Pertinent History GI Surgical History: No Pertinent History Genitourinary Surgical Hx: No Pertinent History Musculskeletal Surgical Hx: Other Male Surgical History: No Pertinent History Other Surgical History: cyst to tailbone. rt shoulder 09/01. hernia repair 2020 - Social History Smoking Status: Never smoker Exposure to second hand smoke: No Alcohol: None Drug Use: marijuana Significant Family History: no pertinent family hx - Physical Exam Vital Signs: Vital Signs - 24 hr Temp Pulse Resp BP BP Pulse Ox 06/10/21 07:45 65 18 108/64 06/10/21 07:12 67 24 92 L 06/10/21 05:55 71 22 144/56 06/10/21 04:05 97.1 F 63 20 108/59 97 06/10/21 02:12 97.1 F 65 16 103/55 95 06/10/21 00:00 97.3 F 73 18 129/67 97 06/09/21 22:58 11 L 26 H 150/60 06/09/21 21:04 77 18 130/57 06/09/21 20:00 97.9 F 77 22 130/57 96 06/09/21 19:26 87 20 95 06/09/21 16:00 97.8 F 75 23 129/82 90 L 06/09/21 12:00 97.3 F 72 20 95/55 91 L General Appearance: mild distress (unable to stand and stay standing without assistance) Neurologic Exam: alert, oriented x 3, cooperative, normal mood/affect, motor weakness (bilateral LE with muscle atrophy all LE muscles), abnormal gait Eye Exam: eyes nml inspection Ears, Nose, Throat Exam: normal ENT inspection Neck Exam: normal inspection Respiratory Exam: normal breath sounds Cardiovascular Exam: regular rate/rhythm, other (no edema) Gastrointestinal/Abdomen Exam: soft (nontender) Rectal Exam: not done Back Exam: other (tender righ ant lateral rib cage) Extremity Exam: other (weakness and muscle atrophy bilateral LE all muscles) Skin Exam: normal color, warm, dry Results - Labs Lab/Micro Results: Lab Results-Last 24 Hours 06/09/21 06/09/21 06/09/21 Range/Units 16:21 16:55 20:30 POC Glucometer 115 H 198 H (74 to 106) mg/dL Urine Color GARY (YELLOW) Urine Appearance CLOUDY (CLEAR) Urine pH 5.0 (5-6) Ur Specific [place] 1.029 (1.005-1.025) Urine Protein 30 (Negative) Urine Ketones NEGATIVE (NEGATIVE) Urine Blood NEGATIVE (0-5) Dean/ul Urine Nitrite NEGATIVE (NEGATIVE) Urine Bilirubin NEGATIVE (NEGATIVE) Urine Urobilinogen 4 (0-1) mg/dL Ur Leukocyte Esterase NEGATIVE (NEGATIVE) Urine WBC (Auto) 3-5 (0-5) /HPF Urine RBC (Auto) 0-2 (0-2) /HPF U Hyaline Cast (Auto) 0-2 (0-2) /LPF U Epithel Cells (Auto) NONE (FEW) /HPF Urine Bacteria (Auto) NONE SEEN (NEGATIVE) /HPF Urine Mucus (Auto) MANY (NEGATIVE) /HPF Urine Culture Reflexed ORDERED SEPARATELY (NO) Urine Glucose 150 (NEGATIVE) mg/dL 06/10/21 06/10/21 Range/Units 07:24 11:28 POC Glucometer 120 H 125 H (74 to 106) mg/dL Urine Color (YELLOW) Urine Appearance (CLEAR) Urine pH (5-6) Ur Specific [place] (1.005-1.025) Urine Protein (Negative) Urine Ketones (NEGATIVE) Urine Blood (0-5) Dean/ul Urine Nitrite (NEGATIVE) Urine Bilirubin (NEGATIVE) Urine Urobilinogen (0-1) mg/dL Ur Leukocyte Esterase (NEGATIVE) Urine WBC (Auto) (0-5) /HPF Urine RBC (Auto) (0-2) /HPF U Hyaline Cast (Auto) (0-2) /LPF U Epithel Cells (Auto) (FEW) /HPF Urine Bacteria (Auto) (NEGATIVE) /HPF Urine Mucus (Auto) (NEGATIVE) /HPF Urine Culture Reflexed (NO) Urine Glucose (NEGATIVE) mg/dL Microbiology 06/09/21 16:58 Urine Culture - Preliminary Catherized NO GROWTH TO DATE Accuchecks Date 06/10/21 Date 06/09/21 - Radiology Impressions Radiology Exams & Impressions: Radiology Procedures Category Date Time Status ABDOMEN AND PELVIS W/0 CONTRAS [CT] Routine Exams 06/09/21 14:09 Completed CERVICAL SPINE (2 OR 3 VIEW) Routine Exams 06/09/21 15:13 Completed HEAD WITHOUT CONTRAST [CT] Stat Exams 06/08/21 16:46 Completed MRI BRAIN W & W/O CONTRAST [MRI] Routine Exams 06/09/21 13:31 Completed RECONSTRUCTION [CT] Routine Exams 06/09/21 17:24 Completed Assessment/Plan (1) Hypomagnesemia Current Visit: Yes Status: Acute Assessment & Plan: received IV magnesium-repeat levels Code(s): E83.42 - HYPOMAGNESEMIA (2) Repeated falls Current Visit: Yes Status: Acute Code(s): R29.6 - REPEATED FALLS (3) Muscle atrophy Current Visit: Yes Status: Acute (4) Confusion Current Visit: Yes Status: Acute Assessment & Plan: difficulty with communication/word search Code(s): R41.0 - DISORIENTATION, UNSPECIFIED (5) HTN (hypertension) Current Visit: Yes Status: Acute Assessment & Plan: moniter Code(s): I10 - ESSENTIAL (PRIMARY) HYPERTENSION (6) Asterixis Current Visit: Yes Status: Acute Code(s): R27.8 - OTHER LACK OF COORDINATION (7) DM2 (diabetes mellitus, type 2) Current Visit: Yes Status: Chronic Qualifiers: Diabetes mellitus 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
[2021-06-10 18:31] LABS: Amphetamine,Urine NEGATIVE (NEGATIVE); Barbiturate,Urine NEGATIVE (NEGATIVE); Benzodiazepine,Urine NEGATIVE (NEGATIVE); Cocaine,Urine NEGATIVE (NEGATIVE); Methadone,Urine NEGATIVE (NEGATIVE); Opiate,Urine POSITIVE (NEGATIVE); PCP,Urine NEGATIVE (NEGATIVE); THC,Urine POSITIVE (NEGATIVE)
[2021-06-10] MEDS: ZOCOR 20MG PO SCH (21:02)
[2021-06-11] MEDS ORDERED: MORPHINE SULFATE 2 MG INJ ONE (00:48)
[2021-06-11] MEDS: Ativan 2 MG/1 ML VIAL IV PRN (00:58)
[2021-06-11] MEDS: MORPHINE SULFATE 4 MG INJ IV PRN (00:59)
[2021-06-11] MEDS: Sodium Chloride 0.9% 1000 ML 1,000 ML IV SCH ×2 (05:53→15:55)
[2021-06-11] MEDS: PROVENTIL 2.5 MG/3 ML NEB IH SCH ×2 (06:49→19:09)
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
[2021-06-11] MEDS: Catapres 0.1 MG PO SCH ×3 (09:10→21:18)
[2021-06-11] MEDS: MAALOX ES 30 ML UNIT DOSE PO SCH ×3 (09:10→21:19)
[2021-06-11] MEDS: LASIX 20 MG PO SCH (09:10)
[2021-06-11] MEDS: Pepcid 20 MG PO SCH (09:11)
[2021-06-11] MEDS: NORVASC 5 MG PO SCH (09:11)
[2021-06-11] MEDS: Klor Con 10 MEQ PO SCH (09:11)
[2021-06-11] MEDS: VITAMIN B-1 100 MG PO SCH (09:11)
[2021-06-11] MEDS: THERAGRAN MULTIVITAMIN PO SCH (09:12)
[2021-06-11] MEDS: Protonix 40MG Tablet PO SCH (09:12)
[2021-06-11] MEDS: ECOTRIN 81 MG PO SCH (09:12)
[2021-06-11] MEDS: FOLATE 1 MG PO SCH (09:12)
[2021-06-11] MEDS: ZOLOFT 50 MG TABLET PO SCH (09:12)
[2021-06-11] MEDS: Depakene 250 MG/5 ML Syrup PO SCH ×2 (09:15→21:18)
[2021-06-11] MEDS: Glucotrol 5 MG PO SCH (09:19)
[2021-06-11] MEDS: Glucophage 500 MG PO SCH ×2 (09:43→21:18)
[2021-06-11] MEDS: NEURONTIN 300 MG PO SCH ×3 (10:44→21:19)
[2021-06-11] MEDS: NON-FORMULARY ITEM PO SCH (10:45)
[2021-06-11] MEDS: ZOCOR 20MG PO SCH (21:19)
[2021-06-11] MEDS: ATARAX 25 MG PO PRN (21:22)
[2021-06-12] MEDS: Sodium Chloride 0.9% 1000 ML 1,000 ML IV SCH (01:04)
[2021-06-12] MEDS: PROVENTIL 2.5 MG/3 ML NEB IH SCH ×2 (06:51→18:47)
[2021-06-12] MEDS ORDERED: MORPHINE SULFATE 2 MG INJ IV PRN (07:29)
[2021-06-12 07:50] LABS: Absolute Neutrophil Ct (ANC) 4.81 (1.4-6.9); BASOPHIL % 0.3 % (0.0-0.4); Basophil (Absolute #) 0.02 (0-0.4); Eosinophil % 2.6 % (0.00-5.0); Eosinophil (Absolute #) 0.17 (0-0.5); Hematocrit 31.9 % (42-50); Hemoglobin 10.1 gm/dl (12.5-18.0); Lymphocyte (Absolute #) 1.03 (1.0-4.6); Lymphocytes % 15.9 % (24.0-44.0); Mean Corpuscular Hemoglobin 30.7 pg (26-32); Mean Corpuscular Hgb Concent. 31.7 g/dl (32-36); Mean Platelet Volume 8.8 fl (7.5-11.0); Monocyte (Absolute #) 0.46 (0.0-1.3); Monocytes % 7.1 % (0.0-12.0); Neutrophil % 74.1 % (36.0-66.0); Platelet Count 286 K/mm3 (150-450); Red Blood Count 3.29 M/mm3 (4.1-5.6); Red Cell Distribution Width 13.9 % (11.5-14.0); White Blood Count 6.5 K/mm3 (4.0-10.5)
[2021-06-12 09:18] LABS: ALBUMIN 3.1 g/dL (3.5-5.0); ALKALINE PHOSPHATASE 103 U/L (38-126); ANION GAP 11.9 MEQ/L (5-15); BLOOD UREA NITROGEN 12 mg/dL (9-20); CHLORIDE 103 mmol/L (98-107); Calcium 8.3 mg/dL (8.4-10.2); Carbon Dioxide 27 mmol/L (22-30); Creatinine 1 0.61 mg/dL (0.66-1.25); EST GLOMERULAR FILTRATION RATE > 60.0 ML/MIN; Glucose 160 mg/dL (74-106); Potassium 4.1 mmol/L (3.5-5.1); SGOT/AST 63 U/L (17-59); SGPT/ALT 28 U/L (0-50); SODIUM 137 mmol/L (137-145); Total Protein 5.8 g/dL (6.3-8.2)
[2021-06-12] MEDS: THERAGRAN MULTIVITAMIN PO SCH (12:02)
[2021-06-12] MEDS: ECOTRIN 81 MG PO SCH (12:02)
[2021-06-12] MEDS: VITAMIN B-1 100 MG PO SCH (12:03)
[2021-06-12] MEDS: NEURONTIN 300 MG PO SCH ×3 (12:03→21:03)
[2021-06-12] MEDS: FOLATE 1 MG PO SCH (12:03)
[2021-06-12] MEDS: Protonix 40MG Tablet PO SCH (12:03)
[2021-06-12] MEDS: Klor Con 10 MEQ PO SCH (12:03)
[2021-06-12] MEDS: ZOLOFT 50 MG TABLET PO SCH (12:03)
[2021-06-12] MEDS: Pepcid 20 MG PO SCH (12:03)
[2021-06-12] MEDS: Glucotrol 5 MG PO SCH (12:04)
[2021-06-12] MEDS: Glucophage 500 MG PO SCH ×2 (12:04→21:03)
[2021-06-12] MEDS: NORVASC 5 MG PO SCH (12:07)
[2021-06-12] MEDS: MAALOX ES 30 ML UNIT DOSE PO SCH ×4 (12:07→21:03)
[2021-06-12] MEDS: Catapres 0.1 MG PO SCH ×3 (12:07→21:03)
[2021-06-12] MEDS: LASIX 20 MG PO SCH (12:08)
[2021-06-12] MEDS: Depakene 250 MG/5 ML Syrup PO SCH ×2 (12:10→21:03)
[2021-06-12] MEDS: NON-FORMULARY ITEM PO SCH (12:11)
[2021-06-12] MEDS: ATARAX 25 MG PO PRN ×2 (14:21→21:03)
[2021-06-12] MEDS: ZOCOR 20MG PO SCH (21:03)
[2021-06-13] MEDS ORDERED: MORPHINE SULFATE 4 MG INJ IV PRN (07:21)
[2021-06-13] MEDS: PROVENTIL 2.5 MG/3 ML NEB IH SCH (07:23)
[2021-06-13] MEDS ORDERED: Glucotrol 5 MG PO SCH (08:00)
[2021-06-13] MEDS ORDERED: Glucophage 500 MG PO SCH (08:00)
[2021-06-13 08:05] VITALS: BP 134/62; PULSE 70; O2SAT 93
[2021-06-13] MEDS: ECOTRIN 81 MG PO SCH (11:43)
[2021-06-13] MEDS: FOLATE 1 MG PO SCH (11:44)
[2021-06-13] MEDS: Pepcid 20 MG PO SCH (11:44)
[2021-06-13] MEDS: LASIX 20 MG PO SCH (11:44)
[2021-06-13] MEDS: Protonix 40MG Tablet PO SCH (11:44)
[2021-06-13] MEDS: VITAMIN B-1 100 MG PO SCH (11:44)
[2021-06-13] MEDS: NORVASC 5 MG PO SCH (11:44)
[2021-06-13] MEDS: Klor Con 10 MEQ PO SCH (11:44)
[2021-06-13] MEDS: THERAGRAN MULTIVITAMIN PO SCH (11:44)
[2021-06-13] MEDS: Catapres 0.1 MG PO SCH (11:44)
[2021-06-13] MEDS: ZOLOFT 50 MG TABLET PO SCH (11:44)
[2021-06-13] MEDS: Depakene 250 MG/5 ML Syrup PO SCH (11:45)
[2021-06-13] MEDS: MAALOX ES 30 ML UNIT DOSE PO SCH (11:45)
[2021-06-13] MEDS: NON-FORMULARY ITEM PO SCH (11:45)
[2021-06-13] MEDS: NEURONTIN 300 MG PO SCH (11:45)
== END 2021-06-13 12:15 ==
LOC: ED 16:24 → MED SURG 22:06
PROVIDERS: ADMIT Family Medicine; ATTEND Family Medicine
DX: E83.42 Hypomagnesemia (principal); E11.9 Type 2 diabetes mellitus without complications; I10 Essential (primary) hypertension; W19.XXXA Unspecified fall, initial encounter; R27.8 Other lack of coordination; G25.3 Myoclonus; R41.0 Disorientation, unspecified; G93.40 Encephalopathy, unspecified; G62.9 Polyneuropathy, unspecified; R53.1 Weakness; M62.50 Muscle wasting and atrophy, not elsewhere classified, unspecified site; Z20.822 Contact with and (suspected) exposure to COVID-19; Z79.4 Long term (current) use of insulin; Z79.899 Other long term (current) drug therapy
CPT/HCPCS: 36000; 36415; 70450; 70553; 72040; 74176; 76376; 80053; 80164; 80307; 81001; 82373; 82607; 82947; 83036; 83090; 83735; 84425; 84439; 84443; 84484; 85025; 85652; 86038; 86140; 87086; 93005; 93041; 93268; 94640; 94760; 94762; 97161; 97530; 99285; G0378; U0003; 90791; J2060; J2270; J3475; J7609; Q3014; A9270-GY; G0480

== ENCOUNTER 2021-08-31 11:26 | Emergency (ER) | payer MEDICAID ==
[2021-08-31] MEDS ORDERED: DECADRON 10MG INJ. IV ONE (12:07)
--- NOTE | 2021-08-31 12:29 | ERPHSYRPT ---
- History of Present Illness Time Seen by Provider: 08/31/21 11:57 Source: patient Exam Limitations: no limitations Patient Subjective Stated Complaint: "4 days ago I went to [facility] d/t sob and tested postive for covid and have been getting more and more sob since." "I do have a history of asthma also" I did not use my inhalers today". Triage Nursing Assessment: AAox3, ambulatory, c/o increased sob past few days. Tested positve for covid 4 days ago. Has h/o asthma. uses inhalers but not today. Resp easy at rest, labored when up walking. color good, talkative without difficutly. Physician History: 60 years old male with history of asthma, diabetes mellitus presented in the ER with 1 week history of gradually increasing shortness of breath initially with activity and now feeling some shortness of breath even at resting. Patient reports he started to have cough congestion almost a week ago, was tested p ositive for COVID-19 earlier this week. He is vaccinated with Materna 2 doses. Patient oxygen saturation is 98% on room air although he is complaining of shortness of breath which is more deep breathing. Not tachypneic or tachycardic. No fever or chills reported but generalized weakness fatigue tiredness and body aches. Timing/Duration: week(s) (1), constant, gradual onset, worse Activities at Onset: activity, rest Severity of Dyspnea-Max: moderate Severity of Dyspnea-Current: moderate Modifying Factors: Improves With: albuterol inhaler. Worsens With: activity, co ughing, deep breath, exertion Associated Symptoms: cough, wheezing, tightness, No productive cough Allergies/Adverse Reactions: Penicillins Allergy (Verified 06/09/21 02:01) Home Medications: Clonidine HCl 0.1 mg [Catapres 0.1 MG] 0.1 mg PO TID 09/11/17 [History] Metformin HCl 1,000 mg PO BID 02/14/20 [History] Potassium Chloride 10 Meq Tab* [Klor Con 10 MEQ] 10 meq PO DAILY 02/14/20 [History] Amlodipine Besylate 10 mg PO DAILY 02/07/21 [History] Famotidine 20 mg [Pepcid 20 MG] 20 mg PO DAILY 02/07/21 [History] Budesonide/Formoterol Fumarate [Budesonide-Formoterol 160-4.5] 2 puff IH BID 03/02/21 [History] Fluticasone/Vilanterol [Breo Ellipta 100-25 Mcg INH] 1 puff IH DAILY 06/09/21 [History] Glipizide 5 mg [Glucotrol 5 MG] 5 mg PO DAILY 06/09/21 [History] Mag Hydrox/Aluminum Hyd/Simeth [Mylanta Maximum Strength Pkt] 10 ml PO TID 06/09/21 [History] Hx Tetanus, Diphtheria Vaccination/Date Given: Yes Hx Influenza Vaccination/Date Given: Yes Hx Pneumococcal Vaccination/Date Given: No Immunizations Up to Date: Yes Travel Risk - International Travel Have you traveled outside of the country in past 3 weeks: No - Coronavirus Screening Are you exhibiting any of the following symptoms?: Yes Symptoms: Shortness of Breath Close contact with a COVID-19 positive Pt in past 14-21 Days: Yes - Vaccine Status Have you recieved a Covid-19 vaccination: Yes 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 - Vaccination Dates Date of 2cond Vaccination (if applicable): 01/02/21 - Review of Systems Constitutional: Fatigue, Weakness Eyes: No Symptoms Ears, Nose, & Throat: Nose Congestion Respiratory: Cough, Dyspnea, Dyspnea on Exertion (JASON), Wheezing Cardiac: No Symptoms Abdominal/Gastrointestinal: No Symptoms Genitourinary Symptoms: No Symptoms Musculoskeletal: Myalgias Neurological: Headache Psychological: No Symptoms Endocrine: No Symptoms Hematologic/Lymphatic: No Symptoms Immunological/Allergic: No Symptoms - Past Medical History Pertinent Past Medical History: Yes Neurological History: Migraines ENT History: No Pertinent History Cardiac History: Hypertension Respiratory History: Asthma, Sleep Apnea Endocrine Medical History: Diabetes Type II, Other Musculoskeletal History: Osteoarthritis GI Medical History: No Pertinent History History: No Pertinent History Psycho-Social History: Anxiety, Depression, Panic Disorder, Other Male Reproductive Disorders: No Pertinent History Other Medical History: degenerative OA, pancreatitis - Past Surgical History Past Surgical History: Yes Neuro Surgical History: No Pertinent History Cardiac: No Pertinent History Respiratory: No Pertinent History Gastrointestinal: No Pertinent History Genitourinary: No Pertinent History Musculoskeletal: Other Male Surgical History: No Pertinent History Other Surgical History: cyst to tailbone. rt shoulder 09/01. hernia repair 2020 - Social History Smoking Status: Never smoker Exposure to second hand smoke: No Drug Use: marijuana Patient Lives Alone: Yes Significant Family History: no pertinent family hx - Nursing Vital Signs Nursing Vital Signs: Initial Vital Signs Temperature 97.5 F 08/31/21 11:32 Pulse Rate 85 08/31/21 11:32 Respiratory Rate 22 08/31/21 11:32 Blood Pressure 156/86 08/31/21 11:32 O2 Sat by Pulse Oximetry 98 08/31/21 11:32 Pain Scale Pain Intensity 4 - Physical Exam General Appearance: no apparent distress, alert Eye Exam: PERRL/EOMI, eyes nml inspection Ears, Nose, Throat Exam: nasal congestion, pharyngeal erythema Neck Exam: normal inspection, non-tender, supple, full range of motion Respiratory Exam: normal breath sounds, lungs clear Cardiovascular/Chest Exam: normal heart sounds, regular rate/rhythm Abdominal/Gastrointestinal Exam: soft, normal bowel sounds, No tenderness Extremity Exam: non-tender, normal range of motion Neurologic Exam: alert, oriented x 3, cooperative Skin Exam: normal color SpO2 Interpretation: normal SpO2: 98 O2 Delivery: Room Air - Course EKG Interpreted by Me: RATE (85), Sinus Rhythm, NORMAL AXIS, NORMAL INTERVALS, Non-specific ST Changes, Other (Nonspecific T wave changes) Ordered Tests: Medication Summary Discontinued Medications Generic Name Dose Route Start Last Admin Trade Name Raven PRN Reason Stop Dose Admin Acetaminophen 1,000 mg 08/31/21 14:11 08/31/21 14:20 Acetaminophen 500 Mg Tablet PO 09/30/21 14:10 1,000 mg Q4H PRN PRN Administration HEADACHE Acetaminophen Confirm 08/31/21 14:20 Acetaminophen 500 Mg Tablet Administered 08/31/21 14:21 Dose 1,000 mg .ROUTE .STK-MED ONE Dexamethasone 8 mg 08/31/21 12:57 08/31/21 13:17 Dexamethasone 4 Mg Tablet PO 08/31/21 12:58 8 mg STAT ONE Administration Dexamethasone Sodium Phosphate 6 mg 08/31/21 12:07 08/31/21 12:58 Dexamethasone Sod Phosphate 10 Mg/Ml IV 08/31/21 12:08 Not Given STAT ONE Lab/Rad Data: Laboratory Result Diagrams 08/31/21 12:25 08/31/21 12:25 Laboratory Results 08/31/21 08/31/21 08/31/21 Range/Units 15:29 14:31 12:25 WBC (4.0-10.5) K/mm3 RBC (4.1-5.6) M/mm3 Hgb (12.5-18.0) gm/dl Hct (42-50) % MCV (78-100) fl MCH (26-32) pg MCHC (32-36) g/dl RDW (11.5-14.0) % Plt Count (150-450) K/mm3 MPV (7.5-11.0) fl Gran % (36.0-66.0) % Eos # (Auto) (0-0.5) Absolute Lymphs (auto) (1.0-4.6) Absolute Monos (auto) (0.0-1.3) Lymphocytes % (24.0-44.0) % Monocytes % (0.0-12.0) % Eosinophils % (0.00-5.0) % Basophils % (0.0-0.4) % Absolute Granulocytes (1.4-6.9) Basophils # (0-0.4) D-Dimer (215-500) ng/mL Sodium (137-145) mmol/L Potassium (3.5-5.1) mmol/L Chloride (98-107) mmol/L Carbon Dioxide (22-30) mmol/L Anion Gap (5-15) MEQ/L BUN (9-20) mg/dL Creatinine (0.66-1.25) mg/dL Estimated GFR ML/MIN Glucose (74-106) mg/dL Lactic Acid 2.9 H (0.4-2.0) Calcium (8.4-10.2) mg/dL Magnesium (1.6-2.3) mg/dL Total Bilirubin (0.2-1.3) mg/dL AST (17-59) U/L ALT (0-50) U/L Alkaline Phosphatase (38-126) U/L Troponin I < 0.012 < 0.012 (0.000-0.034) ng/mL NT-Pro-B Natriuret Pep (0-900) pg/mL Serum Total Protein (6.3-8.2) g/dL Albumin (3.5-5.0) g/dL 08/31/21 08/31/21 08/31/21 Range/Units 12:25 12:25 12:25 WBC (4.0-10.5) K/mm3 RBC (4.1-5.6) M/mm3 Hgb (12.5-18.0) gm/dl Hct (42-50) % MCV (78-100) fl MCH (26-32) pg MCHC (32-36) g/dl RDW (11.5-14.0) % Plt Count (150-450) K/mm3 MPV (7.5-11.0) fl Gran % (36.0-66.0) % Eos # (Auto) (0-0.5) Absolute Lymphs (auto) (1.0-4.6) Absolute Monos (auto) (0.0-1.3) Lymphocytes % (24.0-44.0) % Monocytes % (0.0-12.0) % Eosinophils % (0.00-5.0) % Basophils % (0.0-0.4) % Absolute Granulocytes (1.4-6.9) Basophils # (0-0.4) D-Dimer 333 (215-500) ng/mL Sodium 135 L (137-145) mmol/L Potassium 4.5 (3.5-5.1) mmol/L Chloride 97 L (98-107) mmol/L Carbon Dioxide 26 (22-30) mmol/L Anion Gap 16.1 H (5-15) MEQ/L BUN 10 (9-20) mg/dL Creatinine 0.60 L (0.66-1.25) mg/dL Estimated GFR > 60.0 ML/MIN Glucose 152 H (74-106) mg/dL Lactic Acid 2.1 H (0.4-2.0) Calcium 9.2 (8.4-10.2) mg/dL Magnesium 1.6 (1.6-2.3) mg/dL Total Bilirubin 0.40 (0.2-1.3) mg/dL AST 18 (17-59) U/L ALT 9 (0-50) U/L Alkaline Phosphatase 69 (38-126) U/L Troponin I (0.000-0.034) ng/mL NT-Pro-B Natriuret Pep 227 (0-900) pg/mL Serum Total Protein 7.1 (6.3-8.2) g/dL Albumin 4.3 (3.5-5.0) g/dL 08/31/21 Range/Units 12:25 WBC 7.0 (4.0-10.5) K/mm3 RBC 4.62 (4.1-5.6) M/mm3 Hgb 13.4 (12.5-18.0) gm/dl Hct 41.1 L (42-50) % MCV 89.0 (78-100) fl MCH 29.0 (26-32) pg MCHC 32.6 (32-36) g/dl RDW 15.1 H (11.5-14.0) % Plt Count 152 (150-450) K/mm3 MPV 9.3 (7.5-11.0) fl Gran % 71.9 H (36.0-66.0) % Eos # (Auto) 0.24 (0-0.5) Absolute Lymphs (auto) 1.33 (1.0-4.6) Absolute Monos (auto) 0.36 (0.0-1.3) Lymphocytes % 19.1 L (24.0-44.0) % Monocytes % 5.2 (0.0-12.0) % Eosinophils % 3.5 (0.00-5.0) % Basophils % 0.3 (0.0-0.4) % Absolute Granulocytes 5.00 (1.4-6.9) Basophils # 0.02 (0-0.4) D-Dimer (215-500) ng/mL Sodium (137-145) mmol/L Potassium (3.5-5.1) mmol/L Chloride (98-107) mmol/L Carbon Dioxide (22-30) mmol/L Anion Gap (5-15) MEQ/L BUN (9-20) mg/dL Creatinine (0.66-1.25) mg/dL Estimated GFR ML/MIN Glucose (74-106) mg/dL Lactic Acid (0.4-2.0) Calcium (8.4-10.2) mg/dL Magnesium (1.6-2.3) mg/dL Total Bilirubin (0.2-1.3) mg/dL AST (17-59) U/L ALT (0-50) U/L Alkaline Phosphatase (38-126) U/L Troponin I (0.000-0.034) ng/mL NT-Pro-B Natriuret Pep (0-900) pg/mL Serum Total Protein (6.3-8.2) g/dL Albumin (3.5-5.0) g/dL - Progress Progress: improved Air Movement: good Progress Note: 08/31/21 15:52 60 years old Covid positive is evaluated for shortness of breath. Grossly u nremarkable work-up including chest x-ray and D-dimer. Given Decadron here along with Tylenol, on reevaluation feeling better. Patient is maintaining oxygen saturation at room air around 96%, do not think needs supplemental oxygen or any other work-up and recommended supportive care and will give a short course of steroid to go home. Patient does not need to be admitted and recommended outpatient follow-up. Discussed signs symptoms of worsening needing return to ER which he seems understanding. Stable for discharge. Blood Culture(s) Obtained: Yes Antibiotics given: No Counseled pt/family regarding: lab results, diagnosis, need for follow-up, rad results - Departure Departure Disposition: Home Clinical Impression: Viral syndrome, COVID-19 Condition: Stable Critical Care Time: No Referrals: LARRY RESTREPO NP [Primary Care Provider] - Follow up/PCP as directed (In 1-2 days for reevaluation) Instructions: Coronavirus Disease 2019 (COVID-19) Additional Instructions: Continue using your inhaler as recommended. Take Tylenol as needed for aches pain/fever chills. Follow-up with primary care for reevaluation. Return to ER for worsening cough, persistent high-grade fever, difficulty breathing etc. Prescriptions: Dexamethasone [Decadron] 6 mg PO DAILY #5 tablet
[2021-08-31 12:45] LABS: Basophil (Absolute #) 0.02 (0-0.4); Eosinophil % 3.5 % (0.00-5.0); Eosinophil (Absolute #) 0.24 (0-0.5); Hematocrit 41.1 % (42-50); Hemoglobin 13.4 gm/dl (12.5-18.0); Lymphocyte (Absolute #) 1.33 (1.0-4.6); Lymphocytes % 19.1 % (24.0-44.0); Mean Corpuscular Hgb Concent. 32.6 g/dl (32-36); Mean Platelet Volume 9.3 fl (7.5-11.0); Monocyte (Absolute #) 0.36 (0.0-1.3); Monocytes % 5.2 % (0.0-12.0); Neutrophil % 71.9 % (36.0-66.0); Platelet Count 152 K/mm3 (150-450); Red Blood Count 4.62 M/mm3 (4.1-5.6); Red Cell Distribution Width 15.1 % (11.5-14.0)
[2021-08-31] MEDS ORDERED: Decadron 4 MG PO ONE (12:57)
[2021-08-31 12:59] LABS: ALBUMIN 4.3 g/dL (3.5-5.0); ALKALINE PHOSPHATASE 69 U/L (38-126); ANION GAP 16.1 MEQ/L (5-15); BLOOD UREA NITROGEN 10 mg/dL (9-20); CHLORIDE 97 mmol/L (98-107); Calcium 9.2 mg/dL (8.4-10.2); Carbon Dioxide 26 mmol/L (22-30); EST GLOMERULAR FILTRATION RATE > 60.0 ML/MIN; Glucose 152 mg/dL (74-106); MAGNESIUM 1.6 mg/dL (1.6-2.3); NT PRO BNP 227 pg/mL (0-900); Potassium 4.5 mmol/L (3.5-5.1); SGOT/AST 18 U/L (17-59); SGPT/ALT 9 U/L (0-50); SODIUM 135 mmol/L (137-145); Total Protein 7.1 g/dL (6.3-8.2)
[2021-08-31] MEDS ORDERED: TYLENOL EXTRA STRENGTH 500 MG PO PRN (14:11)
[2021-08-31 14:13] VITALS: BP 144/76; PULSE 78
[2021-08-31] MEDS ORDERED: TYLENOL EXTRA STRENGTH 500 MG ONE (14:20)
--- NOTE | 2021-08-31 15:42 | XRAY ---
Indication: Short of breath. Comparison: March 01, 2021. Portable chest slightly rotated and remains inflated and clear. Heart not enlarged. No new cardiopulmonary abnormalities. Bony thorax again demonstrates mild degenerative changes and new healing right 7-9 lateral rib fractures.
[2021-08-31 15:56] VITALS: O2SAT 98
== END 2021-08-31 16:08 | disposition home or self-care (01) ==
LOC: ED 11:26
DX: U07.1 COVID-19 (principal); R05.9 Cough, unspecified; R09.81 Nasal congestion; R53.83 Other fatigue; R53.1 Weakness; M79.10 Myalgia, unspecified site; E11.9 Type 2 diabetes mellitus without complications; Z79.84 Long term (current) use of oral hypoglycemic drugs; I10 Essential (primary) hypertension; J45.909 Unspecified asthma, uncomplicated; Z79.52 Long term (current) use of systemic steroids; Z79.899 Other long term (current) drug therapy
CPT/HCPCS: 36415; 71045; 80053; 83605; 83735; 83880; 84484; 85025; 85379; 87040; 93005; 93041; 99284; A9270-GY

== ENCOUNTER 2022-03-13 05:51 | Day surgery (SDC) | payer OTHER ==
[2022-03-13] MEDS ORDERED: Lactated Ringers 1,000 ML IV SCH (06:30)
[2022-03-13] MEDS ORDERED: DIPRIVAN 200 MG/20 ML IV ONE ×2 (07:17→07:33)
[2022-03-13 08:07] VITALS: O2SAT 97
[2022-03-13 08:13] VITALS: BP 136/75; PULSE 64
--- NOTE | 2022-03-13 11:43 | OP ---
SURGERY DATE/TIME: 03/13/2022 0726 PREOPERATIVE DIAGNOSIS: Screening exam. POSTOPERATIVE DIAGNOSIS: Polyp in the transverse colon. PROCEDURE: Colonoscopy with hot snare polypectomy. SURGEON: Dr. Christopher Lopez. ANESTHESIA: Medications given by anesthesia department. HISTORY: The patient is a 61-year-old white male patient presenting now for screening colonoscopy. The patient was appraised of the risks of the procedure including the risk of perforation, phlebitis, untoward reaction to medication, bleeding and missed lesions. The patient verbalized his understanding and desired to have the procedure performed. DESCRIPTION OF PROCEDURE: The patient was given the medications by the anesthesia department. He had continuous pulse oximetry, ECG monitoring, intermittent blood pressure monitoring during the examination. He was placed in the left lateral decubitus position. A digital rectal examination was performed and revealed normal anal sphincter tone, no masses and normal prostate. The flexible Olympus pediatric colonoscope was used to intubate the rectum. A view of the colon was developed sequentially to the cecum. Upon insertion and withdrawal was noted a polyp that was somewhat sessile in the transverse colon measuring approximately 1 cm in size this was removed using hot snare polypectomy and retrieved for pathologic evaluation. No mucosal lesions were encountered. The scope was removed from the patient who tolerated the procedure well and was sent back to OP recovery in good condition. The prep was noted to be fair to poor.
== END 2022-03-13 08:20 | disposition home or self-care (01) ==
LOC: SDC 05:51
PROVIDERS: ATTEND Family Medicine
DX: Z12.11 Encounter for screening for malignant neoplasm of colon (principal); K63.5 Polyp of colon; E11.9 Type 2 diabetes mellitus without complications
CPT/HCPCS: 82947; 88305; J2704

== ENCOUNTER 2022-08-02 16:07 | Emergency (ER) | payer OTHER ==
[2022-08-02 16:31] VITALS: BP 123/78; PULSE 84; O2SAT 98
--- NOTE | 2022-08-02 16:37 | ERPHSYRPT ---
- History of Present Illness Time Seen by Provider: 08/02/22 16:32 Source: patient Exam Limitations: no limitations Patient Subjective Stated Complaint: C/O laceration to left hand middle finger from a dog bite that occurred around 2pm today. Patient states that the dog bit him after he pointed in it's face and stated for it not to growl at him. The dog was inside at his ex-'s home when the incident occurred. Patient states that the animals vaccines are up-to-date. Triage Nursing Assessment: Patient ambulated back to ED. No SOB. He is alert and oriented. Opening in skin from reported animal bite noted left left hand middle finger, left hand middle knuckle area, and left hand 4th finger. HENRIQUE WNL. Physician History: Patient is a 61-year-old white male who was bitten on the left middle finger by his own dog. This occurred approximately 2-1/2 hours prior to arrival in the emergency room he has a superficial linear laceration of the distal pad of the left middle finger. Volar surface. Tetanus prophylaxis is up-to-date Timing/Duration: today Quality: painful Severity: mild Location: hands (Left middle finger) Possible Causes: other (Animal bite) Allergies/Adverse Reactions: Penicillins Allergy (Verified 08/02/22 16:18) Home Medications: Clonidine HCl 0.1 mg [Clonidine 0.1 mg Tablet] 0.1 mg PO TID 09/11/17 [History] Metformin HCl 1,000 mg PO BID 02/14/20 [History] Amlodipine Besylate 10 mg PO DAILY 02/07/21 [History] ALPRAZolam 1 MG [Xanax 1 mg] 1 mg PO BID 03/12/22 [History] Carbidopa/Levodopa [Carbidopa-Levodopa 25-250 Tab] 1 tab PO TID 03/12/22 [History] Divalproex Sodium [Depakote] 500 mg PO DAILY 03/12/22 [History] Fluticasone Propion/Salmeterol [Wixela 500-50 Inhub] 2 puffs IH DAILY 03/12/22 [History] Furosemide 20 mg [Lasix 20 mg] 20 mg PO DAILY 03/12/22 [History] Omeprazole 40 mg PO DAILY 03/12/22 [History] Pravastatin Sodium 20 mg PO DAILY 03/12/22 [History] Temazepam 15 mg [Restoril 15 MG] 30 mg PO DAILY 03/12/22 [History] Hx Tetanus, Diphtheria Vaccination/Date Given: Yes (Adacel on 04/20/21) Hx Influenza Vaccination/Date Given: Yes Hx Pneumococcal Vaccination/Date Given: No Immunizations Up to Date: Yes Travel Risk - International Travel Have you traveled outside of the country in past 3 weeks: No - Coronavirus Screening Are you exhibiting any of the following symptoms?: No Close contact with a COVID-19 positive Pt in past 14-21 Days: No - Vaccine Status Have you recieved a Covid-19 vaccination: Yes 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 - Vaccination Dates Date of 2cond Vaccination (if applicable): 01/02/21 - Review of Systems Constitutional: No Fever, No Chills Eyes: No Symptoms Ears, Nose, & Throat: No Symptoms Respiratory: No Cough, No Dyspnea Cardiac: No Chest Pain, No Edema, No Syncope Abdominal/Gastrointestinal: No Abdominal Pain, No Nausea, No Vomiting, No Diarrhea Genitourinary Symptoms: No Dysuria Musculoskeletal: No Back Pain, No Neck Pain Skin: No Rash Neurological: No Dizziness, No Focal Weakness, No Sensory Changes Psychological: No Symptoms Endocrine: No Symptoms All Other Systems: Reviewed and Negative - Past Medical History Pertinent Past Medical History: Yes Neurological History: Migraines ENT History: No Pertinent History Cardiac History: Hypertension Respiratory History: Asthma, Sleep Apnea Endocrine Medical History: Diabetes Type II, Other Musculoskeletal History: Osteoarthritis GI Medical History: No Pertinent History, Pancreatitis History: No Pertinent History Psycho-Social History: Anxiety, Depression, Panic Disorder, Other Male Reproductive Disorders: No Pertinent History Other Medical History: parkinsons - Past Surgical History Past Surgical History: Yes Neuro Surgical History: No Pertinent History Cardiac: No Pertinent History Respiratory: No Pertinent History Gastrointestinal: No Pertinent History, Hernia Repair Genitourinary: No Pertinent History Musculoskeletal: Other Male Surgical History: No Pertinent History Other Surgical History: cyst to tailbone. rt shoulder 09/01. hernia repair 2020 - Social History Smoking Status: Never smoker Exposure to second hand smoke: No Drug Use: marijuana Patient Lives Alone: No Significant Family History: no pertinent family hx - Nursing Vital Signs Nursing Vital Signs: Initial Vital Signs Temperature 97.4 F 08/02/22 16:19 Pulse Rate 84 08/02/22 16:19 Respiratory Rate 18 08/02/22 16:19 Blood Pressure 123/78 08/02/22 16:19 O2 Sat by Pulse Oximetry 98 08/02/22 16:19 Pain Scale Pain Intensity 10 - Physical Exam General Appearance: no apparent distress, mild distress, alert Eye Exam: PERRL/EOMI, eyes nml inspection Ears, Nose, Throat Exam: normal ENT inspection Neck Exam: non-tender, supple, full range of motion Respiratory Exam: airway intact, No respiratory distress Extremity Exam: other (Examination of the extremities is all within normal limits other than the left middle finger there is a 2 cm superficial linear laceration of the distal pad soft tissue edges are approximated.) Neurologic Exam: alert, oriented x 3, cooperative, normal mood/affect, No motor deficits Skin Exam: normal color, warm, dry SpO2 Interpretation: normal SpO2: 98 O2 Delivery: Room Air Procedures - Laceration/Wound Repair Left Finger Time of Procedure: 16:38 (There is a laceration superficial linear to the distal pad of the left middle finger) Wound Location: Left (Middle finger), hand Wound's Depth, Shape: superficial, linear Wound Explored: clean Irrigated: Yes Hibiclens Prep: Yes Wound Repaired With: Steri-strips, Dermabond Sterile Dressing Applied?: Yes Splint Applied?: No Sling Applied?: No - Progress Progress: improved - Departure Departure Disposition: Home Clinical Impression: Dog bite Condition: Stable Critical Care Time: No Referrals: AMBREEN SANDERS MD [Primary Care Provider] - Follow up/PCP as directed Instructions: Animal Bites (DC) Prescriptions: clindamycin HCL [Cleocin HCl] 150 mg PO TID 7 Days #21 cap
== END 2022-08-02 17:10 | disposition home or self-care (01) ==
LOC: ED 16:07
DX: S60.473A Other superficial bite of left middle finger, initial encounter (principal); W54.0XXA Bitten by dog, initial encounter; I10 Essential (primary) hypertension; E11.9 Type 2 diabetes mellitus without complications; Z79.84 Long term (current) use of oral hypoglycemic drugs; Z79.899 Other long term (current) drug therapy
CPT/HCPCS: 12001; 99281

== ENCOUNTER 2023-11-30 09:18 | Emergency (ER) | payer OTHER ==
--- NOTE | 2023-11-30 09:36 | ERPHSYRPT ---
- History of Present Illness Time Seen by Provider: 11/30/23 09:32 Source: patient Exam Limitations: no limitations Physician History: Patient is a 62-year-old white male who presents with a complaint of severe pain in the left lateral ankle and foot. He thinks that it is a recurrence of his gout. He reports that in the past he has had gout episodes and that his uric acid has been elevated.Normally he says the gout is in the great toe however this seems to have started in the left lateral ankle.He has not had imaging of the left foot in some time so we will do that today. Method of Injury: unknown Occurred: yesterday Quality: intermittent, throbbing Severity of Pain-Max: severe Severity of Pain-Current: moderate Lower Extremities Pain: hip: left, foot: left Modifying Factors: Improves With: movement Allergies/Adverse Reactions: Penicillins Allergy (Verified 11/30/23 09:28) Home Medications: Clonidine HCl 0.1 mg [Clonidine 0.1 mg Tablet] 0.1 mg PO TID 09/11/17 [History] Metformin HCl 1,000 mg PO BID 02/14/20 [History] Amlodipine Besylate 10 mg PO DAILY 02/07/21 [History] ALPRAZolam 1 MG [Xanax 1 mg] 1 mg PO BID 03/12/22 [History] Carbidopa/Levodopa [Carbidopa-Levodopa 25-250 Tab] 1 tab PO TID 03/12/22 [Histo ry] Divalproex Sodium [Depakote] 500 mg PO DAILY 03/12/22 [History] Fluticasone Propion/Salmeterol [Wixela 500-50 Inhub] 2 puffs IH DAILY 03/12/22 [History] Furosemide 20 mg [Lasix 20 mg] 20 mg PO DAILY 03/12/22 [History] Omeprazole 40 mg PO DAILY 03/12/22 [History] Pravastatin Sodium 20 mg PO DAILY 03/12/22 [History] Temazepam 15 mg [Restoril 15 MG] 30 mg PO DAILY 03/12/22 [History] Hx Tetanus, Diphtheria Vaccination/Date Given: Yes (Adacel on 04/20/21) Hx Influenza Vaccination/Date Given: Yes Hx Pneumococcal Vaccination/Date Given: No - Review of Systems Constitutional: No Fever, No Chills Eyes: No Symptoms Ears, Nose, & Throat: No Symptoms Respiratory: No Cough, No Dyspnea Cardiac: No Chest Pain, No Edema, No Syncope Abdominal/Gastrointestinal: No Abdominal Pain, No Nausea, No Vomiting, No Diarrhea Genitourinary Symptoms: No Dysuria Musculoskeletal: Joint Redness, Joint Pain, Joint Swelling, No Back Pain, No Neck Pain Skin: No Rash Neurological: No Dizziness, No Focal Weakness, No Sensory Changes Psychological: No Symptoms Endocrine: No Symptoms All Other Systems: Reviewed and Negative - Past Medical History Pertinent Past Medical History: Yes Neurological History: Other ENT History: No Pertinent History Cardiac History: Hypertension Respiratory History: Asthma Endocrine Medical History: Diabetes Type II Musculoskeletal History: Other GI Medical History: No Pertinent History, Pancreatitis History: No Pertinent History Psycho-Social History: Anxiety, Depression, Panic Disorder, Other Male Reproductive Disorders: No Pertinent History Other Medical History: PARKINSONS - DX'D 3 YEARS AGO WHEN HE HAD MULTIPLE FALLS AND TREMORS BUT STATES HE HAS SEEN 3 NEUROLOGIST AND ALL DO NOT FEEL HE HAS PARKINSONS BUT DON'T WANT TO TAKE HIM OFF THE MEDS. SX HX: PILONIDAL CYST, RIGHT ROTATOR CUFF, ESOPHAGEAL STRETCHING - Past Surgical History Past Surgical History: Yes Neuro Surgical History: No Pertinent History Cardiac: No Pertinent History Respiratory: No Pertinent History Gastrointestinal: No Pertinent History, Hernia Repair Genitourinary: No Pertinent History Musculoskeletal: Other Male Surgical History: No Pertinent History Other Surgical History: cyst to tailbone. rt shoulder 09/01. hernia repair 2020 Significant Family History: no pertinent family hx - Social History Smoking Status: Never smoker Exposure to second hand smoke: No Drug Use: marijuana Patient Lives Alone: No - Nursing Vital Signs Nursing Vital Signs: Initial Vital Signs Temperature 97.3 F 11/30/23 09:33 Pulse Rate 65 11/30/23 09:33 Respiratory Rate 20 11/30/23 09:33 Blood Pressure 165/79 11/30/23 09:33 O2 Sat by Pulse Oximetry 98 11/30/23 09:33 Pain Scale Pain Intensity 10 - Physical Exam General Appearance: alert Eyes, Ears, Nose, Throat Exam: moist mucous membranes Neck Exam: non-tender, supple Cardiovascular/Respiratory Exam: chest non-tender, normal breath sounds, regular rate/rhythm, no respiratory distress Gastrointestinal/Abdominal Exam: non-tender, guarding Back Exam: normal inspection, No vertebral tenderness Hips Exam: bilateral: non-tender, normal inspection, normal range of motion Legs Exam: bilateral leg: non-tender, normal inspection, normal range of motion Knees Exam: bilateral knee: non-tender, normal inspection, normal range of motion Ankle Exam: left ankle: bone tenderness, soft tissue tenderness, swelling Foot Exam: left foot: bone tenderness, deformity, limited range of motion, pain, soft tissue tenderness, swelling Neuro/Tendon Exam: normal sensation, normal motor functions Mental Status Exam: alert, oriented x 3, cooperative Skin Exam: normal color, warm, dry SpO2 Interpretation: normal SpO2: 95 O2 Delivery: Room Air - Radiology Exams Left Foot X-ray Interpretation: Reviewed by me, Negative Ordered Tests: Active Orders 24 hr Category Date Time Status FOOT (MINIMUM 3 VIEWS) Stat Exams 11/30/23 09:29 Taken SED RATE [Erythrocyte Sedimentation Rate] Stat Lab 11/30/23 09:35 Completed Uric Acid Stat Lab 11/30/23 09:35 Completed Medication Summary Discontinued Medications Generic Name Dose Route Start Last Admin Trade Name Edwardq PRN Reason Stop Dose Admin Ketorolac Tromethamine 60 mg 11/30/23 09:30 11/30/23 09:42 Ketorolac Tromethamine 30 Mg/Ml Inj IM 11/30/23 09:31 60 mg STAT ONE Administration Ketorolac Tromethamine Confirm 11/30/23 09:39 Ketorolac Tromethamine 30 Mg/Ml Inj Administered 11/30/23 09:40 Dose 60 mg .ROUTE .STK-MED ONE Triamcinolone Acetonide 40 mg 11/30/23 09:31 11/30/23 09:43 Triamcinolone Acetonide 40 Mg/Ml Ml IM 11/30/23 09:32 40 mg STAT ONE Administration Triamcinolone Acetonide Confirm 11/30/23 09:42 Triamcinolone Acetonide 40 Mg/Ml Ml Administered 11/30/23 09:43 Dose 80 mg .ROUTE .STK-MED ONE Lab/Rad Data: Laboratory Results 11/30/23 11/30/23 Range/Units 09:35 09:35 ESR 6 (0-15) mm/hr Uric Acid 8.4 H (3.5-7.2) mg/dL - Progress Progress: unchanged Medical Desision Making - Diagnostic Testing Diagnostic test were ordered, analyzed, and reviewed by me: Yes Radiological Interpretation: Interpreted by me - Risk of complications Minimal Risk: Minimal risk of morbidity - Departure Departure Disposition: Home Clinical Impression: Gouty arthritis Condition: Stable Critical Care Time: No Referrals: AMBREEN SANDERS MD [Primary Care Provider] - Follow up/PCP as directed Instructions: Gout (DC) Prescriptions: Hydrocodone/Acetaminophen [Hydrocodone-Acetamin 5-325 mg] 1 tab PO Q6HPRN PRN 3 Days #12 tablet MDD 4 PRN Reason: Pain Prednisone 10 mg [Deltasone 10 mg] 20 mg PO BID 5 Days #20 tablet Oxycodone HCl/Acetaminophen [Oxycodone-Acetaminophen 5-325] 1 each PO TID 3 Days #9 tablet MDD 3
[2023-11-30 09:37] VITALS: TEMP 97.3
[2023-11-30] MEDS ORDERED: TORAdol 30 mg Injection ONE (09:39)
[2023-11-30] MEDS: TORAdol 30 mg Injection IM ONE (09:42)
[2023-11-30] MEDS ORDERED: Kenalog-40 ONE (09:42)
[2023-11-30] MEDS: Kenalog-40 IM ONE (09:43)
[2023-11-30 10:39] VITALS: BP 183/87; PULSE 69; RESP 18; O2SAT 98
--- NOTE | 2023-11-30 20:15 | XRAY ---
Indication: Pain. Gout. Comparison: None 3 nonweightbearing views left foot demonstrates tiny plantar heel spur and small cuboid accessory ossicle. No other bony, articular, or soft tissue abnormalities.
== END 2023-11-30 10:51 | disposition home or self-care (01) ==
LOC: ED 09:18
DX: M10.9 Gout, unspecified (principal); M25.572 Pain in left ankle and joints of left foot; I10 Essential (primary) hypertension; E11.9 Type 2 diabetes mellitus without complications; Z79.891 Long term (current) use of opiate analgesic; Z79.52 Long term (current) use of systemic steroids; Z79.84 Long term (current) use of oral hypoglycemic drugs; Z79.899 Other long term (current) drug therapy
CPT/HCPCS: 36415; 73630; 84550; 85652; 96372; 99283; J1885; J3301

== ENCOUNTER 2024-11-06 11:45 | Emergency (ER) | payer OTHER ==
[2024-11-06 12:05] VITALS: TEMP 96.9
--- NOTE | 2024-11-06 12:09 | ERPHSYRPT ---
- History of Present Illness Time Seen by Provider: 11/06/24 11:58 Source: patient Exam Limitations: no limitations Physician History: Pt states 6 days ago he started with his typical gout attack and is here for shots for pain relief; states he was here before and received IM kenalog and toradol with good relief. Pt states his gout pain is in his right ankle/foot, left 1st MTP joint and left thumb. Pt denies chest pain, shortness of air, abdominal pain, fever, cough, headache. Allergies/Adverse Reactions: Penicillins Allergy (Verified 11/06/24 12:05) Home Medications: Clonidine HCl 0.1 mg [Clonidine 0.1 mg Tablet] 0.1 mg PO TID 09/11/17 [History] Metformin HCl 1,000 mg PO BID 02/14/20 [History] Amlodipine Besylate 10 mg PO DAILY 02/07/21 [History] ALPRAZolam 1 MG [Xanax 1 mg] 1 mg PO BID 03/12/22 [History] Carbidopa/Levodopa [Carbidopa-Levodopa 25-250 Tab] 1 tab PO TID 03/12/22 [History] Divalproex Sodium [Depakote] 500 mg PO DAILY 03/12/22 [History] Fluticasone Propion/Salmeterol [Wixela 500-50 Inhub] 2 puffs IH DAILY 03/12/22 [History] Furosemide 20 mg [Lasix 20 mg] 20 mg PO DAILY 03/12/22 [History] Omeprazole 40 mg PO DAILY 03/12/22 [History] Pravastatin Sodium 20 mg PO DAILY 03/12/22 [History] Temazepam 15 mg [Restoril 15 MG] 30 mg PO DAILY 03/12/22 [History] Hx Tetanus, Diphtheria Vaccination/Date Given: Yes (Adacel on 04/20/21) Hx Influenza Vaccination/Date Given: Yes Hx Pneumococcal Vaccination/Date Given: No Travel Risk - Emerging Infectious Disease Are you exhibiting symptoms associated with any current EIDs: No - Review of Systems Constitutional: No Fever Respiratory: No Cough, No Dyspnea Cardiac: No Chest Pain Abdominal/Gastrointestinal: No Abdominal Pain Musculoskeletal: Joint Pain (gout) Neurological: No Headache - Past Medical History Pertinent Past Medical History: Yes Neurological History: Other ENT History: No Pertinent History Cardiac History: Hypertension Respiratory History: Asthma Endocrine Medical History: Diabetes Type II Musculoskeletal History: Other GI Medical History: No Pertinent History, Pancreatitis History: No Pertinent History Psycho-Social History: Anxiety, Depression, Panic Disorder, Other Male Reproductive Disorders: No Pertinent History Other Medical History: PARKINSONS - DX'D 3 YEARS AGO WHEN HE HAD MULTIPLE FALLS AND TREMORS BUT STATES HE HAS SEEN 3 NEUROLOGIST AND ALL DO NOT FEEL HE HAS P ARKINSONS BUT DON'T WANT TO TAKE HIM OFF THE MEDS. SX HX: PILONIDAL CYST, RIGHT ROTATOR CUFF, ESOPHAGEAL STRETCHING - Past Surgical History Past Surgical History: Yes Neuro Surgical History: No Pertinent History Cardiac: No Pertinent History Respiratory: No Pertinent History Gastrointestinal: No Pertinent History, Hernia Repair Genitourinary: No Pertinent History Musculoskeletal: Other Male Surgical History: No Pertinent History Other Surgical History: cyst to tailbone. rt shoulder 09/01. hernia repair 2020 Significant Family History: no pertinent family hx - Social History Smoking Status: Never smoker Exposure to second hand smoke: No Drug Use: marijuana Patient Lives Alone: No - Social Determinants of Health Will the patient participate in the screening: Declined to provide - Nursing Vital Signs Nursing Vital Signs: Initial Vital Signs Temperature 96.9 F 11/06/24 11:55 Pulse Rate 74 11/06/24 11:55 Blood Pressure 154/89 11/06/24 11:55 O2 Sat by Pulse Oximetry 97 11/06/24 11:55 Pain Scale Pain Intensity 10 - Physical Exam General Appearance: alert Eye Exam: eyes nml inspection Ears, Nose, Throat Exam: pharynx normal Neck Exam: normal inspection Respiratory Exam: lungs clear Cardiovascular Exam: normal heart sounds Gastrointestinal/Abdomen Exam: normal bowel sounds Extremity Exam: tenderness (moderate tenderness over the right foot/ankle and left foot 1st MTP joint. Left thumb not edematous or erythematous.) Neurologic Exam: alert, cooperative Skin Exam: warm, dry Ordered Tests: Medication Summary Discontinued Medications Generic Name Dose Route Start Last Admin Trade Name Freq PRN Reason Stop Dose Admin Hydromorphone HCl 1 mg 11/06/24 12:09 11/06/24 12:59 Hydromorphone 1 Mg/1ml Inj IM 11/06/24 12:10 1 mg STAT ONE Administration Hydromorphone HCl Confirm 11/06/24 12:56 Hydromorphone 1 Mg/1ml Inj Administered 11/06/24 12:57 Dose 1 mg .ROUTE .STK-MED ONE Triamcinolone Acetonide 40 mg 11/06/24 12:09 11/06/24 13:00 Triamcinolone Acetonide 40 Mg/Ml Ml IM 11/06/24 12:10 40 mg STAT ONE Administration Triamcinolone Acetonide Confirm 11/06/24 12:57 Triamcinolone Acetonide 40 Mg/Ml Ml Administered 11/06/24 12:58 Dose 40 mg .ROUTE .STK-MED ONE - Progress Progress: improved Counseled pt/family regarding: diagnosis, need for follow-up - Departure Departure Disposition: Home Clinical Impression: Gout attack Condition: Stable Critical Care Time: No Referrals: AMBREEN SANDERS MD [Primary Care Provider] - Follow up/PCP as directed Instructions: Gout, Gout - ED discharge instructions Additional Instructions: Follow up with private doctor tomorrow. Forms: Work/School Release Form
[2024-11-06] MEDS ORDERED: Hydromorphone 1 mg/ml Injection ONE ×2 (12:56→14:20)
[2024-11-06] MEDS ORDERED: Kenalog-40 ONE (12:57)
[2024-11-06] MEDS: Hydromorphone 1 mg/ml Injection IM ONE ×2 (12:59→14:21)
[2024-11-06] MEDS: Kenalog-40 IM ONE (13:00)
[2024-11-06 14:36] VITALS: BP 148/87; PULSE 70; O2SAT 98
== END 2024-11-06 14:36 | disposition home or self-care (01) ==
LOC: ED 11:45
DX: M10.9 Gout, unspecified (principal); I10 Essential (primary) hypertension; E11.9 Type 2 diabetes mellitus without complications; Z79.84 Long term (current) use of oral hypoglycemic drugs; Z79.899 Other long term (current) drug therapy
CPT/HCPCS: 96372; 99283; 99284; J1171; J3301